=== PATIENT | male | born 1970 | race Caucasian/White ===

== ENCOUNTER 2020-12-27 14:12 | Outpatient (REF) | payer BC, SELFPAY ==
--- NOTE | ~2020-12-27 | MR_ITS ---
EXAMINATION: MR LUMBAR SPINE WITHOUT CONTRAST CLINICAL INFORMATION: 50-year-old with low back pain and left leg neuropathy. History of spinal fusion. COMPARISON: 04/26/2007 MRI. TECHNIQUE: MRI of the lumbar spine was obtained using routine sequences without contrast. FINDINGS: CORONAL ALIGNMENT:?Normal. SAGITTAL ALIGNMENT:?Trace retrolisthesis at L3-L4. LUMBOSACRAL JUNCTION:?Normal. VERTEBRAL BODIES: Normal height. BONE MARROW: Scattered benign vertebral hemangiomata at L3, L2 and T12. No suspicious marrow replacing process or bone marrow edema. CONUS MEDULLARIS:?Terminates at L1.?Morphology and signal is normal. INTRADURAL NERVE ROOTS: Within normal limits. L5-S1: Evidence of previous interbody fusion (ALIF) procedure, with predominant solid osseous fusion across the intervertebral disc space, with concentric osteophytic ridging without significant facet arthropathy. There is mild bilateral neural foraminal stenosis with disc osteophyte complex abutting the exiting L5 nerve roots bilaterally without significant canal compromise. L4-L5: Disc space height and signal are well maintained stable in appearance. Minimal disc bulging is noted on current study with slight flattening of the dural sac and mild anterior marginal endplate spurring without significant canal stenosis. There is mild foraminal narrowing on the left on the current study without neural impingement. L3-L4: Xpxc-hz-vieeusry loss of disc space height is noted, with disc desiccation consistent with disc degenerative change which has developed since the previous study. There is trace retrolisthesis at this level and there is flattening of the dural sac with vjte-ra-pkfubfdt anterolateral spondylosis progressed from previous exam. Degenerative marrow signal changes are seen along the endplates. There is mild central spinal canal stenosis, with mild narrowing of the subarticular zones bilaterally, with mild bilateral neural foraminal stenosis. Disc bulging abuts the exiting L3 nerve roots bilaterally. L2-L3: Disc space height has mildly narrowed since the previous exam with development of disc desiccation and moderate anterior marginal spondylosis developed since previous exam. There is diffuse disc bulging with a superimposed left foraminal disc herniation without significant facet arthropathy. There is mild flattening of the dural sac without significant central spinal canal or lateral recess stenosis. There is mild left-sided neural foraminal stenosis on the current study without neural impingement. L1-L2: Disc space height and signal well maintained without significant disc bulge or herniation and no significant spondylosis, facet arthrosis, canal or neural foraminal stenosis. PARASPINAL/RETROPERITONEAL: The paravertebral soft tissues appear unremarkable. There are multiple bilateral renal parapelvic cysts. MR/MR lumbar spine wo con IMPRESSION: 1. Evidence of previous anterior lumbar interbody fusion at the L5-S1 level with postoperative changes and mild neural foraminal narrowing, left more than right. 2. Development of discogenic degenerative changes at L2-L3 and L3-L4 with trace retrolisthesis at L3-L4 with development of disc bulging and spondylosis at these levels with crowding of the subarticular zones bilaterally at L3-L4 with mild central spinal canal stenosis and mild bilateral neural foraminal stenosis with disc bulging abutting the exiting L3 nerve roots bilaterally. Left-sided subarticular to foraminal disc herniation at L2-L3 also noted without neural impingement. Minimal disc bulging at L4-L5 as described above. 3. Probable bilateral renal parapelvic cysts.
== END 2020-12-27 14:13 | disposition home or self-care (01) ==
LOC: HO.MRI 14:12
PROVIDERS: Visit Provider Internal Medicine
DX: M54.16 Radiculopathy, lumbar region (principal); M54.9 Dorsalgia, unspecified; M43.26 Fusion of spine, lumbar region
CPT/HCPCS: 72148

== ENCOUNTER → 2022-02-19 12:01 | Outpatient (RCR) | payer BC, SELFPAY ==
--- NOTE | 2020-12-31 12:45 | MHC.PT.DC ---
[facility] [place] Office [place] Office [place] Office [address] Elmo Boyer [address] [phone] F: [phone] F: [phone] F: [phone] F: [phone] Physical Therapy Discharge Report Diagnosis: This is a 50 yo male presenting to skilled PT with a script for back pain, L leg radiculopathy. Date of Surgery: Date of Evaluation: 11/25/20 Date of Discharge: Treatments to Date: 6 Cancellations to Date: 0 No Shows to Date: 0 Discharge Status: Patient Elected to Stop Discharge Summary: 12/23: PT able to perform basic core activation exercises and activities in preferred ranges/ capacity well; Pt continues to report unchanged Sx and expresses frustration at having to go through PT before obtaining an image in order to see a specialist. 12/17/20: Ru has attended therapy for about 1 month for management of his back pain and L LE radicular symptoms; he has participated in treatment sessions and has been performing his home program to his tolerance with no meaningful change and demonstrates inability to centralize and abolish his L LE radicular symptoms. Ru has been working on his core strengthening, and activity modification though has not improved his tolerance for sitting and standing for duration, lifting objects of weight from the floor, he continues to require modifications to perform LE dressing d/t pain, and persists with intermittent severe pain and at least 2/10 baseline pain which is constant. Subjective back pain questionnaire (Susie) unchanged since evaluation. Electronically signed by: Alexx Ramirez PT. Please sign and return to therapist. Thank you for your referral.
== END | disposition home or self-care (01) ==
LOC: HO.PTCHIC 11-25 12:43
PROVIDERS: PCP Internal Medicine; Visit Provider Internal Medicine
DX: M54.9 Dorsalgia, unspecified (principal); M54.16 Radiculopathy, lumbar region; M43.26 Fusion of spine, lumbar region
CPT/HCPCS: 97110; 97140; 97161; 97530

== ENCOUNTER 2022-08-07 14:46 | Outpatient (REF) | payer BC, SELFPAY ==
--- NOTE | ~2022-08-07 | MR_ITS ---
EXAMINATION: MR CERVICAL SPINE WITHOUT CONTRAST CLINICAL INFORMATION: 52-year-old with self-reported neck and right shoulder pain radiating to the hand with tingling in the fingers of 6 months' duration. Cervical disc disorder with recurrent pain. History of C5-C6 surgery. COMPARISON: 09/29/2018 MRI. TECHNIQUE: MRI of the cervical spine was obtained using routine sequences without contrast. FINDINGS: ALIGNMENT: Slight lordotic reversal centered at C3-C4 slightly more apparent on current study. Retrospectively seen mild retrolisthesis of C5-C6 has been reduced status post ACDF at this level with metallic hardware artifact. CRANIOCERVICAL JUNCTION/C1-C2 ARTICULATIONS: Intact and aligned. VISUALIZED INTRACRANIAL STRUCTURES: Within normal limits. VERTEBRAL BODIES: Normal height. DISC SPACES AND ENDPLATES: Moderate disc space height loss and disc desiccation at C3-C4 stable in appearance, with a Schmorl's node along the inferior endplate of C3 asymmetric to the left similar to the previous exam. Status post ACDF at C5-C6 since the previous exam. Minor anterior marginal endplate spurring at C3-C4 unchanged. BONE MARROW: No significant marrow-replacing process or bone marrow edema within the limitations of the study with ferromagnetic artifact at C5-C6 partially obscuring the osseous structures at this level. Minimal type II degenerative marrow signal changes seen adjacent to a Schmorl's node along the inferior endplate of C3 on the left unchanged. Small benign vertebral hemangioma noted in the T1 vertebral body unchanged. C2-C3: Shallow broad-based disc protrusion stable in appearance without cord impingement or canal stenosis. Minor facet arthrosis on the right and mild uncinate process spurring on the left without significant neural foraminal stenosis. C3-C4: Mild broad-based disc osteophyte complex, with flattening of the ventral dural sac without cord impingement or significant canal stenosis. Uncovertebral spurring noted bilaterally similar to previous study with hbkcvxvp-mv-unheny bilateral neural foraminal stenosis, left more than right stable in appearance. C4-C5: Minimal central disc protrusion with slight indentation of the ventral thecal sac without cord impingement or significant canal stenosis stable in appearance. Bilateral uncinate process spurring noted with mild left and moderate right neural foraminal stenosis stable in appearance. C5-C6: Status post ACDF since the previous exam at this level, with an improvement in the appearance of the spinal canal. No recurrent spinal canal stenosis. Posterolateral osteophytic ridging is noted with minor facet hypertrophic changes. There is fkov-yd-howusqbw bilateral neural foraminal stenosis improved from previous exam. C6-C7: This level is not optimally visualized due to artifacts. Within these limitations, there is suspicion for a new right paramedian disc herniation which may be slightly impinging on the right side of the ventral spinal cord and possibly encroaching on the ventral root of C7 on the right but this is difficult to confirm with a high degree of certainty due to poor signal in this region. There is uncovertebral and facet arthrosis bilaterally with mild right-sided and moderate left-sided neural foraminal stenosis probably unchanged. C7-T1: No disc herniation or canal stenosis. Moderate bilateral facet arthropathy noted progressed from previous study, now with moderate bilateral neural foraminal stenosis progressed from previous study, with probable encroachment on the exiting C8 nerve roots bilaterally. Limited assessment at this level due to poor signal. SPINAL CORD: The cervical and visualized upper thoracic spinal cord is normal in caliber and signal throughout without focal lesion, edema or syrinx. EXTRACRANIAL SOFT TISSUES: The visualized extracranial head/neck soft tissues are unremarkable within the limitations of the study. MR/MR cervical spine wo con IMPRESSION: 1. Status post ACDF at the C5-C6 level since the previous exam with improvement in the appearance of the spinal canal and neural foramina at this level, with gwxv-yw-zklwvvdn residual bilateral neural foraminal stenosis. 2. Discogenic degenerative changes at C3-C4 with disc osteophyte complex and DJD at this level with yhkwqfpi-wb-bcmscw bilateral neural foraminal stenosis, left more than right stable in appearance. Mild left and moderate right-sided neural foraminal stenosis at C4-C5 unchanged. Mild right-sided and moderate left-sided neural foraminal stenosis at C6-C7 unchanged. 3. Minimal central disc protrusion at C4-C5 and mild broad-based disc protrusion at C2-C3 without cord impingement or canal stenosis stable in appearance. Possible new, small right paramedian disc herniation at C6-C7 which may be encroaching on the ventral aspect of the spinal cord on the right but difficult to confirm with a high degree of certainty due to poor signal intensity in the lower portion of the cervical spine. If clinically warranted, 3T MRI can be done for better assessment. 4. Bilateral facet arthropathy at C7-T1 progressed from previous exam now with rqatmanr-om-rvkfvi bilateral neural foraminal stenosis progressed from previous study with probable encroachment on the exiting C8 nerve roots bilaterally.
== END 2022-08-07 14:47 | disposition home or self-care (01) ==
LOC: HO.MRI 14:46
PROVIDERS: PCP Internal Medicine; Visit Provider Internal Medicine
DX: M50.122 Cervical disc disorder at C5-C6 level with radiculopathy (principal); M25.512 Pain in left shoulder
CPT/HCPCS: 72141

== ENCOUNTER 2023-01-08 16:39 | Outpatient (REF) | payer BC, SELFPAY ==
--- NOTE | ~2023-01-08 | XR_ITS ---
EXAMINATION: XR CHEST CLINICAL INFORMATION: Dyspnea COMPARISON: Chest radiographs 09/05/2010, 02/21/2007. TECHNIQUE: 3 views of the chest were obtained. FINDINGS: The lungs are clear. The vascularity is normal. The heart is normal in size. There is no pneumothorax, airspace consolidation, or effusion. The hilar and mediastinal contours are unremarkable. There are postsurgical changes lower cervical spine and a piercing overlying the right anterior chest. XR/XR chest 2V IMPRESSION: Unremarkable examination.
[2023-01-08 16:58] LABS: MANUAL DIFF FLAG NO
[2023-01-08 17:48] LABS: Basophils Percent Auto 0.3 % (0-2); Eosinophils Absolute Auto 0.1 X10*3/uL (0.0-0.4); Eosinophils Percent Auto 0.4 % (0-4); Hematocrit 51.4 % (42.0-52.0); Hemoglobin 17.2 g/dl (14.0-18.0); Imm Gran Abs Auto 0.05 X10*3/uL (0.00-0.03); Imm Gran Pct Auto 0.4 % (0.0-0.4); Lymphocytes Absolute Auto 0.8 X10*3/uL (1.2-4.9); Lymphocytes Percent Auto 5.7 % (20-40); Mean Corpuscular HGB Conc 33.5 g/dl (31.0-36.0); Mean Corpuscular Hemoglobin 28.4 pg (27.0-33.0); Mean Platelet Volume 9.5 fL (9.4-12.4); Monocytes Absolute Auto 0.7 X10*3/uL (0.1-1.2); Monocytes Percent Auto 5.4 % (2-11); Neutrophils Absolute Auto 11.6 x10*3/uL (2.0-8.3); Neutrophils Percent Auto 87.8 % (45-73); Platelet Count 329 X10*3/uL (160-400); Red Blood Count 6.05 X10*6/uL (4.60-5.80); Red Cell Distribution Width 13.5 % (11.0-16.0); White Blood Count 13.2 X10*3/uL (4.8-10.8)
[2023-01-08 18:24] LABS: B Type Natriuretic Peptide < 10 pg/mL (<100)
[2023-01-08 18:39] LABS: Thyroid Stimulating Hormone 1.43 uIU/mL (0.32-4.0)
[2023-01-08 18:40] LABS: Alanine Aminotransferase 53 U/L (0-40); Albumin Level 4.2 g/dL (3.5-5.0); Alkaline Phosphatase 62 U/L (39-117); Anion Gap 18 (12-20); Aspartate Amino Transferase 74 U/L (5-37); Bilirubin Total 0.6 mg/dL (0.0-1.0); Blood Urea Nitrogen 33 mg/dL (9-16); C Reactive Protein 0.67 mg/dL (< or = 0.50); Calcium 9.8 mg/dL (8.4-10.2); Carbon Dioxide 26 mmol/L (22-29); Chloride 101 mmol/L (96-108); Estimated Glomerular Filt Rate 54; Glucose Random 60 mg/dL (60-115); Potassium 5.2 mmol/L (3.3-5.1); Sodium 140 mmol/L (135-145)
[2023-01-08 18:55] LABS: D Dimer High Sensitivity 275 NG/ML
== END 2023-01-08 16:40 | disposition home or self-care (01) ==
LOC: HO.LAB 16:39
PROVIDERS: PCP Internal Medicine; Visit Provider Internal Medicine
DX: R30.0 Dysuria (principal); I45.10 Unspecified right bundle-branch block; G47.33 Obstructive sleep apnea (adult) (pediatric); M54.9 Dorsalgia, unspecified; E29.1 Testicular hypofunction; R60.9 Edema, unspecified; R00.2 Palpitations
CPT/HCPCS: 36415; 71046; 80053; 82550; 83880; 84443; 85025; 85379; 86140

== ENCOUNTER 2023-05-24 12:07 | Outpatient (REF) | payer BC, SELFPAY ==
--- NOTE | ~2023-05-24 | XR_ITS ---
EXAMINATION: XR HIP, LEFT CLINICAL INFORMATION: Pain. COMPARISON: None available. TECHNIQUE: AP and frog-leg lateral views of the left hip. FINDINGS: No fracture. Alignment is anatomic. Hip joint space is maintained. Soft tissues are unremarkable. Vasectomy clips are noted. XR/XR hip LT min 2V IMPRESSION: Normal left hip.
[2023-05-24 12:28] LABS: MANUAL DIFF FLAG NO
[2023-05-24 14:31] LABS: Basophils Absolute Auto 0.1 X10*3/uL (0.0-0.2); Eosinophils Absolute Auto 0.2 X10*3/uL (0.0-0.4); Eosinophils Percent Auto 2.4 % (0-4); Hematocrit 56.3 % (42.0-52.0); Hemoglobin 18.6 g/dl (14.0-18.0); Imm Gran Abs Auto 0.02 X10*3/uL (0.00-0.03); Imm Gran Pct Auto 0.3 % (0.0-0.4); Lymphocytes Percent Auto 15.4 % (20-40); Mean Corpuscular Hemoglobin 27.6 pg (27.0-33.0); Mean Corpuscular Volume 83.5 fL (80.0-98.0); Mean Platelet Volume 9.7 fL (9.4-12.4); Monocytes Absolute Auto 0.4 X10*3/uL (0.1-1.2); Monocytes Percent Auto 6.3 % (2-11); Neutrophils Absolute Auto 4.6 x10*3/uL (2.0-8.3); Neutrophils Percent Auto 74.6 % (45-73); Platelet Count 291 X10*3/uL (160-400); Red Blood Count 6.74 X10*6/uL (4.60-5.80); Red Cell Distribution Width 14.6 % (11.0-16.0); White Blood Count 6.2 X10*3/uL (4.8-10.8)
[2023-05-24 15:16] LABS: Erythrocyte Sedimentation Rate 1 MM/HR (0-15)
[2023-05-24 15:29] LABS: Alanine Aminotransferase 62 U/L (0-40); Alkaline Phosphatase 96 U/L (39-117); Anion Gap 13 (12-20); Aspartate Amino Transferase 58 U/L (5-37); Bilirubin Total 0.8 mg/dL (0.0-1.0); Blood Urea Nitrogen 27 mg/dL (9-16); C Reactive Protein < 0.10 mg/dL (< or = 0.50); Calcium 9.4 mg/dL (8.4-10.2); Carbon Dioxide 30 mmol/L (22-29); Chloride 102 mmol/L (96-108); Estimated Glomerular Filt Rate 58; Glucose Random 79 mg/dL (60-115); Potassium 4.7 mmol/L (3.3-5.1); Sodium 140 mmol/L (135-145); Total Protein 6.9 g/dL (6.5-8.0)
[2023-05-24 15:35] LABS: Thyroid Stimulating Hormone 0.97 uIU/mL (0.32-4.0)
== END 2023-05-24 12:08 | disposition home or self-care (01) ==
LOC: HO.XRAY 12:07
PROVIDERS: PCP Internal Medicine; Visit Provider Internal Medicine
DX: R00.0 Tachycardia, unspecified (principal); M25.552 Pain in left hip
CPT/HCPCS: 36415; 73502; 80053; 82550; 84439; 84443; 85025; 85652; 86140

== ENCOUNTER 2023-09-13 13:44 | Outpatient (REF) | payer BC, SELFPAY ==
--- NOTE | ~2023-09-13 | XR_ITS ---
EXAMINATION: XR CHEST CLINICAL INFORMATION: Right-sided pneumonia. COMPARISON: Chest 01/08/2023. TECHNIQUE: 2 views of the chest were obtained. FINDINGS: The lungs are well-expanded with bilateral patchy parahilar opacity suggestive of infiltrate. Rest of lungs are clear. The heart size and pulmonary vascularity is normal. No gross bony abnormality seen. XR/XR chest 2V IMPRESSION: Bilateral parahilar patchy opacity suggestive of infiltrate.
== END 2023-09-13 13:45 | disposition home or self-care (01) ==
LOC: HO.XRAY 13:44
PROVIDERS: PCP Internal Medicine; Visit Provider Internal Medicine
DX: J18.9 Pneumonia, unspecified organism (principal)
CPT/HCPCS: 71046

== ENCOUNTER → 2023-12-30 10:20 | Outpatient (BNVA) | payer SELFPAY | PROVIDERS: PCP Internal Medicine; Visit Provider Physician Assistant | DX: Z02.79 Encounter for issue of other medical certificate (principal) ==

== ENCOUNTER 2025-01-30 13:09 | Outpatient (AMB) | payer BC, SELFPAY ==
--- NOTE | 2025-01-30 13:14 | MHC.OFFVIS ---
Intake Visit Reasons: feeling of incomplete bladder emptying Intake Note: New patient presents today for initial visit for incomplete bladder emptying Urology Medication:none Blood Thinner:Eliquis Antibiotic Allergies:none PVR:30ml Allergies No Known Allergies [NKA] Allergy (Verified 01/30/25 13:16) HPI Comments Details: Ru is a very pleasant 54-year-old male patient of Dr. Plaza. He has a past medical history of obstructive sleep apnea, hyperlipidemia, congestive heart failure, AFib, pulmonary embolisms, anxiety, and depression. He presents to the office today as a new patient for ongoing lower urinary tract symptoms. In discussion with the patient today he reports following up with his PCP in discussing ongoing episodes of incomplete bladder emptying, weak urinary stream, and nocturia he had been experiencing at which time recommendations were made for urology referral for further assessment evaluation. In review of patient's chart it appears he has had a recent retroperitoneal ultrasound 12/12 that notes normal urinary bladder. Prostate volume of 38 mL. No sonography thick evidence of nephrolithiasis or hydronephrosis. Left peripelvic cysts measuring up to 2.7 cm PSA 11/11 1.5. In office urinalysis results were reviewed with the patient today PVR 30 mL. We discussed potential causes of lower urinary tract symptoms patient was experiencing as well as further treatment options and risks and benefits of these treatment options. He otherwise denies incontinence,hematuria, dysuria, foul smelling urine, flank pain, fever, and or chills. He does report compliance with CPAP for his sleep apnea. He otherwise offers no other issues or concerns at this time. [facility] Medical History Obstructive sleep apnea syndrome Reticular venous varices Right bundle branch block Obesity Obesity with body mass index 30 or greater Hyperlipidemia Testicular hypofunction Umbilical hernia Factor V Leiden mutation Congestive heart failure Atrial fibrillation History of pulmonary embolus (PE) Post cardiotomy syndrome Generalized anxiety disorder Mixed anxiety and depressive disorder Major depressive disorder Chronic kidney disease Herpes labialis Dependence on continuous positive airway pressure ventilation Surgical History History of umbilical hernia repair History of lumbar spinal fusion Hx of cervical spine surgery Review of Systems Const All systems reviewed & are unremarkable except as noted in HPI and below Physical Exam Const General: cooperative, healthy appearing, comfortable, no acute distress, well developed, alert and awake Orientation/consciousness: patient oriented x3 Limitations: no limitations HEENT Head: Yes normal to inspection, Yes normocephalic and Yes atraumatic Ears: hearing grossly normal bilaterally Eyes General: appearance normal, both eyes and all related structures Neck Neck: Yes normal visual inspection and Yes trachea midline Chest Chest palpation & inspection: normal inspection of the chest Resp Effort & Inspection: normal respiratory effort and able to speak in complete sentences Cardio Rate: regular rate GI Inspection: Yes normal to inspection General: Yes no CVA tenderness Back/Spine/Pelvis Back: no CVA tenderness Skin General skin exam: no rashes or lesions noted Neuro General: patient oriented x3 Extrem General: Yes normal to inspection Psych Appearance: grossly normal and well kempt Mental Status: mental status grossly normal Speech and movement: Normal speech and movement present and Clear speech present Affect: normal affect Attitude: cooperative Thought process: Normal thought process present Thought content: Normal thought content present Insight: Fair insight present (Psych) Judgement: Fair judgement present (Psych) Office Procedures Post Void Residual Post Residual Void Post Void Residual (PVR): 30 37702-Qnex Void Residual by ultrasound Results AMB Urinalysis, Automated UA Leukoctes 0 Cassie/uL Last Edit by Verified Person on 01/30/25 13:58 UA Nitrite Last Edit by Verified Person on 01/30/25 13:58 UA Urobilinogen 0.2 mg/dL Last Edit by Verified Person on 01/30/25 13:58 UA Protein 15 mg/dL Last Edit by Verified Person on 01/30/25 13:58 UA pH 6.0 Last Edit by Verified Person on 01/30/25 13:58 UA Blood 10 Aniket/uL Last Edit by Verified Person on 01/30/25 13:58 UA Specific Fowler 1.015 Last Edit by Verified Person on 01/30/25 13:58 UA Ketone Last Edit by Verified Person on 01/30/25 13:58 UA Bilirubin 0 mg/dL Last Edit by Verified Person on 01/30/25 13:58 UA Glucose 1000 mg/dL Last Edit by Verified Person on 01/30/25 13:58 Assessment & Plan Assessment & Plan (1) Weak urinary stream: Code(s): R39.12 - Poor urinary stream Category: Medical (2) Nocturia: Code(s): R35.1 - Nocturia Category: Medical (3) Feeling of incomplete bladder emptying: Code(s): R39.14 - Feeling of incomplete bladder emptying Category: Medical Plan In office urinalysis results reviewed with the patient today; as noted above. PVR 30 mL. Recent retroperitoneal ultrasound results reviewed with the patient today; as noted above. Recent PSA results reviewed with the patient today; as noted above. We discussed at length potential causes of lower urinary tract symptoms he is experiencing as well as further treatment options and risks and benefits of these treatment options. Start Flomax as discussed and prescribed. We discussed importance of limiting fluids 2-3 hours prior to bed to decrease episodes of nocturia. We discussed importance of continuing compliance with CPAP machine in relation to nocturia as well as overall health and well-being. Follow-up in 1-3 months with PVR; or sooner with any issues, concerns, and or questions. Orders: Orders AMB Urinalysis Automated Today Z13.9 - Encounter for screening, unspecified AMB Post Void Residual by ultrasound Today Z13.9 - Encounter for screening, unspecified Medications: New tamsulosin 0.4 mg PO BEDTIME 30 days 30 caps 3RF N40.1 - Benign prostatic hyperplasia with lower urinary tract symptoms, R35.1 - Nocturia Patient Instructions: The patient had an opportunity to ask questions regarding the treatment plan. All questions were answered. Physical exam, labs, and imaging were discussed and reviewed in detail. As well as risks, benefits, and discussion of treatment choices. No major barriers to understanding were identified. The patient expressed understanding and agreement with the above treatment plan. The patient was made aware they should contact our office by phone for worsening of their current condition, the appearance of new symptoms, or with any questions or concerns. Compliance is encouraged with any medications and follow up testing that is ordered. It is a privilege to be allowed the opportunity to participate in? your urological care.? Again, if you have any questions or concerns If you have any questions or concerns please do not hesitate to contact me. The office is [phone]. This note is constructed using voice recognition software. While every effort has been made to ensure accuracy protective service specialist errors may have been included. Yours sincerely, DORENE Schaefer- Coding Level of Care Code New Pt Level 4 (70895) Diagnoses Weak urinary stream R39.12 Nocturia R35.1 Feeling of incomplete bladder emptying R39.14 CPT Codes Post Residual Void - PVR CPT Code: 75874-Npme Void Residual by ultrasound ([id number])
--- OUTSIDE RECORDS SUMMARY | 2025-01-30 16:02 | XMS_ITS | Encounter Summary ---
Author Organization [facility] Address [address] [place] [address] Phone Care Team Providers Care Senior Sql Server Dba Name Role Phone Artemio Plaza MD Primary Care Provider [phone] Encounter Details Date Type Department Care Team (Late st Contact Info) Description 01/01/2025 Documentation Only [facility] [address] [place] [address] Martin Minor [place] [address] [place] [phone] Social History Tobacco Use Types Packs/Day Years Used Date Smoking Tobacco: Never Assessed Sex and Gender Information Value Date Recorded Sex Assigned at Not on file Legal Sex Male 2:30 PM EDT Gender Identity Not on file Sexual Orientation Not on file documented as of this encounter Plan of Treatment Upcoming Encounters Date Type Department Care Team (Late st Contact Info) Description 05/30/2025 3:30 PM EDT Office Visit [facility] [address] [place] [address] Juan Pablo Chery [address] [place] [address] documented as of this encounter Visit Diagnoses Not on filedocumented in this encounter Care Teams Senior Sql Server Dba Relationship Specialty Start Date End Date Artemio Plaza MD [address] [phone] PCP - General Family Medicine 01/01/25 documented as of this encounter
--- OUTSIDE RECORDS SUMMARY | 2025-01-30 16:02 | XMS_ITS | Encounter Summary ---
Author Organization [facility] Address [address] [place] [address] Phone Care Team Providers Care Repairer Finished Metal Name Role Phone Artemio Plaza MD Primary Care Provider [phone] Encounter Details Date Type Department Care Team (Late st Contact Info) Description 01/24/2025 Documentation Only [facility] [address] [place] [address] Martin Minor MD [address] [place] [phone] Social History Tobacco Use Types Packs/Day Years [...] Visit [facility] [address] [place] [address] Juan Pablo Chery [address] [place] [address] documented as of this encounter Visit Diagnoses Not on filedocumented in this encounter Care Teams Repairer Finished Metal Relationship Specialty Start Date End Date Artemio Plaza MD [address] [phone] PCP - General Family Medicine 01/01/25 documented as of this encounter
--- OUTSIDE RECORDS SUMMARY | 2025-01-30 16:02 | XMS_ITS | Clinical Summary ---
Author Organization [facility] Address [address] [place] [address] Phone Care Team Providers Care Stonecutter Name Role Phone Artemio Plaza MD Primary Care Provider [phone] Encounters Date Type Department Care Team Description 01/24/2025 Documentation Only [facility] [address] [place] [address] Martin Minor MA 01/16/2025 Telephone [facility] [address] [place] [address] Martin Minor MA 01/01/2025 Documentation Only [facility] [address] [place] [address] Martin Minor MA from Last 3 Months Social History Tobacco Use Types Packs/Day Years Used Date Smoking Tobacco: Never Assessed Sex and Gender Information Value Date Recorded Sex Assigned at Not on file Legal Sex Male 2:30 PM EDT Gender Identity Not on file Sexual Orientation Not on file Plan of Treatment Upcoming Encounters Date Type Department Care Team (Late st Contact Info) Description 05/30/2025 3:30 PM EDT Office Visit [facility] [address] [place] [address] Juan Pablo Chery [address] [place] [place] [address] Health Maintenance Due Date Last Done Comments Hepatitis B Vaccine (1 of 3 - 19+ 3-dose series) 06/26 Pneumococcal Vaccine: 50+ Years (1 of 2 - PCV) 988 Colorectal Cancer Screening: Annual FOBT 2018 Colorectal Cancer Screening: Colonoscopy 2018 Colorectal Cancer Screening: Sigmoidoscopy 2018 Influenza Vaccine (Season Ended) 2025 Insurance [facility] Care Teams Stonecutter Relationship Specialty Start Date End Date Artemio Plaza MD [address] [phone] PCP - General Family Medicine 01/01/25
--- OUTSIDE RECORDS SUMMARY | 2025-01-30 16:02 | XMS_ITS | Patient Health Record ---
[facility] Address [address] [place] [address] Care Team Providers Care Sales And Service Agent Name Role Phone Artemio Plaza Primary Care Provider Bhavana Pennington Unavailable [phone] Allergies No Known Allergies Reason For Referral Diagnosis 1 Hallux valgus (acqui red), right foot (M20.11) Diagnosis 2 Other hammer toe(s) (acquired), right foot (M20.41) Diagnosis 3 Pain in right foot ( M79.671) Diagnosis 4 Pain in left foot (M 79.672) Diagnosis 5 Other viral warts (B 07.8) Diagnosis 6 Tinea unguium (B35.1 ) Referring Provider First Name Artemio Referring Provider Last Name Bola [facility] Bhavana Lopez Referred Address [address] [place], [place],[address], Referred Provider Specialty Podiatry Referral Priority Routine Medications Medication SIG (Take, Route, Fr equency, Duration) Notes Start Date End Date Status Venlafaxine HCl Acti ve Vitamin C Active traZODone HCl 150 MG 1 tablet at bedtime Orally Once a day for 30 day(s) Active Testosterone Active Multivitamin Active Immunizations Vaccine Route Administration Date Status Comme nts COVID-19 Moderna Vaccine Unknown 06/18/2022 Administered 2020,2020,2020 unsure dates Social History Tobacco Use: Social History Observation Description Date Details (start date - stop date) Former Smoker NA - NA Tobacco Use/Smoking Question Answer Notes Are you a: former smoker Additional Findings: Tobacco Non-User Current no n-smoker Alcohol Screen Question Answer Notes Did you have a drink containing alcohol in the p ast year? No Points 0 Interpretation Negative Tobacco use other than smoking: Question Answer Notes Are you an other tobacco user? No Problems Problem Type SNOMED Code ICD Code Onset Dates Problem Status W/U Status Risk Notes Problem Acquired hallux valgus (82180782) Hallux valgus (acquired), right foot (M20.11) Active confirmed Problem Acquired hammer toe of right foot ([id number] 105) Other hammer toe(s) (acquired), right foot (M20.41) Active confirmed Encounters Encounter Location Date Provider Diagnosis [facility] [place] [address] [place] [address] 11/01/2024 Bhavana Lopez Plan Of Treatment Pending Test Test Name Order Date X ray : Foot, right 3V 11/23/2022 Insurance Providers Payer Name Payer Address Payer Phone Subscriber Number Group Number Insured Name Patient Relationship to Insured Coverage Start Date Coverage End Date [facility] [address] [place] [address] [id number] Sandeep Victor Self - patient is the insured Medical (General) History Medical History History ICD Code Broken bones Chicken pox Bone implants/screws Surgical History Surgery Date(Month/Year) L 5 S1 Fusion C4 disc replacement 11/11/22 C3 C4 disc replacement /fusion
--- OUTSIDE RECORDS SUMMARY | 2025-01-30 16:03 | XMS_ITS ---
Author Organization [facility] Address [address] [place] [address] Care Team Providers Care Repairer Switchgear Name Role Phone Artemio Plaza Primary Care Provider Bhavana Pennington [phone] Encounters Encounter Location Date [facility] [address] [address] 11/07/2024 Bhavana Lopez Plan Of Treatment No Information Progress Notes * Sandeep HERNÁNDEZ MDOB:1970 (54 yo M)Acc No.[id number]:11/07/2024 Progress Note Patient:?Sandeep HERNÁNDEZ Provider:?Bhavana Lopez DPM :1970???Age:54 Y???Sex:Male [place] e:11/07/2024 Address:[address] [place], [place] [id number] Pcp:Artemio Plaza Subjective: * Chief Complaints: * ??? * Medical History:? Objective: * Vitals:? Assessment: Plan: * Treatment: * Images: * The named appointment provid er may or may not be the originator of this progress note, and it is not deemed complete until electronically signed by the appointment provider. Sign off status: Pending * Provider:?Bhavana Lopez DPM Date:?0 11/07/2024 Generated for Jackelin rangel/Mckay/eTransmitting on:?01/30/2025 04:02 PM EDT
--- OUTSIDE RECORDS SUMMARY | 2025-01-30 16:03 | XMS_ITS | Data Portability ---
Author Organization [facility], Main Office Address [address] [place] [address] Care Team Providers Care Terrazzo Grinder Name Role Phone MIRNA BILLY Primary Care Provider [phone] MIRIAM HEDRICK Project Management Analyst HILTON HERNANDEZ [facility] dudley MISHA GIBBS General Surgeon [phone] Assessment Encounter Date Assessment Date Assessment LastModified by Organization Details LastModified Time 01/06/2024 01/06/2024 Discussed with patient the signs/symptoms warranted for a return to office visit and/or an ER visit. Patient understood and agreed with the plan. Not available 01/06/2024 10:58:31 01/24/2024 01/24/2024 This service was provided using telemedicine. Patient consented to video & audio visit Patient was located in the [facility]. Provider was located in the office. No other persons participated in the telemedicine visit except for the patient unless otherwise indicated here. {{}} Total time of visit was 10 minutes. [email or web address] Not available 01/24/2024 16:22:54 Plan of Treatment Reminders Order Date Submit Date Provider Last Modified By Organization Details Last Modified Time Details Appointments PE EST 2024 10:30A M Mirna Billy MD Not available Not available Not available Lab PSA, serum or plasma 2024 025 ROGER [facility] (Centralized Electronic Ordering - All Locations), Patient Can Go To The Location Of Their Choice, [id number] 11/18/2024 08:08:47 urinal ysis comple te, reflex cultur e 2024 025 ROGER [facility] (Centralized Electronic Ordering - All Locations), Patient Can Go To The Location Of Their Choice, 11/18/2024 08:08:46 BMP, serum or plasma 2024 025 ROGER [facility] (Centralized Electronic Ordering - All Locations), Patient Can Go To The Location Of Their Choice, 11/18/2024 08:08:46 HbA1c (hemog lobin A1c), blood 2024 025 ROGER [facility] (Centralized Electronic Ordering - All Locations), Patient Can Go To The Location Of Their Choice, 11/18/2024 08:08:49 testos terone , total, serum 2024 ROGER [facility] (Centralized Electronic Ordering - All Locations), Patient Can Go To The Location Of Their Choice, 11/18/2024 08:08:48 albumi n, serum or plasma 2024 025 ROGER [facility] (Centralized Electronic Ordering - All Locations), Patient Can Go To The Location Of Their Choice, 11/18/2024 08:08:50 shbg (sex hormon e-bind ing globul in), serum 2024 ROGER [facility] (Centralized Electronic Ordering - All Locations), Patient Can Go To The Location Of Their Choice, 11/18/2024 08:08:51 estrad iol, serum 2024 025 ROGER [facility] (Centralized Electronic Ordering - All Locations), Patient Can Go To The Location Of Their Choice, 11/18/2024 08:08:48 unlist ed lab - jak2 exon 12 mutati on detect ion 2023 024 ROGER [facility], [address], [place], [id number], 11/18/2023 09:06:45 CBC w/ auto diff 2023 024 ROGER [facility], [address], [address], [place], [address], 11/10/2023 10:25:35 TSH, serum or plasma 2023 024 ROGER [facility], [address], [place], [place], [address], 11/10/2023 11:03:21 CMP, serum or plasma 2023 024 ROG[facility], [address], [address], [place], [address], 11/10/2023 10:45:27 PSA, serum or plasma - Screen ing 2023 024 ROGER [facility], [address], [address], [place], [address], 11/10/2023 11:20:16 magnes ium, serum or plasma 2023 024 ROGER [facility], [address], [address], [place], [address], 11/10/2023 10:45:33 erythr opoiet in (epo), serum 2023 024 ROG[facility], [address], [address], [place], [address], 11/11/2023 10:07:04 unlist ed lab - jak2 mutati on analys is 2023 024 ROGER [facility], [address], [address], [place], [address], 11/17/2023 15:15:57 iron + total iron-b inding capaci ty (TIBC) , serum 2023 024 ROGER [facility], [address], [address], [place], [address], 11/10/2023 10:45:28 ferrit in, serum or plasma 2023 024 ROGER [facility], [address], [place], [place], [address], 11/10/2023 11:03:19 lipid panel, serum 2023 024 [email or web address] s [facility], [address], [address], [place], [address], 11/02/2023 13:25:56 hepati tis C virus Ab, serum 2023 024 ROGER [facility], [address], [address], [place], [address], 11/10/2023 22:54:30 unlist ed lab - urinal ysis w/refl ex cultur e 2023 024 ROGER [facility], [address], [address], [place], [address], 11/10/2023 10:50:59 protei n:crea tinine ratio, urine 2023 024 ROGER [facility], [address], [address], [place], [address], 11/10/2023 11:29:50 microa lbumin , urine 2023 024 ROGER [facility], [address], [address], [place], [address], 11/10/2023 11:29:54 unlist ed lab - chlori de, urine, random 2023 024 ROGER [facility], [address], [address], [place], [address], 11/10/2023 11:43:21 potass ium, urine 2023 024 ROGER [facility], [address], [address], [place], [address], 11/10/2023 11:29:51 sodium , urine 2023 024 ROGER [facility], [address], [place], [place], [address], 11/10/2023 11:43:22 CK (creat ine kinase ), total, serum 2023 024 ROGER [facility], [address], [place], [address], 11/10/2023 10:45:34 unlist ed lab - urea nitrog en, urine 2023 024 ROG[facility], [address], [address], [place], [address], 11/10/2023 11:16:00 lipase , serum or plasma 2023 024 ROGER [facility], [address], [place], [address], 11/10/2023 10:45:31 gamma- glutam yl transf erase (ggt), serum 2023 024 ROGER [facility], [address], [address], [place], [address], 11/10/2023 10:45:30 Referral podiat rist referr al - onycho mycosi s of toenai ls 2023 024 [facility], [address], [address], [place], [address], 07/04/2024 08:45:45 dermat ologis t referr al - 2 seborr heic kerato sis on the back 2023 024 [facility], [address], [place], [address], 07/04/2024 08:45:44 genera l surgeo n referr al - for 6 or more visits if needed 2023 024 alan Gibbs MD, [address] [facility] [address], [place], [address], 10/23/2024 11:13:02 gastro entero logist referr al - Needs colon cancer screen ing 2023 024 [email or web address], [address] [place], [address], 11/11/2023 15:42:25 Procedures colono scopy screen ing (PROC) 2023 024 red In-Office Order, Internal Use Only DO Not Attach Compendium DO Not Attach Compendium, Do Not Delete/merge, [id number] 10/27/2023 09:18:24 Surgeries None record ed. Imaging US, bladde r - US bladde r volume study, pls try to visual ize prosta te if possib le, avoidi ng transr ectal US. 2024 025 alan [facility] [place], [address] [facility], [address], [place], [address], 12/05/2024 09:03:55 US, abdome n, limite d - Focus on RUQ., Also has KEYUR if you can focus on kidney as well it would be helpfu ll. 2023 024 ROGER Not available 11/15/2023 08:39:43 Medication Orders valacy clovir 1 gram tablet [address] [id number], [address], [place], [id number], 11/30/2024 15:27:13 Patient TargetsNo targets recorded. Patient Instructions Encounter Date Encounter Id Patient Instructions Last Modified By Organization Details Last Modified Time 10/26/2023 [id number] When You Want to Lose Weight: Care Instructions [email or web address] Not available 10/26/2023 10:54:39 Prostate Cancer Screening [email or web address] Not available 10/26/2023 10:54:39 high blood pressure: care instructions ckokar Not available 10/26/2023 10:54:39 learning about high blood pressure ckokar Not available 10/26/2023 10:54:39 polycythemia: care instructions ckokar Not available 10/26/2023 10:54:39 Well Visit 50 to 65: Care Instructions [email or web address] Not available 10/26/2023 10:54:39 learning about colon cancer ckokar Not available 10/26/2023 10:54:39 body mass index: care instructions ckokar Not available 10/26/2023 10:54:38 learning about healthy weight ckokar Not available 10/26/2023 10:54:39 11/09/2023 [id number] polycythemia: care instructions [email or web address] Not available 11/09/2023 14:16:50 01/06/2024 [id number] skin lesions: care instructions Not available 01/06/2024 11:05:29 Reason for Referral Acute Specialist Referral for Screening for malignant neoplasm of colon Needs colon cancer screening Referring Physician: Mirna Billy [facility], Encounter Date: 10/26/2023 General Surgeon Referral for Umbilical hernia for 6 or more visits if needed Referring Physician: Mirna Billy [facility], Encounter Date: 10/26/2023 Compressor Mechanic Referral for S kin lesion 2 seborrheic keratosis on the back Referring Physician: Gabriela Jorgensen [facility], Encounter Date: 01/06/2024 [employer] Support Planner Referral for Onyc homycosis of toenails onychomycosis of toenails Referring Physician: Gabriela Jorgensen [facility], Encounter Date: 01/06/2024 Results Created Date Observation Date Name Description Value Unit Range Abnormal Flag Note LastModifiedBy Organization Detail LastModifiedTime 11/10/19 24 11/10/2023 COMPL ETE CBC WITH DIFF WBC 7.3 K/mm3 (4.0-1 1.0) Not Available [facility] (Centralized Electronic Ordering - All Locations) Patient Can Go To The Location Of Their Choice, [id number] 11/10/2023 10:25:35 11/10/1911/10/2023 COMPL ETE CBC WITH DIFF RBC 6.25 M/mm3 (4.70- 6.10) high Not Available [facility] (Centralized Electronic Ordering - All Locations) Patient Can Go To The Location Of Their Choice, 11/10/2023 10:25:35 11/10/1911/10/2023 COMPL ETE CBC WITH DIFF HGB 18.3 gm/dL (13.7- 17.1) high Not Available [facility] (Centralized Electronic Ordering - All Locations) Patient Can Go To The Location Of Their Choice, 11/10/2023 10:25:35 11/10/1911/10/2023 COMPL ETE CBC WITH DIFF HCT 53.0 % (40.5- 50.0) high Not Available [facility] (Centralized Electronic Ordering - All Locations) Patient Can Go To The Location Of Their Choice, 11/10/2023 10:25:35 11/10/1911/10/2023 COMPL ETE CBC WITH DIFF MCV 84.8 fL (80.0- 94.0) Not Available [facility] (Centralized Electronic Ordering - All Locations) Patient Can Go To The Location Of Their Choice, 11/10/2023 10:25:35 11/10/1911/10/2023 COMPL ETE CBC WITH DIFF MCH 29.3 pg (27.0- 34.0) Not Available [facility] (Centralized Electronic Ordering - All Locations) Patient Can Go To The Location Of Their Choice, 11/10/2023 10:25:35 11/10/1911/10/2023 COMPL ETE CBC WITH DIFF MCHC 34.5 g/dL (33.0- 37.0) Not Available [facility] (Centralized Electronic Ordering - All Locations) Patient Can Go To The Location Of Their Choice, 11/10/2023 10:25:35 11/10/1911/10/2023 COMPL ETE CBC WITH DIFF plt 188 K/mm3 (150-4 60) Not Available [facility] (Centralized Electronic Ordering - All Locations) Patient Can Go To The Location Of Their Choice, 11/10/2023 10:25:35 11/10/1911/10/2023 COMPL ETE CBC WITH DIFF RDW-SD 42.6 fL (<47.0 ) Not Available [facility] (Centralized Electronic Ordering - All Locations) Patient Can Go To The Location Of Their Choice, 11/10/2023 10:25:35 11/10/1911/10/2023 COMPL ETE CBC WITH DIFF MPV 10.4 fL (9.4-1 2.4) Not Available [facility] (Centralized Electronic Ordering - All Locations) Patient Can Go To The Location Of Their Choice, 11/10/2023 10:25:35 11/10/1911/10/2023 COMPL ETE CBC WITH DIFF automated NRBC 0.0 #/100 _WBC' s Not Available [facility] (Centralized Electronic Ordering - All Locations) Patient Can Go To The Location Of Their Choice, 11/10/2023 10:25:35 11/10/1911/10/2023 COMPL ETE CBC WITH DIFF abs. NRBC 0.0 K/mm3 Not Available [facility] (Centralized Electronic Ordering - All Locations) Patient Can Go To The Location Of Their Choice, 11/10/2023 10:25:35 11/10/1911/10/2023 COMPL ETE CBC WITH DIFF neut # 5.7 K/mm3 (1.3-7 .0) Not Available [facility] (Centralized Electronic Ordering - All Locations) Patient Can Go To The Location Of Their Choice, 11/10/2023 10:25:35 11/10/1911/10/2023 COMPL ETE CBC WITH DIFF lymph # 0.9 K/mm3 (0.8-3 .1) Not Available [facility] (Centralized Electronic Ordering - All Locations) Patient Can Go To The Location Of Their Choice, 11/10/2023 10:25:35 11/10/1911/10/2023 COMPL ETE CBC WITH DIFF mono# 0.5 K/mm3 (0.4-1 .3) Not Available [facility] (Centralized Electronic Ordering - All Locations) Patient Can Go To The Location Of Their Choice, 11/10/2023 10:25:35 11/10/1911/10/2023 COMPL ETE CBC WITH DIFF eo # 0.2 K/mm3 (0.0-0 .4) Not Available [facility] (Centralized Electronic Ordering - All Locations) Patient Can Go To The Location Of Their Choice, 11/10/2023 10:25:35 11/10/1911/10/2023 COMPL ETE CBC WITH DIFF baso # 0.0 K/mm3 (0.0-0 .1) Not Available [facility] (Centralized Electronic Ordering - All Locations) Patient Can Go To The Location Of Their Choice, 11/10/2023 10:25:35 11/10/1911/10/2023 COMPL ETE CBC WITH DIFF abs. imm gran 0.0 K/mm3 Not Available [facility] ([facility] Order[facility] - All Locations) Patient Can Go To The Location Of Their Choice, 11/10/2023 10:25:35 11/10/1911/10/2023 COMPL ETE CBC WITH DIFF neut 78.1 % (44-76 ) high Not Available [facility] (Centralized Electronic Ordering - All Locations) Patient Can Go To The Location Of Their Choice, 11/10/2023 10:25:35 11/10/1911/10/2023 COMPL ETE CBC WITH DIFF lymph 11.6 % (15-43 ) low Not Available [facility] (Centralized Electronic Ordering - All Locations) Patient Can Go To The Location Of Their Choice, 11/10/2023 10:25:35 11/10/1911/10/2023 COMPL ETE CBC WITH DIFF monocyte 7.1 % (4.5-1 0.5) Not Available [facility] (Centralized Electronic Ordering - All Locations) Patient Can Go To The Location Of Their Choice, 11/10/2023 10:25:35 11/10/1911/10/2023 COMPL ETE CBC WITH DIFF eo 2.5 % (0-6) Not Available [facility] (Centralized Electronic Ordering - All Locations) Patient Can Go To The Location Of Their Choice, 11/10/2023 10:25:35 11/10/1911/10/2023 COMPL ETE CBC WITH DIFF baso 0.4 % (0-2) Not Available [facility] (Centralized Electronic Ordering - All Locations) Patient Can Go To The Location Of Their Choice, 11/10/2023 10:25:35 11/10/1911/10/2023 COMPL ETE CBC WITH DIFF imm gran 0.3 % Not Available [facility] (Centralized Electronic Ordering - All Locations) Patient Can Go To The Location Of Their Choice, 11/10/2023 10:25:35 11/10/1911/10/2023 COMPR EHENS KRISTYN METAB OLIC PANL glucose 92 mg/dL (70-99 ) Not Available [facility] (Centralized Electronic Ordering - All Locations) Patient Can Go To The Location Of Their Choice, 11/10/2023 10:45:27 11/10/1911/10/2023 COMPR EHENS KRISTYN METAB OLIC PANL BUN 35 mg/dL (6-20) high Not Available [facility] (Centralized Electronic Ordering - All Locations) Patient Can Go To The Location Of Their Choice, 11/10/2023 10:45:27 11/10/1911/10/2023 COMPR EHENS KRISTYN METAB OLIC PANL creatinine 1.3 mg/dL (0.7-1 .2) high Not Available [facility] (Centralized Electronic Ordering - All Locations) Patient Can Go To The Location Of Their Choice, 11/10/2023 10:45:27 11/10/1911/10/2023 COMPR EHENS KRISTYN METAB OLIC PANL sodium 141 mmol/ L (133-1 45) Not Available [facility] (Centralized Electronic Ordering - All Locations) Patient Can Go To The Location Of Their Choice, 11/10/2023 10:45:27 11/10/1911/10/2023 COMPR EHENS KRISTYN METAB OLIC PANL potassium 3.6 mmol/ L (3.6-5 .2) Not Available [facility] (Centralized Electronic Ordering - All Locations) Patient Can Go To The Location Of Their Choice, 11/10/2023 10:45:27 11/10/1911/10/2023 COMPR EHENS KRISTYN METAB OLIC PANL chloride 102 mmol/ L (98-10 7) Not Available [facility] (Centralized Electronic Ordering - All Locations) Patient Can Go To The Location Of Their Choice, 11/10/2023 10:45:27 11/10/1911/10/2023 COMPR EHENS KRISTYN METAB OLIC PANL bicarbonate 30 mmol/ L (22-29 ) high Not Available [facility] (Centralized Electronic Ordering - All Locations) Patient Can Go To The Location Of Their Choice, 11/10/2023 10:45:27 11/10/1911/10/2023 COMPR EHENS KRISTYN METAB OLIC PANL anion gap 9 (4-17) Not Available [facility] (Centralized Electronic Ordering - All Locations) Patient Can Go To The Location Of Their Choice, 11/10/2023 10:45:27 11/10/1911/10/2023 COMPR EHENS KRISTYN METAB OLIC PANL albumin 4.3 gm/dL (3.4-4 .8) Not Available [facility] (Centralized Electronic Ordering - All Locations) Patient Can Go To The Location Of Their Choice, 11/10/2023 10:45:27 11/10/1911/10/2023 COMPR EHENS KRISTYN METAB OLIC PANL calcium 9.0 mg/dL (8.6-1 0.5) Not Available [facility] (Centralized Electronic Ordering - All Locations) Patient Can Go To The Location Of Their Choice, 11/10/2023 10:45:27 11/10/1911/10/2023 COMPR EHENS KRISTYN METAB OLIC PANL bilirubin,to olegario 0.7 mg/dL (0-1.2 ) Not Available [facility] (Centralized Electronic Ordering - All Locations) Patient Can Go To The Location Of Their Choice, 11/10/2023 10:45:27 11/10/1911/10/2023 COMPR EHENS KRISTYN METAB OLIC PANL total protein 6.7 gm/dL (6.2-8 .2) Not Available [facility] (Centralized Electronic Ordering - All Locations) Patient Can Go To The Location Of Their Choice, 11/10/2023 10:45:27 11/10/1911/10/2023 COMPR EHENS KRISTYN METAB OLIC PANL Ag ratio 1.8 Not Available [facility] (Centralized Electronic Ordering - All Locations) Patient Can Go To The Location Of Their Choice, 11/10/2023 10:45:27 11/10/1911/10/2023 COMPR EHENS KRISTYN METAB OLIC PANL AST 32 U/L (0-40) Not Available [facility] (Centralized Electronic Ordering - All Locations) Patient Can Go To The Location Of Their Choice, 11/10/2023 10:45:27 11/10/1911/10/2023 COMPR EHENS KRISTYN METAB OLIC PANL alk phos 69 U/L (40-12 9) Not Available [facility] (Centralized Electronic Ordering - All Locations) Patient Can Go To The Location Of Their Choice, 11/10/2023 10:45:27 11/10/1911/10/2023 COMPR EHENS KRISTYN METAB OLIC PANL ALT 52 U/L (0-41) high Not Available [facility] (Centralized Electronic Ordering - All Locations) Patient Can Go To The Location Of Their Choice, 11/10/2023 10:45:27 11/10/1911/10/2023 COMPR EHENS KRISTYN METAB OLIC PANL estimated GFR creatinine 64 mL/mi n/1.7 3_M2 Creat inine based estim ated glome rular filtr ation (eGFR ) in adult s is calcu lated using the Natio nal Kidne y Found ation recom serg d 2020 CKD-E PI equat ion. Estim ates GFR from serum creat inine , age and sex. Not Available [facility] (Centralized Electronic Ordering - All Locations) Patient Can Go To The Location Of Their Choice, 11/10/2023 10:45:27 11/10/1911/10/2023 IRON & TIBC iron 121 mcg/d L (45-16 0) Not Available [facility] (Centralized Electronic Ordering - All Locations) Patient Can Go To The Location Of Their Choice, 11/10/2023 10:45:28 11/10/1911/10/2023 IRON & TIBC unsaturated iron binding capac 204 mcg/d L (110-3 70) Not Available [facility] (Centralized Electronic Ordering - All Locations) Patient Can Go To The Location Of Their Choice, 11/10/2023 10:45:28 11/10/1911/10/2023 IRON & TIBC est T. iron bind capacity 325 mcg/d L (155-5 30) Not Available [facility] (Centralized Electronic Ordering - All Locations) Patient Can Go To The Location Of Their Choice, 11/10/2023 10:45:28 11/10/1911/10/2023 IRON & TIBC % iron saturation 37 % (20-55 ) Not Available [facility] (Centralized Electronic Ordering - All Locations) Patient Can Go To The Location Of Their Choice, 11/10/2023 10:45:28 11/10/1911/10/2023 GGTP ggtp 9 U/L (8-61) Not Available [facility] (Centralized Electronic Ordering - All Locations) Patient Can Go To The Location Of Their Choice, 11/10/2023 10:45:29 11/10/1911/10/2023 LIPAS E lipase 40 U/L (13-60 ) Not Available [facility] (Centralized Electronic Ordering - All Locations) Patient Can Go To The Location Of Their Choice, 11/10/2023 10:45:31 11/10/1911/10/2023 LIPID PANEL cholesterol, total 268 mg/dL (<200) high Not Available [facility] - [facility] Locations) Patient Can Go To The Location Of Their Choice, 11/10/2023 10:45:32 11/10/1911/10/2023 LIPID PANEL triglyceride 136 mg/dL (<150) Not Available [facility] Locations) Patient Can Go To The Location Of Their Choice, 11/10/2023 10:45:32 11/10/1911/10/2023 LIPID PANEL HDL chol 53 mg/dL (>39) Not Available [facility] (Centralized Electronic Ordering - All Locations) Patient Can Go To The Location Of Their Choice, 11/10/2023 10:45:32 11/10/1911/10/2023 LIPID PANEL LDL cholesterol, calculated 188 mg/dL (0-130 ) high Not Available [facility] (Centralized Electronic Ordering - All Locations) Patient Can Go To The Location Of Their Choice, 11/10/2023 10:45:32 11/10/1911/10/2023 LIPID PANEL non HDL cholesterol (calc) 215 mg/dL (<160) high Not Available [facility] ([facility] Order[facility] - All Locations) Patient Can Go To The Location Of Their Choice, 11/10/2023 10:45:32 11/10/1911/10/2023 MAGNE SIUM magnesium 2.1 mg/dL (1.6-2 .3) Not Available [facility] (Centralized Electronic Ordering - All Locations) Patient Can Go To The Location Of Their Choice, 11/10/2023 10:45:33 11/10/1911/10/2023 CK,TO OLEGARIO ONLY CK,total only 342 U/L (0-310 ) high Not Available [facility] (Centralized Electronic Ordering - All Locations) Patient Can Go To The Location Of Their Choice, 11/10/2023 10:45:34 11/10/1911/10/2023 UA W/REF JURGEN CULTU RE appear/color LIGHT YELLO W CLEAR Not Available [facility] (Centralized Electronic Ordering - All Locations) Patient Can Go To The Location Of Their Choice, 11/10/2023 10:50:58 11/10/1911/10/2023 UA W/REF JURGEN CULTU RE sp. gravity 1.023 (1.002 -1.030 ) Not Available [facility] (Centralized Electronic Ordering - All Locations) Patient Can Go To The Location Of Their Choice, 11/10/2023 10:50:58 11/10/1911/10/2023 UA W/REF JURGEN CULTU RE urine pH 6.0 (5.0-8 .0) Not Available [facility] (Centralized Electronic Ordering - All Locations) Patient Can Go To The Location Of Their Choice, 11/10/2023 10:50:58 11/10/1911/10/2023 UA W/REF JURGEN CULTU RE urine albumin 1+ (neg) abnormal Not Available [facility] ([facility] Order[facility] - All Locations) Patient Can Go To The Location Of Their Choice, 11/10/2023 10:50:58 11/10/1911/10/2023 UA W/REF JURGEN CULTU RE urine glucose 4+ (neg) abnormal Not Available [facility] ([facility] Order[facility] - All Locations) Patient Can Go To The Location Of Their Choice, 11/10/2023 10:50:58 11/10/1911/10/2023 UA W/REF JURGEN CULTU RE urine ketones NEGATI VE (neg) Not Available [facility] (Centralized Electronic Ordering - All Locations) Patient Can Go To The Location Of Their Choice, 11/10/2023 10:50:58 11/10/1911/10/2023 UA W/REF JURGEN CULTU RE urine bilirubin NEGATI VE (neg) Not Available [facility] (Centralized Electronic Ordering - All Locations) Patient Can Go To The Location Of Their Choice, 11/10/2023 10:50:58 11/10/1911/10/2023 UA W/REF JURGEN CULTU RE urine hemoglobin NEGATI VE (neg) Not Available [facility] (Centralized Electronic Ordering - All Locations) Patient Can Go To The Location Of Their Choice, 11/10/2023 10:50:58 11/10/1911/10/2023 UA W/REF JURGEN CULTU RE urine nitrite NEGATI VE (neg) Not Available [facility] (Centralized Electronic Ordering - All Locations) Patient Can Go To The Location Of Their Choice, 11/10/2023 10:50:58 11/10/1911/10/2023 UA W/REF JURGEN CULTU RE urine leukocyte NEGATI VE (neg) Not Available [facility] (Centralized Electronic Ordering - All Locations) Patient Can Go To The Location Of Their Choice, 11/10/2023 10:50:58 11/10/1911/10/2023 UA W/REF JURGEN CULTU RE urobilinogen NORMAL mg/dL (norm) Not Available [facility] - All Locations) Patient Can Go To The Location Of Their Choice, 11/10/2023 10:50:58 11/10/1911/10/2023 UA W/REF JURGEN CULTU RE urine WBCs <1 /hpf (0-5) Not Available [facility] (Centralized Electronic Ordering - All Locations) Patient Can Go To The Location Of Their Choice, 11/10/2023 10:50:58 11/10/1911/10/2023 UA W/REF JURGEN CULTU RE urine RBCs 1 /hpf (0-3) Not Available [facility] (Centralized Electronic Ordering - All Locations) Patient Can Go To The Location Of Their Choice, 11/10/2023 10:50:58 11/10/1911/10/2023 UA W/REF JURGEN CULTU RE mucus SLIGHT /lpf Not Available [facility] (Centralized Electronic Ordering - All Locations) Patient Can Go To The Location Of Their Choice, 11/10/2023 10:50:58 11/10/1911/10/2023 UA W/REF JURGEN CULTU RE clarity CLEAR (clear ) Not Available [facility] (Centralized Electronic Ordering - All Locations) Patient Can Go To The Location Of Their Choice, 11/10/2023 10:50:58 11/10/1911/10/2023 UA W/REF JURGEN CULTU RE culture indication CULTUR E NOT INDICA KARRI Not Available [facility] (Centralized Electronic Ordering - All Locations) Patient Can Go To The Location Of Their Choice, 11/10/2023 10:50:58 11/10/1911/10/2023 KARL TIN ferritin 206 NG/mL (16-29 4) Not Available [facility] (Centralized Electronic Ordering - All Locations) Patient Can Go To The Location Of Their Choice, 11/10/2023 11:03:19 11/10/1911/10/2023 TSH WITH REFLE X TO FT4 TSH 6.68 uIU/m L (0.4-4 .2) high Not Available [facility] (Centralized Electronic Ordering - All Locations) Patient Can Go To The Location Of Their Choice, 11/10/2023 11:03:20 11/10/1911/10/2023 UREA NITRO GEN, URINE MG/DL urea nitrogen, urine mg/dL 1580.2 mg/dL Not Available [facility] ([facility] - All Locations) Patient Can Go To The Location Of Their Choice, 11/10/2023 11:16:00 11/10/1911/10/2023 PSA SCREE N PSA 1.8 NG/mL (0-4) TEST PERFO RMED USING THE EMANUEL ELECT EMANUEL MILLU MINES CENCE TOTAL PSA ASSAY . PSA VALUE S OBTAI SUNNY WITH OTHER ASSAY METHO DS OR KITS CANNO T BE USED INTER SORTO EABLY . Not Available [facility] (Centralized Electronic Ordering - All Locations) Patient Can Go To The Location Of Their Choice, 11/10/2023 11:20:16 11/10/1911/10/2023 TP/CR RATIO , URINE TP/cr ratio 0.16 (0-0.2 ) Not Available [facility] (Centralized Electronic Ordering - All Locations) Patient Can Go To The Location Of Their Choice, 11/10/2023 11:29:49 11/10/19 24 11/10/2023 TP/CR RATIO , URINE urine protein 21 mg/dL The urine micro album in test is desig sunny to monit or renal funct ion. When scree tea for Bence Oglesby prote inuri a, urine elect ropho resis is recom serg d. Not Available [facility] (Centralized Electronic Ordering - All Locations) Patient Can Go To The Location Of Their Choice, 11/10/2023 11:29:49 11/10/1911/10/2023 TP/CR RATIO , URINE urine creat 126.5 mg/dL Not Available [facility] ([facility] Ordering - All Locations) Patient Can Go To The Location Of Their Choice, 11/10/2023 11:29:49 11/10/1911/10/2023 POTAS SIUM, URINE MMOL/ L potassium, urine mmol/L 27.0 mmol/ L Not Available [facility] (Centralized Electronic Ordering - All Locations) Patient Can Go To The Location Of Their Choice, 11/10/2023 11:29:51 11/10/1911/10/2023 URINA RY MICRO ALBUM IN micro-albumi n 40.0 mg/L (<20) high The urine micro album in test is desig sunny to monit or renal funct ion. When scree tea for Bence Oglesby prote inuri a, urine elect ropho resis is recom serg d. Not Available [facility] (Centralized Electronic Ordering - All Locations) Patient Can Go To The Location Of Their Choice, 11/10/2023 11:29:53 11/10/1911/10/2023 URINA RY MICRO ALBUM IN malb/creat ratio 31.4 mg/gm (0-20) high Not Available [facility] ([facility] Ordering - All Locations) Patient Can Go To The Location Of Their Choice, 11/10/2023 11:29:53 11/10/1911/10/2023 URINA RY MICRO ALBUM IN urine creat for micro albumin 126.5 mg/dL Not Available [facility] ([facility] Ordering - All Locations) Patient Can Go To The Location Of Their Choice, 11/10/2023 11:29:53 11/10/1911/10/2023 FREE T4 free T4 1.07 NG/dL (0.70- 1.80) Not Available [facility] (Centralized Electronic Ordering - All Locations) Patient Can Go To The Location Of Their Choice, 11/10/2023 11:34:57 11/10/1911/10/2023 CHLOR DREW, URINE MMOL/ L chloride, urine mmol/L <20 mmol/ L Not Available [facility] (Centralized Electronic Ordering - All Locations) Patient Can Go To The Location Of Their Choice, 11/10/2023 11:43:21 11/10/1911/10/2023 SODIU M, URINE MMOL/ L sodium, urine mmol/L <20 mmol/ L Not Available [facility] (Centralized Electronic Ordering - All Locations) Patient Can Go To The Location Of Their Choice, 11/10/2023 11:43:22 11/10/1911/10/2023 ANTI- HEPAT ITIS C anti-hepatit is C (neg) normal NEGAT KRISTYN Refer ence range : Negat kristyn This test was perfo rmed on the Abbot t Archi tect immun oassa y syste m. Not Available [facility] (Centralized Electronic Ordering - All Locations) Patient Can Go To The Location Of Their Choice, 11/10/2023 22:54:29 11/10/1911/11/2023 HEMOG LOBIN A1C hemoglobin A1C 5.1 % (4.0-5 .6) MONIT ORING : In known diabe tic patie nts, hemog lobin A1c targe ts shoul d be discu ssed with healt h care provi anastacio. DIAGN OSTIC USE: The Ameri can Diabe saul Assoc iatio n (ADA) and the World Healt h Organ izati on (WHO) recom mend the use of HbA1c to diagn ose diabe saul using a thres hold of 6.5%. Patie nts who have an HbA1c betwe en 5.7% and 6.4% are consi dered at incre ased risk for devel oping diabe saul in the futur sunil JAMIL ON: False ly low HbA1c resul ts may be obser lucita in patie nts with hemol ytic anemi a, homoz ygous forms of abnor mal hemog lobin (e.g. SS, CC, SC), pregn mike, recen t blood loss or hemog lobin F great er than 7%. Fruct osami ne may be used as an alter zully test in these cases . REFER ENCE: ADA: Stand ards of Medic al Care in Diabe saul 2019, The Journ al of Clini lisa and Appli ed Resea rch and Educa tion Volum e 43, Suppl ement 1 Not Available [facility] (Centralized Electronic Ordering - All Locations) Patient Can Go To The Location Of Their Choice, [id number] 11/11/2023 10:03:19 11/10/19 24 11/11/2023 ERYTH ROPOI ETIN erythropoiet in 12.2 Refer ence range : 2.6 to 18.5 Unit: mIU/m L (NOTE ) Beckm an Coult er UniCe l DxI 800 Immun oassa y Syste m Value s obtai sunny with diffe rent assay metho ds or kits canno t be used inter sorto eably . Resul ts canno t be inter prete d as absol lummi evide nce of the prese nce or absen ce of felton nicholson se. Test perfo rmed by [email or web address], [address], [place] [address] Not Available [facility] (Centralized Electronic Ordering - All Locations) Patient Can Go To The Location Of Their Choice, [id number] 11/11/2023 10:07:04 11/10/19 24 11/17/2023 JAK2 V617F MUTAT ION W/INT ERPRE TATIO N jak2 mutation analysis (neg) normal NEGAT KRISTYN NEGAT KRISTYN FOR THE V617F MUTAT ION This ryne sis did NOT ident gay the prese nce of the V617F mutat ion in eithe r the heter ozygo us or homoz ygous state . This mutat ion can be assoc iated with certa in myelo proli ferat kristyn/m yelod yspla stic neopl asms and/o r incre ased throm bophi brian risk. This resul t shoul d be inter prete d in combi natio n with other clini lisa and labor atory findi ngs. The somat ic point mutat ion at codon 617 withi n the JAK2 gene resul ts in a pheny lalan ine subst ituti on for valin e. This mutat ion resul ts in const ituti ve JAK2 activ ity and enhan gabby JAK2- STAT signa ling. DNA extra cted from perip heral blood leuko cytes was ryne zed by real- time PCR using the Kekanto z480. Fluor escen tly label ed probe s were utili zed for allel ic discr imina tion. This assay 's lower limit of detec tion will ident gay a 5.0% popul ation of mutan t allel es in a backg round of wild type allel es. While DNA testi ng is very accur ate, rare diagn ostic error s due to vario us pre- and post- ryne tical varia bles do occur . Refer ences : Rafiq elizalde. 365:1 054-1 061, 2004, Blood . 106: 2162- 2168, 2005, Who Class ifica tion of Tumou rs of Haema topoi etic and Lymph oid Tissu e. 4th ed., World Healt h Organ izati on, 2007. This test was devel oped and it's perfo rmanc e tony cteri stics deter mined by [facility] Labor atori es. It has not been clear ed or appro lucita by the [place] FDA. The FDA has deter mined that such clear ance is not neces garret. This labor atory is certi fied under CLIA 88 as quali fied to perfo rm high compl exity clini lisa labor atory testi ng. Not Available [facility] (Centralized Electronic Ordering - All Locations) Patient Can Go To The Location Of Their Choice, [id number] 11/17/2023 15:15:57 11/10/19 24 11/17/2023 JAK2 V617F MUTAT ION W/INT ERPRE TATIO N jak2 pathologist INTERP RETED BY FE IN LIV Castillo Not Available [facility] (Centralized Electronic Ordering - All Locations) Patient Can Go To The Location Of Their Choice, [id number] 11/17/2023 15:15:57 11/10/19 24 11/18/2023 JAK2 EXON 12-15 MUTAT ION DETEC TION jak2 E12-15 interpretati on Commen t (NOTE ) NEGAT KRISTYN JAK2 mutat ions were not detec karri in exons 12, 13, 14 and 15. This resul t does not rule out the prese nce of JAK2 mutat ion at a level below the detec tion sensi tivit y of this assay , the prese nce of other mutat ions outsi de the ryne zed regio n of the JAK2 gene, or the prese nce of a myelo proli ferat kristyn or other neopl asm. Resul t must be corre lated with other clini lisa data for the most accur ate diagn osis. Not Available [facility] (Centralized Electronic Ordering - All Locations) Patient Can Go To The Location Of Their Choice, [id number] 11/18/2023 09:06:45 11/10/1911/18/2023 JAK2 EXON 12-15 MUTAT ION DETEC TION jak2 E12-15 background Commen t (NOTE ) Molec ular testi ng of blood or bone marro w is usefu l in the evalu ation of suspe cted myelo proli ferat kristyn neopl asms (MPN) . This test will asses s mutat ions in JAK2 exons 12, 13, 14, and 15. The JAK2 (Taurus s kinas e 2) gene encod es for a non-r ecept or prote in tyros ine kinas e that activ ates cytok ine and growt h facto r signa ling. The V617F (c.18 49 G>T) mutat ion resul ts in const ituti ve activ ation of JAK2 and downs tream Stat5 and Erk signa ling. The V617F mutat ion is obser lucita in appro ximat evelyn 95% of polyc ythem ia vera (PV), 60% of essen tial throm bocyt hemia (ET) and prima ry myelo fibro sis (PMF) . It is also infre quent ly prese nt (3-5% ) in myelo dyspl astic syndr ome, chron ic myelo monoc ytic leuke dov, and other atypi lisa chron ic myelo id disor ders. A small perce ntage of JAK2 mutat ion posit kristyn patie nts (3.3% ) conta in other non-V 617F mutat ions withi n exons 12 to 15. In parti cular , mutat ions in exon 12 of JAK2 have been descr ibed in appro ximat evelyn 3% of patie nts with PV. JAK2 mutat ion allel e burde n corre lates with clini lisa pheno type, with low level s of mutan t allel e tony cteri zed by throm bocyt osis, inter media te level s with eryth rocyt osis, and high mutan t allel e burde n corre latin g with enhan gabby myelo poies is of the BM, leuko cytos is, incre asing splee n size, and circu latin g CD34- posit kristyn cells . Limit ation s This assay has a sensi tivit y of appro ximat evelyn 1% VAF for JAK2 V617F , and 2.5% VAF for other mutat ions in JAK2 exons 12 to 15. Test perfo rmed by [facility] [place], [address], [place] [address] Not Available [facility] (Centralized Electronic Ordering - All Locations) Patient Can Go To The Location Of Their Choice, [id number] 11/18/2023 09:06:45 11/10/19 24 11/18/2023 JAK2 EXON 12-15 MUTAT ION DETEC TION jak2 E12-15 method Commen t (NOTE ) This test was devel oped and its perfo rmanc e tony cteri stics deter mined by [facility]. It has not been clear ed or appro lucita by the Food and Drug Admin istra tion. Ampli con-b ased next gener ation seque ncing . Not Available [facility] (Centralized Electronic Ordering - All Locations) Patient Can Go To The Location Of Their Choice, [id number] 11/18/2023 09:06:45 11/10/19 24 11/18/2023 JAK2 EXON 12-15 MUTAT ION DETEC TION jak2 E12-15 references Commen t (NOTE ) Mariangel devlin N, Gerson wright Y, Ann ca H, Blaise eid S. Detec tion of mutat ions in JAK2 exons 12-15 by Lucio sandoval . Int J Lab Hemat ol. 2016 Nov;3 8(1): 34-41 . doi: 10.11 11/ij lh.12 425. Epub 2014Jun 28. PMID: 21035 084. Karyn DA, Adin A, Leo lopez R, Nithin portillo J, Joanne henry MJ, Lisa Campuzano MM, Néstor mendoza CD, Radha mitchell M, Arianne ulloa JW. The 2016 donn ion to the [facility] Organ izati on class ifica tion of myelo id neopl asms and acute leuke dov. Blood . 2016 March 05;12 7(20) :5551 -405. doi: 10.11 /bl ood-2 016-0 3-643 544. Epub 2015Jan 26. PMID: 30671 254. Kerrie W, Terri lopez H, Rod X, Micheal CH, Rod MUNOZ, Jensen butler S, Demetrio wilcox M. Mutat ion profi le of JAK2 trans cript s in patie nts with chron ic myelo proli ferat kristyn neopl asias . J Mol Diagn . 2008; 1(1): 49-53 .doi: 10.23 53/jm oldx. 2009. 59118 4. Epub 2007Sep 28. PMID: 27044 595; PMCID : PMC26 51422 . NCCN Clini lisa Pract ice Guide lines in Oncol ogy (NCCN Guide lines ) Myelo proli ferat kristyn Neopl asms Versi on 2 - Augus t 2021. Avelina CHAVEZ, theodore bullock. WHO class ifica tion of Tumou rs of Haema topoi etic and Lymph oid Tissu es. 4th edn. Blanco Ayoub e: Inter natio nal Agenc y for Resea [facility] on Cance r; 2017. Ester Jacobsen. Prima ry myelo fibro sis: 2020 updat e on diagn osis, risk- strat ifica tion and manag ement . Am J Hemat ol. 2020;9 6(1): 145-1 62. doi: 10.10 02/aj h.260 50. Epub 2019Sep 18. PMID: Not Available [facility] (Centralized Electronic Ordering - All Locations) Patient Can Go To The Location Of Their Choice, 11/18/2023 09:06:45 11/10/1911/18/2023 JAK2 EXON 12-15 MUTAT ION DETEC TION jak2 E12-15 references [id number] 49. Kaci Aguilera, Delphine Bullock. Mimi ic basis and molec ular patho physi ology of class ical myelo proli ferat kristyn neopl asms. Blood . 2016Nov 26;129 (6):6 67-67 9. doi: 10.11 / ood-2 016-1 0-695 940. Epub 2015Oct 13. PMID: 51073 029. Not Available [facility] (Centralized Electronic Ordering - All Locations) Patient Can Go To The Location Of Their Choice, 11/18/2023 09:06:45 11/10/1911/18/2023 JAK2 EXON 12-15 MUTAT ION DETEC TION jak2 E12-15 director review Jessy elizalde (NOTE ) Techn ical Zaleski nent perfo rmed at [facility] [place] Ferdinand ceron al Zaleski nent perfo rmed by: Fanny Garcia, PhD, FAC Dire tor, Molec ular Oncol ogy [address] [place] [address] [phone] Not Available [facility] (Centralized Electronic Ordering - All Locations) Patient Can Go To The Location Of Their Choice, 11/18/2023 09:06:45 11/17/1911/18/2024 UA/M W/RFL X CULTU RE, COMP specific gravity 1.022 1.005- 1.030 normal Not Available [facility] ([facility]) [address], [place], [address], 11/18/2024 08:08:45 11/17/19 25 11/18/2024 UA/M W/RFL X CULTU RE, COMP pH 6.0 5.0-7. 5 normal Not Available [facility] ([facility]) [address] [facility], [place], [address], 11/18/2024 08:08:45 11/17/19 25 11/18/2024 UA/M W/RFL X CULTU RE, COMP urine-color Yellow yellow Not Available [facility] ([facility]) [address] [facility], [place], [address], 11/18/2024 08:08:45 11/17/19 25 11/18/2024 UA/M W/RFL X CULTU RE, COMP appearance Clear clear Not Available [facility] ([facility]) [address] [facility], [place], [address], 11/18/2024 08:08:45 11/17/19 25 11/18/2024 UA/M W/RFL X CULTU RE, COMP WBC esterase Negati ve negati ve Not Available [facility] ([facility]) [address] [place], [address], 11/18/2024 08:08:45 11/17/19 25 11/18/2024 UA/M W/RFL X CULTU RE, COMP protein 1+ negati ve/tra ce abnormal Not Available [facility] ([facility]) [address] [place], [address], 11/18/2024 08:08:45 11/17/19 25 11/18/2024 UA/M W/RFL X CULTU RE, COMP glucose Negati ve negati ve Not Available [facility] ([facility]) [address] [place], [address], 11/18/2024 08:08:45 11/17/19 25 11/18/2024 UA/M W/RFL X CULTU RE, COMP ketones Negati ve negati ve Not Available [facility] ([facility]) [address] [facility], [place], [address], 11/18/2024 08:08:45 11/17/19 25 11/18/2024 UA/M W/RFL X CULTU RE, COMP occult blood Negati ve negati ve Not Available [facility] ([facility]) [address] [facility], [place], [address], 11/18/2024 08:08:45 11/17/19 25 11/18/2024 UA/M W/RFL X CULTU RE, COMP bilirubin Negati ve negati ve Not Available [facility] ([facility]) [address] [facility], [place], [address], 11/18/2024 08:08:45 11/17/19 25 11/18/2024 UA/M W/RFL X CULTU RE, COMP urobilinogen ,semi-qn 0.2 mg/dL 0.2-1. 0 normal Not Available [facility] ([facility]) [address] [facility], [place], [address], 11/18/2024 08:08:45 11/17/19 25 11/18/2024 UA/M W/RFL X CULTU RE, COMP nitrite, urine Negati ve negati ve Not Available [facility] ([facility]) [address] [place], [address], 11/18/2024 08:08:45 11/17/19 25 11/18/2024 UA/M W/RFL X CULTU RE, COMP microscopic examination See below: Micro scopi c was indic ated and was perfo rmed. Not Available [facility] ([facility]) [address] [facility], [place], [address], 11/18/2024 08:08:45 11/17/19 25 11/18/2024 UA/M W/RFL X CULTU RE, COMP WBC None seen /hpf 0 - 5 Not Available [facility] ([facility]) [address], [place], [address], 11/18/2024 08:08:45 11/17/19 25 11/18/2024 UA/M W/RFL X CULTU RE, COMP RBC None seen /hpf 0 - 2 Not Available [facility] ([facility]) [address] [facility], [place], [address], 11/18/2024 08:08:45 11/17/19 25 11/18/2024 UA/M W/RFL X CULTU RE, COMP epithelial cells (non renal) None seen /hpf 0 - 10 Not Available [facility] (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) [address] [facility], [place], [address], 11/18/2024 08:08:45 11/17/19 25 11/18/2024 UA/M W/RFL X CULTU RE, COMP casts None seen /lpf none seen Not Available [facility] (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) [address] [facility], [place], [address], 11/18/2024 08:08:45 11/17/19 25 11/18/2024 UA/M W/RFL X CULTU RE, COMP bacteria None seen none seen/f ew Not Available [facility] (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) [address] [facility] [place], [address], 11/18/2024 08:08:45 11/17/19 25 11/18/2024 UA/M W/RFL X CULTU RE, COMP urinalysis reflex Commen t This speci men will not refle x to a Urine Cultu re. Not Available [facility] ([facility]) [address] [place], [address], 11/18/2024 08:08:45 11/17/19 25 11/17/2024 BASIC METAB OLIC PANEL (8) glucose 93 mg/dL 70-99 normal Not Available [facility] ([facility]) [address] [place], [address], 11/18/2024 08:08:46 11/17/19 25 11/17/2024 BASIC METAB OLIC PANEL (8) BUN 36 mg/dL 6-24 above high normal Not Available [facility] ([facility]) [address] [place], [address], 11/18/2024 08:08:46 11/17/19 25 11/17/2024 BASIC METAB OLIC PANEL (8) creatinine 1.53 mg/dL 0.76-1 .27 above high normal Not Available [facility] ([facility]) [address] [place], [address], 11/18/2024 08:08:46 11/17/19 25 11/17/2024 BASIC METAB OLIC PANEL (8) eGFR 53 mL/mi n/1.7 3 >59 below low normal Not Available [facility] ([facility]) [address] [place], [address], 11/18/2024 08:08:46 11/17/19 25 11/17/2024 BASIC METAB OLIC PANEL (8) BUN/creatini ne ratio 24 9-20 above high normal Not Available [facility] ([facility]) [address] [place], [address], 11/18/2024 08:08:46 11/17/19 25 11/17/2024 BASIC METAB OLIC PANEL (8) sodium 142 mmol/ L 134-14 4 normal Not Available [facility] ([facility]) [address] [facility] [place], [address], 11/18/2024 08:08:46 11/17/19 25 11/17/2024 BASIC METAB OLIC PANEL (8) potassium 5.2 mmol/ L 3.5-5. 2 normal Not Available [facility] ([facility]) [address] [facility] [place], [address], 11/18/2024 08:08:46 11/17/19 25 11/17/2024 BASIC METAB OLIC PANEL (8) chloride 105 mmol/ L 96-106 normal Not Available [facility] ([facility]) [address] [facility] [place], [address], 11/18/2024 08:08:46 11/17/19 25 11/17/2024 BASIC METAB OLIC PANEL (8) carbon dioxide, total 22 mmol/ L 20-29 normal Not Available [facility] ([facility]) [address] [facility] [place], [address], 11/18/2024 08:08:46 11/17/19 25 11/17/2024 BASIC METAB OLIC PANEL (8) calcium 9.3 mg/dL 8.7-10 .2 normal Not Available [facility] ([facility]) [address] [facility] [place], [address], 11/18/2024 08:08:46 11/17/19 25 11/17/2024 PSA TOTAL (REFL EX TO FREE) reflex criteria Commen t The perce nt free PSA is perfo rmed on a refle x basis only when the total PSA is betwe en 4.0 and 10.0 ng/mL . Not Available [facility] ([facility]) [address] [place], [address], 11/18/2024 08:08:47 11/17/1911/18/2024 PSA TOTAL (REFL EX TO FREE) prostate specific Ag 1.5 NG/mL 0.0-4. 0 normal Emanuel ECLIA metho dolog y. Accor ding to the Ameri can Urolo gical Assoc iatio n, Serum PSA shoul d decre ase and remai n at undet ectab le level s after radic al prost atect kavya. The AUA defin es bioch emica l recur rence as an initi al PSA value 0.2 ng/mL or great er follo wed by a subse quent confi rmato ry PSA value 0.2 ng/mL or great er. Value s obtai sunny with diffe rent assay metho ds or kits canno t be used inter sorto eably . Resul ts canno t be inter prete d as absol lummi evide nce of the prese nce or absen ce of aspirus [facility] nelsy roman se. Not Available [facility] ([facility]) [address] [facility], [place], [address], 11/18/2024 08:08:47 11/17/1911/18/2024 TESTO STERO NE testosterone 912 NG/dL 264-91 6 normal Adult male refer ence inter vane is based on a popul ation of healt hy nonob michael males (BMI <30) betwe en 19 and 39 years old. Esther skaggs, et.al . JCEM 2017, 102;1 161-1 173. PMID: 49451 103. Not Available [facility] ([facility]) [address] [facility], [place], [address], 11/18/2024 08:08:47 11/17/1911/18/2024 ESTRA DIOL estradiol <5.0 pg/mL 7.6-42 .6 below low normal Emanuel ECLIA metho dolog y Not Available [facility] ([facility]) [address] [facility], [place], [address], 11/18/2024 08:08:48 11/17/19 25 11/17/2024 HEMOG LOBIN A1C hemoglobin A1C 5.3 % 4.8-5. 6 normal Predi abete s: 5.7 - 6.4 Diabe saul: >6.4 Glyce rosemarie contr ol for adult s with diabe saul: <7.0 Not Available [facility] ([facility]) [address] [place], [address], 11/18/2024 08:08:49 11/17/19 25 11/17/2024 ALBUM IN albumin 4.1 g/dL 3.8-4. 9 normal Not Available [facility] ([facility]) [address] [place], [address], 11/18/2024 08:08:50 11/17/19 25 11/18/2024 SEX HORM LEVAR NG GLOB, SERUM sex horm binding glob, serum 5.1 nmol/ L 19.3-7 6.4 below low normal Not Available [facility] ([facility]) [address] [place], [address], 11/18/2024 08:08:51 11/30/19 25 11/30/2024 BASIC METAB OLIC PANEL (8) glucose 90 mg/dL 70-99 normal Not Available [facility] ([facility]) [address] [place], [address], 12/03/2024 20:05:51 11/30/19 25 11/30/2024 BASIC METAB OLIC PANEL (8) BUN 40 mg/dL 6-24 above high normal Not Available [facility] ([facility]) [address] [place], [address], 12/03/2024 20:05:51 11/30/19 25 11/30/2024 BASIC METAB OLIC PANEL (8) creatinine 1.44 mg/dL 0.76-1 .27 above high normal Not Available [facility] ([facility]) [address] [place], [address], 12/03/2024 20:05:51 11/30/19 25 11/30/2024 BASIC METAB OLIC PANEL (8) eGFR 57 mL/mi n/1.7 3 >59 below low normal Not Available [facility] ([facility]) [address] [facility] [place], [address], 12/03/2024 20:05:51 11/30/19 25 11/30/2024 BASIC METAB OLIC PANEL (8) BUN/creatini ne ratio 28 9-20 above high normal Not Available [facility] ([facility]) [address] [facility] [place], [address], 12/03/2024 20:05:51 11/30/19 25 11/30/2024 BASIC METAB OLIC PANEL (8) sodium 142 mmol/ L 134-14 4 normal Not Available [facility] ([facility]) [address] [place], [address], 12/03/2024 20:05:51 11/30/19 25 11/30/2024 BASIC METAB OLIC PANEL (8) potassium 5.0 mmol/ L 3.5-5. 2 normal Not Available [facility] ([facility]) [address] [place], [address], 12/03/2024 20:05:51 11/30/19 25 11/30/2024 BASIC METAB OLIC PANEL (8) chloride 104 mmol/ L 96-106 normal Not Available [facility] ([facility]) [address] [place], [address], 12/03/2024 20:05:51 11/30/19 25 11/30/2024 BASIC METAB OLIC PANEL (8) carbon dioxide, total 23 mmol/ L 20-29 normal Not Available [facility] ([facility]) [address] [place], [address], 12/03/2024 20:05:51 11/30/19 25 11/30/2024 BASIC METAB OLIC PANEL (8) calcium 9.6 mg/dL 8.7-10 .2 normal Not Available [facility] ([facility]) [address] [place], [address], 12/03/2024 20:05:51 11/30/19 25 12/01/2024 PROT+ CREAT U (RAND OM) creatinine, urine 100.1 mg/dL not estab. normal Not Available [facility] ([facility]) [address] [place], [address], 12/03/2024 20:05:52 11/30/19 25 12/01/2024 PROT+ CREAT U (RAND OM) protein,tota l,urine 20.7 mg/dL not estab. normal Not Available [facility] ([facility]) [address] [place], [address], 12/03/2024 20:05:52 11/30/19 25 12/01/2024 PROT+ CREAT U (RAND OM) protein/crea t ratio 207 mg/g_ creat 0-200 above high normal Not Available [facility] ([facility]) [address] [place], [address], 12/03/2024 20:05:52 11/30/19 25 12/01/2024 ALBUM IN/CR EATIN INE RATIO ,URIN E albumin, urine 30.3 ug/mL not estab. Not Available [facility] ([facility]) [address] [place], [address], 12/03/2024 20:05:52 11/30/19 25 12/01/2024 ALBUM IN/CR EATIN INE RATIO ,URIN E alb/creat ratio 30 mg/g_ creat 0-29 above high normal Elena l: 0 - 29 Moder ately incre ased: 30 - 300 Sever evelyn incre ased: >300 Not Available [facility] ([facility]) [address] [place], [address], 12/03/2024 20:05:52 11/30/19 25 12/01/2024 NA U+CL U+K U sodium, urine 36 mmol/ L not estab. Kasey ified by repea t ryne sis Not Available [facility] ([facility]) [address] [place], [address], 12/03/2024 20:05:53 11/30/19 25 12/01/2024 NA U+CL U+K U potassium, urine 45.7 mmol/ L not estab. Not Available [facility] ([facility]) [address] [place], [address], 12/03/2024 20:05:53 11/30/19 25 12/01/2024 NA U+CL U+K U chloride, urine 52 mmol/ L not estab. Kasey ified by repea t ryne sis Not Available [facility] ([facility]) [address] [place], [address], 12/03/2024 20:05:53 11/30/19 25 12/03/2024 CYSTA TIN C WITH EGFR cystatin C 1.01 mg/L 0.67-1 .14 Not Available [facility] ([facility]) [address] [place], [address], 12/03/2024 20:05:53 11/30/19 25 12/03/2024 CYSTA TIN C WITH EGFR eGFR 78 mL/mi n/1.7 3 >59 Not Available [facility] ([facility]) [address] [place], [address], 12/03/2024 20:05:53 11/30/19 25 12/03/2024 OSMOL ALITY osmolality 301 mosmo l/kg 275-29 5 above high normal Not Available [facility] ([facility]) [address] [place], [address], 12/03/2024 20:05:54 11/30/19 25 12/02/2024 OSMOL ALITY , URINE osmolality, urine 831 mosmo l/kg 24 hr : 300 - 900 Rando m: 50 - 1400 After 12hr fluid restr ictio n: >850 Not Available [facility] ([facility]) [address] [facility], [place], [address], 12/03/2024 20:05:55 11/30/19 25 12/01/2024 UREA NITRO GEN, U urea nitrogen, U 1524 mg/dL not estab. Not Available [facility] ([facility]) [address] [facility], [place], [address], 12/03/2024 20:05:55 10/21/19 24 08/06/2004 sleep study , diagn ostic (PROC ) No observ ation record ed. [email or web address] Not Available 10/22 08:48:16 11/15/19 24 11/15/2023 US, abdom en, limit ed US RUQ Reason : Right upper quadra nt pain. COMPAR ELENA: None. FINDIN GS: Liver: Normal in size and echote xture. No focal lesion . Smooth hepati c contou r. Main portal vein patent with normal hepato petal direct ion of flow. Gallbl adder: No gallst ones. Normal wall thickn ess. No perich olecys tic fluid. Negati ve Franklin sign. Biliar y Tree: No intrah epatic or extrah epatic bile duct dilati on is identi fied. Common duct measur es: 0.6 cm. Pancre as: Obscur ed by overly ing bowel gas. Right kidney : 12.8 cm in length . Normal parenc hymal echote xture and thickn ess. Mild pelvie ctasis withou t tabitha hydron ephros is. No stone or mass. IMPRES ADAMS: No sonogr aphic eviden ce of cholel ithias is or acute cholec ystiti s. Mild right pelvie ctasis withou t tabitha hydron ephros is. WSN: [id number] Orderi ng Physic alma: June Billy Dictat ed By: OliveYue gonsalves ra, MD Dictat ed Date/T abraham: 8:36 am Review ed By: Yue Khan ra, MD Signed By: Yue Khan ra, MD Signed Date/T abraham: 8:36 am Transc ribed By: DUC Transc ribed Date/T abraham: 8:14 am Patien t Class: Outpat ient [facility] (Outpt Imaging) [address], [place], [address], 11/15/2023 17:02:23 11/15/19 24 11/15/2023 US, abdom en, limit ed No observ ation record ed. [email or web address] Not Available 11/15 11:59:14 11/23/19 25 11/22/2024 US, retro perit oneum , compl ete US Renal Bladde r Reason : Freque nt noctur nal urinat ion. COMPAR ELENA: Right upper quadra nt ultras ound 024. FINDIN GS: Right kidney : 13.2 cm in length . Fullne ss to the renal collec ting system withou t hydron ephros is. Normal parenc hymal thickn ess and echote xture. No stones . No suspic ious mass. Left kidney : 13.6 cm in length . No hydron ephros is. Normal parenc hymal thickn ess and echote xture. No stones . No suspic ious mass. Few simple parape lvic cysts, the larges t measur ing 1.6 x 2.7 x 1.9 cm. Urinar y bladde r: Normal morpho logy. No stone, mass, wall thicke tea or debris . Prevoi d volume : 277.8 cc. Postvo id volume : 37.0 cc. Prosta te: 4.4 x 3.6 x 4.6 cm, volume 38.2 cc. IMPRES ADAMS: Normal urinar y bladde r. Postvo id residu al of 37 cc. Mild prosta tomega ly with prosta te volume of approx imatel y 38 cc. No sonogr aphic eviden ce of nephro lithia sis or hydron ephros is. Left parape lvic cysts measur ing up to 2.7 cm. WSN: [id number] Orderi ng Physic alma: June Billy Dictat ed By: Juan Pablo Love MD Dictat ed Date/T abraham: 9:13 am Review ed By: Juan Pablo Love MD Signed By: Juan Pablo Love MD Signed Date/T abraham: 9:13 am Transc ribed By: CSNanci Transc ribed Date/T abraham: 8:33 am Patien t Class: Outpat ient [facility] (Outpt Imaging) [address] [facility], [place], [address], 11/23/2024 14:16:45 11/23/1911/22/2024 US, Ildefonso chris ation record ed. [email or web address] [facility] (Ultrasound) [address] [place], [address], 11/27/2024 16:11:23 Result Notes None recorded. Problems Name Problem SNOMED Code Status Onset Date Resolution Date Notes Provider Name and Address Organization Details Recorded Time Obstructive sleep apnea syndrome 94812768 Active 2023 Mirna Billy MD [address] [facility] [address], [place], [address], [facility] 07:27:21 Gastroesoph ageal reflux disease without esophagitis 234180472 Completed 202310/26/2023 Mirna Billy MD [address] [facility] [address], [place], [address], [facility] 4 10:38:36 Bipolar disorder 08208152 Completed 202310/26/2023 Mirna Billy MD [address] [facility] [address], [place], [address], [facility] 4 10:38:19 Venous varices 027181691 Active 2023 Mirna Billy MD [address], [place], [address], [facility] [place] 4 07:31:46 Right bundle branch block 97497499 Active 2023 Mirna Billy MD [address], [place], [address], [facility] 4 07:32:04 Obesity 645910078 Active 2023 Mirna Billy MD [address], [place], [address], [facility] 4 07:32:14 Body mass index 30+ - obesity 693609827 Active 2023 Mirna Billy MD [address], [place], [address], [facility] 4 07:32:22 Essential hypertensio n 84898698 Completed 202310/26/2023 Mirna Billy MD [address], [place], [address], [facility] 4 10:38:51 Hyperlipide dov 20611904 Active 2023 Mirna Billy MD [address], [place], [address], [facility] 4 07:32:40 Testicular hypofunctio n 741036458 Active 2023 Mirna Billy MD [address], [place], [address], [facility] 4 07:32:54 Umbilical hernia 054571220 Active 2023 Mirna Billy MD [address], [place], [address], [facility] 4 07:33:04 Factor V Leiden mutation 179613076 Active KERRIE [place], [facility] 4 10:12:05 Congestive heart failure 33539039 Active 2023 Mirna Billy MD [address], [place], [address], [facility] 4 10:36:56 Atrial fibrillatio n 24720062 Active 2023 Mirna Billy MD [address], [place], [address], [facility] 4 10:37:08 History of pulmonary embolus 324237881 Active 2023 Mirna Billy MD [address], [place], [address], [facility] [place] 4 10:38:04 Cardiomyoto my Active 2023 Mirna Billy MD [address], [place], [address], [facility] 4 10:38:15 Mixed anxiety and depressive disorder 628117791 Active 2023 Mirna Billy MD [address], [place], [address], [facility] 4 10:39:40 Generalized anxiety disorder 66254907 Active 2023 Mirna Billy MD [address], [place], [address], [facility] 4 14:09:02 Major depressive disorder 654776613 Active 2023 Mirna Billy MD [address], [place], [address], [facility] 4 14:09:18 Chronic kidney disease stage 2 555944439 Active 2023 Mirna Billy MD [address], [place], [address], [facility] 4 17:09:44 Herpes labialis 7919304 Active 2023 Mirna Billy MD [address] [facility] [address], [place], [address], [facility] 4 16:23:00 Dependence on continuous positive airway pressure ventilation 205664883 Active 2024 Mirna Billy MD [address] [facility] [address], [place], [address], [facility] 5 09:21:14 Problem Notes None recorded. Procedures Surgical History Date Name Laterality Status Provider Name and Address Organization Details Recorded Time 08/06/20 polysomnography completed Helen Marmolejo [facility] 10/22/2023 08:47:17 primary repair of umbilical hernia completed Gilma knox [place] [facility] 10/26/2023 10:18:07 lumbar spinal fusion completed Gilma knox [place] [facility] 10/26/2023 10:18:24 surgical procedure on cervical spine completed Gilma knox [place] [facility] 10/26/2023 10:18:33 Imaging Results Imaging Date Name Status LastModified by Organiz ation Details LastModified Time 08/06/2004 sleep study, diagnostic (PROC) completed [email or web address] Information not available 10/22/2023 08:48:16 11/15/2023 US, abdomen, limited completed [facility] (Outpt Imaging) [address] [place], [address], 11/15/2023 17:02:23 11/15/2023 US, abdomen, limited completed [email or web address] Information not available 11/15/2023 11:59:14 11/22/2024 US, retroperitoneum , complete completed [facility] (Outpt Imaging) [address] [place], [address], 11/23/2024 14:16:45 11/22/2024 US, kidney completed [email or web address] [facility] (Ultrasound) [address] [facility], [place], [address], 11/27/2024 16:11:23 Procedure Notes None recorded. Medical Equipment None Reported. Allergies No known drug allergies Medications Name Sig Start Date Stop Date Status Note LastModified by Organization Details LastModified Time quetiapine 25 mg tablet TAKE 1 TABLET BY MOUTH 1 TIME A DAY 10/26 completed Not Available Not Available Not Available furosemide 40 mg tablet TAKE 1 TABLET BY MOUTH DAILY 01/05 completed Not Available Not Available Not Available venlafaxin e ER 75 mg capsule,ex tended release 24 hr TAKE 1 CAPSULE BY MOUTH 1 TIME A DAY 10/26 completed Not Available Not Available Not Available tizanidine 2 mg tablet TAKE 1 TABLET BY MOUTH EVERY 8 HOURS FOR 14 DAYS NEEDED FOR MUSCLE SPASM 10/26 completed Not Available Not Available Not Available trazodone 50 mg tablet TAKE UP TO 3 TABLETS BY MOUTH EVERY NIGHT AT BEDTIME NEEDED FOR INSOMNIA active Not Available Not Available No t Available ibuprofen 800 mg tablet TAKE 1 TABLET BY MOUTH THREE TIMES DAILY WITH FOOD 10/26 completed Not Available Not Available Not Available tizanidine 4 mg tablet TAKE 1 TABLET BY MOUTH THREE TIMES DAILY 10/26 completed Not Available Not Available Not Available amiodarone 200 mg tablet TAKE 1 TABLET BY MOUTH DAILY 11/14 completed Not Available Not Available Not Available metoprolol succinate ER 50 mg tablet,ext ended release 24 hr TAKE 1 TABLET BY MOUTH DAILY 10/26 completed Not Available Not Available Not Available valacyclov ir 1 gram tablet TAKE 2 TABLETS BY MOUTH TWICE DAILY FOR 1 DAY active NEEDED Not Available Not Available Not Available hydrocodon e 5 mg-acetami nophen 325 mg tablet TAKE 2 TABLETS BY MOUTH EVERY 6 HOURS FOR 7 DAYS NEEDED FOR SEVERE PAIN. NOT TO EXCEED 8 TABLETS DAILY 10/26 completed Not Available Not Available Not Available metoprolol succinate ER 200 mg tablet,ext ended release 24 hr TAKE 1 TABLET BY MOUTH DAILY active Not Available Not Available No t Available venlafaxin e 25 mg tablet TAKE 1/2 TABLET BY MOUTH DAILY 11/14 completed Not Available Not Available Not Available cephalexin 250 mg tablet TAKE 1 TABLET BY MOUTH FOUR TIMES DAILY. START TAKING AFTER SURGERY AND. CONTINUE UNTIL DRAINS REMOVED 10/26 completed Not Available Not Available Not Available metoprolol succinate ER 100 mg tablet,ext ended release 24 hr TAKE 1 TABLET BY MOUTH DAILY 01/05 completed Not Available Not Available Not Available digoxin 250 mcg (0.25 mg) tablet TAKE 1 TABLET BY MOUTH DAILY 10/26 completed Not Available Not Available Not Available minoxidil 2.5 mg tablet TAKE 1 TABLET BY MOUTH ONCE DAILY 11/14 completed Not Available Not Available Not Available doxycyclin e monohydrat e 100 mg tablet TAKE 1 TABLET BY MOUTH TWICE DAILY 10/26 completed Not Available Not Available Not Available acetaminop hen 500 mg tablet TAKE 2 TABLETS BY MOUTH THREE TIMES DAILY NEEDED FOR PAIN 11/14 completed Not Available Not Available Not Available propranolo l 10 mg tablet TAKE 1 TABLET BY MOUTH EVERY DAY 10/26 completed Not Available Not Available Not Available alprazolam 0.25 mg tablet TAKE 1 TABLET BY MOUTH 1 TIME A DAY NEEDED 10/26 completed Not Available Not Available Not Available cephalexin 500 mg capsule TAKE 1 CAPSULE BY MOUTH EVERY 12 HOURS FOR 7 DAYS 10/26 completed Not Available Not Available Not Available venlafaxin e 37.5 mg tablet TAKE 1 TABLET BY MOUTH DAILY 11/14 completed Not Available Not Available Not Available trazodone 150 mg tablet TAKE 2 TABLETS BY MOUTH 1 TIME A DAY 10/26 completed Not Available Not Available Not Available venlafaxin e 50 mg tablet TAKE 1 TABLET BY MOUTH EVERY DAY 10/26 completed Not Available Not Available Not Available bisacodyl 5 mg tablet,del ayed release TAKE 4 TABLETS BY MOUTH DIRECTED 11/14 completed Not Available Not Available Not Available digoxin 125 mcg (0.125 mg) tablet TAKE 1 TABLET BY MOUTH DAILY 11/14 completed Not Available Not Available Not Available metoprolol succinate ER 25 mg tablet,ext ended release 24 hr TAKE 1 TABLET BY MOUTH DAILY 01/05 completed Not Available Not Available Not Available lorazepam 1 mg tablet TAKE 1 TABLET BY MOUTH AT BEDTIME 10/26 completed Not Available Not Available Not Available diazepam 10 mg tablet TAKE 1 TABLET BY MOUTH AT BEDTIME NEEDED FOR SLEEP 10/26 completed Not Available Not Available Not Available testostero ne cypionate 200 mg/mL intramuscu lar oil Inject 0.5 mL twice a week by intramus cular route. active Not Available Not Available No t Available methylpred nisolone 4 mg tablets in a dose pack FOLLOW PACKAGE DIRECTIO NS 10/26 completed Not Available Not Available Not Available amoxicilli n 875 mg-potassi um clavulanat e 125 mg tablet TAKE 1 TABLET BY MOUTH TWO TIMES A DAY FOR 1 DAY 10/26 completed Not Available Not Available Not Available oxycodone 5 mg tablet TAKE 1 TABLET BY MOUTH EVERY 6 HOURS NEEDED FOR PAIN 11/14 completed Not Available Not Available Not Available escitalopr am 10 mg tablet TAKE 1 TABLET BY MOUTH 1 TIME A DAY 11/14 completed Not Available Not Available Not Available eplerenone 25 mg tablet TAKE 1 TABLET BY MOUTH EVERY DAY active Not Available Not Available No t Available escitalopr am 5 mg/5 mL oral solution TAKE 4 ML BY MOUTH 1 TIME A DAY active Not Available Not Available No t Available escitalopr am 5 mg tablet TAKE 1 AND 1/2 TABLETS BY MOUTH DAILY 11/14 completed Not Available Not Available Not Available mirtazapin e 7.5 mg tablet TAKE 1 TABLET BY MOUTH 1 TIME A DAY 10/26 completed Not Available Not Available Not Available GaviLyte-G 236 gram-22.74 gram-6.74 gram-5.86 gram oral solution MIX AND DRINK DIRECTED 11/14 completed Not Available Not Available Not Available Eliquis 5 mg tablet TAKE 1 TABLET BY MOUTH TWICE DAILY active Not Available Not Available No t Available Farxiga 10 mg tablet TAKE 1 TABLET BY MOUTH DAILY active Not Available Not Available No t Available Entresto 97 mg-103 mg tablet TAKE 1 TABLET BY MOUTH TWICE DAILY active Not Available Not Available No t Available Entresto 49 mg-51 mg tablet TAKE 1 TABLET BY MOUTH TWICE DAILY 01/05 completed Not Available Not Available Not Available Entresto 24 mg-26 mg tablet TAKE 1 TABLET BY MOUTH TWICE DAILY 01/05 completed Not Available Not Available Not Available Eliquis DVT-PE Treatment 30-Day Starter 5 mg (74 tablets) in dose pack USE DIRECTED ON PACK 10/26 completed Not Available Not Available Not Available Vitals Date Recorded Body height Body mass index (BMI) Body weight Heart rate Oxygen saturation Oxygen saturation in Arterial blood by Pulse oximetry Body temperature Systolic blood pressure Diastolic blood pressure Provider Name and Address Organization Details Last Updated DateTime 4 177.8 cm 30.8 kg/m2 72868.3 6 g 87 /min 98 % 98 % 98.2 [degF] 102 mm[Hg] 58 mm[Hg] Gil[facility] bartlett [facility] 4 10:08:31 Date Recorded Body height Body mass index (BMI) Body weight Oxygen saturation Oxygen saturation in Arterial blood by Pulse oximetry Body temperature Systolic blood pressure Diastolic blood pressure Provider Name and Address Organization Details Last Updated DateTime 4 177.8 cm 31.2 kg/m2 51320.9 8 g 96 % 96 % 98.1 [degF] 110 mm[Hg] 56 mm[Hg] [facility] 4 13:54:16 Date Recorded Body height Body mass index (BMI) Body weight Heart rate Oxygen saturation Oxygen saturation in Arterial blood by Pulse oximetry Body temperature Systolic blood pressure Diastolic blood pressure Systolic blood pressure Diastolic blood pressure Provider Name and Address Organization Details Last Updated DateTime 4 177.8 cm 32.3 kg/m2 734037. 56 g 62 /min 97 % 97 % 97.9 [degF] 84 mm[Hg] 40 mm[Hg] 79 mm[Hg] 40 mm[Hg] Shira bartlett [facility] 4 10:47:56 Date Recorded Body height Body mass index (BMI) Body weight Oxygen saturation Oxygen saturation in Arterial blood by Pulse oximetry Heart rate Body temperature Systolic blood pressure Diastolic blood pressure Provider Name and Address Organization Details Last Updated DateTime 5 177.8 cm 31.7 kg/m2 181787. 91 g 98 % 98 % 71 /min 97.9 [degF] 94 mm[Hg] 58 mm[Hg] Helen Bateman MA [facility] 5 09:08:39 Social History Question Answer Notes LastModified by Organizat ion Details LastModified Time Tobacco Smoking Status Never Smoker KERRIE [place], [facility] 10/26/2023 10:14:37 What Is Your Level Of Alcohol Consumption? None Information not available 10/26/2023 Are You Currently Employed? Yes Information not available 10/26/2023 What Type Of Diet Are You Following? 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 Yes Information not available 10/26/2023 How Often Do You Need To Have Someone Help You When You Read Instructions, Pamphlets, Or Other Written Material From Your Doctor Or Pharmacy? Never Information not available 10/26/2023 Have You Served In The ? No Information not available 10/26/2023 How Many Children Do You Have? 1 Information not available 11/09/2023 Are You Passively Exposed To Smoke? Yes As A Education Adviser Information not available 10/26/2023 Do You Use Any Illicit Or Recreational Drugs? No Information not available 10/26/2023 Do You Or Have You Ever Used Any Other Forms Of Tobacco Or Nicotine? No Information not available 10/26/2023 Sex: Unknown Functional Status Question Answer Note LastModified by Organizat ion Details LastModified Time Are you able to walk? YESWOREST Information not available 10/26/2023 What is your exercise level? Moderate daily; gym (focused on 1 body part each time), treadmill (3 mph at 7 incline) Information not available 10/26/2023 Mental Status None recorded. Family History Nothing Reported Notes:adopted Medical History No medical history recorded. Immunizations Vaccine Type Date Status Note Provider Name and Address Organization Details Recorded Time COVID-19, mRNA, LNP-S, PF, 100 mcg/0.5mL dose or 50 mcg/0.25mL dose 09/10/20 21 completed KERRIE [facility] 11/14/2024 09:03:49 COVID-19, mRNA, LNP-S, PF, 100 mcg/0.5mL dose or 50 mcg/0.25mL dose 11/27/19 21 completed KERRIE [facility] 11/14/2024 09:03:49 COVID-19, mRNA, LNP-S, PF, 100 mcg/0.5mL dose or 50 mcg/0.25mL dose 10/30/19 21 completed KERRIE [facility] 11/14/2024 09:03:49 zoster recombinant 10/27/19 24 completed KERRIE Sweet [facility] 11/14/2024 09:03:49 Pneumococcal conjugate PCV20, polysaccharide [id number] conjugate, adjuvant, PF 10/27/19 24 completed [facility] 11/14/2024 09:03:49 Tdap 10/27/19 24 completed [facility] 11/14/2024 09:03:49 Influenza, split virus, trivalent, preservative 07/28/20 13 completed [facility] 11/14/2024 09:03:49 Influenza, split virus, quadrivalent, PF 10/26/19 24 cancelled patient objection Mirna Billy MD [address], [address], [facility] 10/26/2023 11:28:15 Past Encounters Encounter ID Performer Location Encounter Start Date Encounter Closed Date Diagnosis/Indication Diagnosis SNOMED-CT Code Diagnosis ICD10 Code Diagnosis Note [id number] Mirna Billy MD Main Office [address] [place] [address] 10/26/2023 09:52:48 10/26/2023 11:12:25 Adult health examination 887294374 Z00.00 Patient was counseled on healthy diet, exercise and nutrition due to Body mass index is 30.8 kg/m? ? ?. Last PSADate:Re sult:Plan: ordered on T. Last Colonoscop y:Date:Res ult:Plan: referral ordered Vaccines:T dAP: Script providedZo ster rec: script providedPC V20: script provided.I nfluenza: Declined, understand riskCovid: 10/30/20, 11/27/20, 09/10/21, encourage to discuss mRNA vaccine with his cardiologi st due to his cardiac hx, maybe consider novavax. Routine labs today Immunizati on status reviewed. Will screen based on risk factors. Regular dental and ophtho care advised as well as seat belt and sunscreen use. Distracted driving discussed. Medication reconciled . Administra tion of viral vaccine 41567836 Z23 Varicella vaccination 68 421448 Z23 Needs infl uenza immunization 794655489 Z23 Fatigue 86849610 R53.83 Z00.00 Hyperlipidemia 88985371 E78.5 Z00.00 Essential hypertension 51901306 I10 Testicular hypofunction 076301748 E29.1 Secondary polycythemia 54860588 D75.1 Nocturia 497807474 R35.1 Screening for malignant neoplasm of colon 260287236 Z12.11 Obesity 676422996 E66.9 - Diet and exercise discussed- Patient made aware of risks of obesity- Encouraged to loose weight.- Avoid starchy and fatty food- Encouraged use of green vegetables and fruits Body mass index 30+ - obesity 502067627 Z68.30 Patient ne w to provider [id number] 73276 Z76.89 previous record reviewed. Umbilical hernia 0302876 07 K42.9 Right uppe r quadrant pain 951795451 R10.11 Noted on PE will get US and LFT. Hepatitis C screening 41 5520651 Z11.59 Serum crea tinine above reference range 041405940 R79.89 Administra tion of pneumococcal vaccine 59012638 Z23 [id number] Mirna Billy MD Main Office [address] [place] [address] [place] [address] 11/09/2023 13:40:24 11/09/2023 15:02:33 Right upper quadrant pain 535782756 R10.11 US ordered, reminded to get LFT.ED precaution discussed. Erythrocytosis 638882542 D75.1 [id number] KAILASH UNGER Main Office [address] [address] [place] [address] 01/06/2024 10:26:02 01/06/2024 11:04:17 Skin lesion 24847277 L98.9 2 seborrheic keratosis lesions on pt thoracic back-denie s of any tenderness /pain, bleeding, or changes in size/shape /color of lesions-pt requests a referral to dermatolog y for a skin exam Onychomyco sis of toenails 053451110 B35.1 -pt reports of having think yellow discolorat ion to toenails on bilateral feet-asymp tomatic-re quests to see a environmental services tech Low blood pressure 97538 003 I95.9 -asymptoma tic-low BP readings while in the office of 79/40-pt reports home BP readings are in the 110s range-thor acic surgeon recently increased pt dosage of metoprolol to 200 mg.-discus sed with pt to contact his surgeon regarding the dosage change [id number] Mirna Billy MD Main Office [address] [address] [place] [address] 01/24/2024 16:02:33 01/24/2024 16:24:49 Herpes labialis 9522824 B00.1 refill today. [id number] Mirna Billy MD Main Office [address] [address] [place] [address] 11/14/2024 08:52:35 11/14/2024 09:40:08 Incomplete emptying of urinary bladder 260676827 R39.14 -Will get labs and urine test.-Will get Bladder sono voiding study.-Rayray eid refer to urology after I get results and he agrees with plan.- Retention could be from trazadone but he has been on this for years so it might be unlikely.- I suspect he might have BPH and ED, but ED seems to be psychologi lisa given his erection quality is good and he does have a good sex drive per pt but it changes with his current partner.-M etoprolol could contribute but sx were not present in past when he was on this medication so unlikely.- No YANIRA preformed today to avoid irritation to the prostate which was affect PSA levels. Health Concerns Section Related Observation LastModified by Organization Detai ls LastModified Time None Recorded Concern Status LastModified by Organization Details LastModified Time None Recorded Advance Directives Directive None Recorded Payers Encounter Date Sequence Insurance Name Policy Number Policy Vanegas Covered Member ID Vanegas Member ID Guarantor Name 10/26/2023 1 [place] [facility] [id number] Sandeep Gagnonos [id number] Sandeep Gagnonos 11/09/2023 1 [place] [facility] [id number] Sandeep Gagnonos [id number] Sandeep Gagnonos 01/06/2024 1 [place] [facility] ([facility] [id number] Sandeep Gagnonos [id number] Sandeep Gagnonos 01/24/2024 1 [place] [facility] ([facility] [id number] Sandeep Gagnonos [id number] 80 Sandeep Gagnonos 11/14/2024 1 [place] [facility] ([facility] [id number] Sandeep Gagnonos [id number] Sandeep Victor Notes Date Note Type Note Provider Name and Address Organization Details Recorded Time 10/26/2023 text/html Patient present for well/new adult visit Is not using ASA. OTC/Herbal supplements use: Vit C/MV. Sex hx: 1 F parenterSTI: deniesDrug use: deniesEtoh use: Stop drinking 2011tobacco use: deniesspf/derm: uses spf, has stable mole in back. Dental: follows every 6mo, up to date.Eye: due, advised follow up.Diet: low sodium/carb dietActivity: gym. Mirna Billy MD [address] [facility] [address], [place], [address], [facility] 10/26/2023 11:37:06 11/09/2023 text/html Abdominal PainReported bypatient.Location :[facility] Quality:dull Associated Symptoms:no fever; no chills; no blood in the urine; no heartburn; no shortness of breath Mirna Billy MD [address], [address], [facility] 11/09/2023 14:44:37 01/06/2024 text/html Ru is a 53yr old M who presents for mole on back, low BP, and tenderness to left 5th digit toe. 1) Patient c/o tenderness and redness around nail of left 5th digit toe. He trimmed the nail and states it felt a lot better. Pt reports that the symptoms of pain and tenderness have since resolved. Requests a referral to podiatry. 2) Reports of 2 dark moles on back. Requesting derm referral. Denies of any known changes in size, shape, or color. Denies of any pain or tenderness.3) BP low in the office today, 79/40. Patient asymptomatic. His thoracic surgeon increased metoprolol to 200 mg. Patient advised to give him a call. KAILASH UNGER [address] [address], [place], [address], [facility] 01/06/2024 12:26:08 01/24/2024 text/html Hx of cold score , looking for refill of meds. Had ran out. Mirna Billy MD [address], [address], [facility] 01/24/2024 16:23:19 11/14/2024 text/html A 54-year-old patient who recently discontinued testosterone therapy one month ago under the guidance of a functional medicine provider presents with a 6-8 month history of symptoms suggestive of incomplete bladder emptying. He reports an increased duration of urination, needing to stand longer to fully empty his bladder, and the necessity to urinate 2-3 times nightly. The patient describes a weakened urinary stream, post-void dribbling, and a sensation of incomplete bladder emptying. His girlfriend corroborates these urinary changes. Additionally, he notes a decrease in sexual drive; while he retains an interest in sex, his drive toward his partner has diminished. There is no reported change in fatigue or depression, conditions he notes are longstanding. The patient is still able to achieve penetration and reports no change in the quality of erections when alone, though he mentions that erection quality is reduced with his partner. He denies any discharge, burning or stinging from the penis including when he urinates. He remains faithful in using his CPAP machine for previously diagnosed obstructive sleep apnea. He does take trazadone for his mental health. Mirna Billy MD [address] [address], [place], [address], [facility] 11/14/2024 09:51:56
--- OUTSIDE RECORDS SUMMARY | 2025-01-30 16:03 | XMS_ITS | Clinical Summary ---
Author Organization [employer] it Address [address] [place] [address] Care Team Providers Care Control Cabinet Assembler Name Role Phone Artemio Plaza MD Primary Care Provider [phone] Encounters Date Type Department Care Team Description 11/30/2024 Telephone [facility] [address] [facility] [place] [address] Armando Olson MD from Last 3 Months Medical History Medical History Date Comments CKD (chronic kidney disease) stage 2, GFR 60-89 ml/min DX:CKD (chronic kidney disea se) stage 2, GFR 60-89 ml/min Community acquired pneumonia DX: Community acquired pneumonia Anxiety DX:Anxiety Insomnia DX:Insomnia JAIDA on CPAP DX:JAIDA on CPAP Social History Tobacco Use Types Packs/Day Years Used Date Smoking Tobacco: Former Smokeless Tobacco: Never Alcohol Use Standard Drinks/Week Comments Not Currently 0 (1 standard drink = 0.6 oz pur e alcohol) Sex and Gender Information Value Date Recorded Sex Assigned at Not on file Legal Sex Male 11:12 PM EST Gender Identity Not on file Sexual Orientation Not on file Obstetrics History Last Filed Vital Signs Vital Sign Reading Time Taken Comments Blood Pressure 120/60 03/20/2024 8:25 AM EDT Sit ting L Arm Pulse 71 03/20/2024 8:25 AM EDT Temperature - - Respiratory Rate - - Oxygen Saturation - - Inhaled Oxygen Concentration - - Weight 103 kg (227 lb) 03/20/2024 8:25 AM EDT Height 177.8 cm (5' 10 ) 03/20/2024 8:25 AM EDT Body Mass Index 32.57 03/20/2024 8:25 AM EDT Plan of Treatment Health Maintenance Due Date Last Done Comments DTaP,Tdap,and Td Vaccines (1 - Tdap) 1988 Hepatitis B Vaccines (1 of 3 - 19+ 3-dose series) 1988 Pneumococcal Vaccine: 50+ Ye ars (1 of 1 - PCV) 2019 Zoster Vaccines (1 of 2) 2019 Cholesterol Screening (Lipid Panel) 09/20/2022 Colorectal Cancer Screening: Colonoscopy 09/20/2022 Depression Screening 09/20/2022 HIV Screening 09/20/2022 Hepatitis C Screening 09/20/2022 Social Influencers of Health Screening 09/20/2022 Hypertension/CHF/CAD Annual BMP Blood Test 11/16/2023 COVID-19 Vaccine (1 - 2023-2 5 season) 2024 Influenza Vaccine (Season Ended) 2025 HIB Vaccines Aged Out No longer eligi ble based on patient's age to complete this topic HPV Vaccines Aged Out No longer eligi ble based on patient's age to complete this topic Hepatitis A Vaccines Aged Out No long er eligible based on patient's age to complete this topic IPV Vaccines Aged Out No longer eligi ble based on patient's age to complete this topic MMR Vaccines Aged Out No longer eligi ble based on patient's age to complete this topic Meningococcal ACWY Vaccine Aged Out N o longer eligible based on patient's age to complete this topic Meningococcal B Vaccine Aged Out No l onger eligible based on patient's age to complete this topic Pneumococcal Vaccine: Pediat rics (0 to 5 Years) and At-Risk Patients (6 to 64 Years) Aged Out No longer eligible b ased on patient's age to complete this topic RSV Immunization Patients Un anastacio 20 months Aged Out No longer eligible b ased on patient's age to complete this topic Varicella Vaccines Aged Out No longer eligible based on patient's age to complete this topic Advance Directives Documents on File Type Date Recorded Patient Frequency Checker Expl anation Health Care Decision (hx) 09/18/2023 NIKKI JAQUEZ DIRECTIVE Care Teams Control Cabinet Assembler Relationship Specialty Start Date End Date Artemio Plaza MD [address] [address] PCP - General 03/20/24
--- OUTSIDE RECORDS SUMMARY | 2025-01-30 16:03 | XMS_ITS ---
Author Organization [facility] Address [address] [place] [address] Care Team Providers Care Typing Pool Supervisor Name Role Phone Artemio Plaza Primary Care Provider Bhavana Pennington Unavailable [phone] REASON FOR VISIT cx appt 11/07/24 Encounters Encounter Location Date Provider Diagnosis [facility] [address] [place] [address] 11/01/2024 Bhavana Lopez Plan Of Treatment No Information Progress Notes * Sandeep HERNÁNDEZ MDOB:1970 (54 yo M)Acc No.[id number]:11/01/2024 Patient:?Sandeep HERNÁNDEZ :1970???Age:54 Y???Sex:Male Address:[address] [place] [address], [address] * true * Date:? Generated for Printi juan carlos/Mckay/eTransmitting on:?01/30/2025 04:02 PM EDT
== END 2025-01-30 14:00 | disposition home or self-care (01) ==
LOC: HO.HUSH 13:09
PROVIDERS: PCP Family Medicine; Visit Provider Nurse Practitioner Family
DX: R39.12 Poor urinary stream (principal); R35.1 Nocturia; R39.14 Feeling of incomplete bladder emptying; Z13.9 Encounter for screening, unspecified
CPT/HCPCS: 99204

== ENCOUNTER → 2025-01-30 13:09 | Outpatient (BNVA) | payer BC, SELFPAY | PROVIDERS: PCP Family Medicine; Visit Provider Nurse Practitioner Family | DX: N40.1 Benign prostatic hyperplasia with lower urinary tract symptoms (principal); R39.12 Poor urinary stream; R35.1 Nocturia; R39.14 Feeling of incomplete bladder emptying | CPT/HCPCS: 51798; 81003 ==

== ENCOUNTER 2025-04-24 14:55 | Outpatient (AMB) | payer BC, SELFPAY ==
--- NOTE | 2025-04-24 15:31 | MHC.OFFVIS ---
Intake Visit Reasons: 3m/PVR Intake Note: Patient presents today for a 3m/PVR Urology Medication:Tamsulosin Blood Thinner:Eliquis Antibiotic Allergies:none Allergies No Known Allergies (NKA) Allergy (Verified 04/24/25 22:09) Medication List - Last Reconciled 04/24/25 by MARTA Schaefer apixaban (Eliquis) mg PO dapagliflozin propanediol (Farxiga) 10 mg PO DAILY eplerenone mg PO DAILY metoprolol succinate ER mg PO DAILY sacubitril-valsartan 97-103 mg (Entresto) tabs PO trazodone mg PO HPI Comments Details: Ru is a very pleasant 54-year-old male patient of Dr. Plaza. He has a past medical history of obstructive sleep apnea, hyperlipidemia, congestive heart failure, AFib, pulmonary embolisms, anxiety, and depression. He presents to the office today for follow-up. Of note, patient was seen approximately 3 months ago as a new patient for ongoing lower urinary tract symptoms at which time he was started on Flomax. In discussion with the patient today he reports no improvement in episodes of incomplete bladder emptying, weak urinary stream, and nocturia he has been experiencing. He does however endorse to be drinking and eating prior to bed and does feel this could be contributing to his nocturia. He does report a longstanding history of sleep apnea however he is compliant with his CPAP. Previous workup with PCP included a retroperitoneal ultrasound 12/12 that notes normal urinary bladder. Prostate volume of 38 mL. No sonography thick evidence of nephrolithiasis or hydronephrosis. Left peripelvic cysts measuring up to 2.7 cm PSA 11/11 1.5. In office urinalysis results were reviewed with the patient today PVR 0 mL. We discussed potential causes of lower urinary tract symptoms patient was experiencing as well as further treatment options and risks and benefits of these treatment options. He otherwise denies incontinence, hematuria, dysuria, foul smelling urine, flank pain, fever, and or chills. Discussed at length potential causes of these lower urinary tract symptoms he is experiencing as well as further treatment options and risks and benefits of these treatment options. He otherwise offers no other issues or concerns at this time. 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 Surgical History History of umbilical hernia repair History of lumbar spinal fusion Hx of cervical spine surgery Review of Systems Const All systems reviewed & are unremarkable except as noted in HPI and below Physical Exam Const General: cooperative, healthy appearing, comfortable, no acute distress, well developed, alert and awake Orientation/consciousness: patient oriented x3 Limitations: no limitations HEENT Head: Yes normal to inspection, Yes normocephalic and Yes atraumatic Ears: hearing grossly normal bilaterally Eyes General: appearance normal, both eyes and all related structures Neck Neck: Yes normal visual inspection and Yes trachea midline Chest Chest palpation & inspection: normal inspection of the chest Resp Effort & Inspection: normal respiratory effort and able to speak in complete sentences Cardio Rate: regular rate GI Inspection: Yes normal to inspection General: Yes no CVA tenderness Back/Spine/Pelvis Back: no CVA tenderness Skin General skin exam: no rashes or lesions noted Neuro General: patient oriented x3 Extrem General: Yes normal to inspection Psych Appearance: grossly normal and well kempt Mental Status: mental status grossly normal Speech and movement: Normal speech and movement present and Clear speech present Affect: normal affect Attitude: cooperative Thought process: Normal thought process present Thought content: Normal thought content present Insight: Fair insight present (Psych) Judgement: Fair judgement present (Psych) Results AMB Urinalysis, Automated UA Leukoctes 15 Cassie/uL Last Edit by Celi Nowak on 04/24/25 16:22 UA Nitrite Negative Last Edit by Celi Nowak on 04/24/25 16:22 UA Urobilinogen 3.5 mg/dL Last Edit by Celi Nowak on 04/24/25 16:22 UA Protein 1 mg/dL Last Edit by Celi Nowak on 04/24/25 16:22 UA pH 6.5 Last Edit by Celi Nowak on 04/24/25 16:22 UA Blood 0 Aniket/uL Last Edit by Celi Nowak on 04/24/25 16:22 UA Specific Pilgrim 1.015 Last Edit by Celi Nowak on 04/24/25 16:22 UA Ketone Negative Last Edit by Celi Nowak on 04/24/25 16:22 UA Bilirubin 0 mg/dL Last Edit by Celi Nowak on 04/24/25 16:22 UA Glucose 0 mg/dL Last Edit by Celi Nowak on 04/24/25 16:22 Results Reviewed Results Reviewed: Laboratory Last Values Urine pH (Auto) 6.5 04/24/25 16:04 Specific Pilgrim (Auto) 1.015 04/24/25 16:04 Urine Protein (Auto) 1 mg/dL 04/24/25 16:04 Glucose (UA)(Auto) 0 mg/dL 04/24/25 16:04 Urine Ketones (Auto) Negative 04/24/25 16:04 Urine Blood (Auto) 0 Aniket/uL 04/24/25 16:04 Urine Nitrite (Auto) Negative 04/24/25 16:04 Urine Bilirubin (Auto) 0 mg/dL 04/24/25 16:04 Urine Urobilinogen (Auto) 3.5 mg/dL 04/24/25 16:04 Leukocyte Esterase (Auto) 15 Cassie/uL 04/24/25 16:04 Assessment & Plan Assessment & Plan (1) Nocturia: Code(s): R35.1 - Nocturia Category: Medical Plan In office urinalysis results reviewed with the patient today; as noted above; will send for urine cytology. We discussed at length potential causes of nocturia as well as further treatment options and risks and benefits of these treatment options. We discussed lifestyle modifications such as limiting fluids 2-3 hours prior to bed to decrease episodes of nocturia. Stop Flomax Will attempt to trial lifestyle modifications We did discussed further workup to include cystoscopy and or in office urodynamics; risks and benefits of these interventions were discussed We discussed bladder triggers and irritants. We also discussed the importance of continuation and compliance with CPAP in relation to lower urinary tract symptoms as well as overall health and well-being. Follow-up in 3-4 months; or sooner with any issues, concerns, and or questions. Orders: Orders AMB Urinalysis Automated Today Z13.9 - Encounter for screening, unspecified Urine Cytology Today R35.1 - Nocturia Prostate Specific Antigen Today R35.1 - Nocturia Patient Instructions: The patient had an opportunity to ask questions regarding the treatment plan. All questions were answered. Physical exam, labs, and imaging were discussed and reviewed in detail. As well as risks, benefits, and discussion of treatment choices. No major barriers to understanding were identified. The patient expressed understanding and agreement with the above treatment plan. The patient was made aware they should contact our office by phone for worsening of their current condition, the appearance of new symptoms, or with any questions or concerns. Compliance is encouraged with any medications and follow up testing that is ordered. It is a privilege to be allowed the opportunity to participate in? your urological care.? Again, if you have any questions or concerns If you have any questions or concerns please do not hesitate to contact me. The office is [phone]. This note is constructed using voice recognition software. While every effort has been made to ensure accuracy signs sales representative errors may have been included. Yours sincerely, MARTA Schaefer Coding Level of Care Code Est Pt Level 3 (36479) Complex EM visit Add On G2211 Diagnoses Nocturia R35.1
--- OUTSIDE RECORDS SUMMARY | 2025-04-24 15:43 | XMS_ITS | Clinical Summary ---
Author Organization [employer] [facility] it Address [address] [place] [address] Care Team Providers Care Coal Cager Name Role Phone Artemio Plaza MD Primary Care Provider [phone] Medical History Medical History Date Comments CKD [...] 09/20/2022 Social Influencers of Health Screening 09/20/2022 COVID-19 Vaccine (1 - 2023-2 5 season) 2024 Influenza Vaccine (#1) 2025 HIB Vaccines Aged Out No longer [...] 5 Years) and At-Risk Patients (6 to 49 Years) Aged Out No longer eligible b ased on patient's age to complete this topic RSV Immunization Patients Un anastacio 20 months Aged Out No longer eligible b ased on patient's age to complete this topic Varicella Vaccines Aged Out No longer eligible based on patient's age to complete this topic Advance Directives Documents on File Type Date Recorded Patient Government Affairs Researcher Expl anation Health Care Decision (hx) 09/18/2023 NIKKI JAQUEZ DIRECTIVE Care Teams Coal Cager Relationship Specialty Start Date End Date Artemio Plaza MD [address] [address] PCP - General 03/20/24
--- OUTSIDE RECORDS SUMMARY | 2025-04-24 15:43 | XMS_ITS | Clinical Summary ---
Author Organization [facility] Address [address] [place] [address] Phone Care Team Providers Care Foundry Engineer Name Role Phone Artemio Plaza MD Primary Care Provider [phone] Encounters Date Type Department Care Team Description 02/16/2025 Documentation Only [facility] [address] [place] [address] Lyn Becker 01/24/2025 Documentation Only [facility] [address] [place] [address] Martin Minor MA from Last [...] Visit [facility] [address] [place] [address] Juan Pablo Chery, [address] [place] [address] Health Maintenance Due Date Last Done Comments Hepatitis B Vaccine (1 of 3 - 19+ 3-dose series) 06/26 Pneumococcal Vaccine: 50+ Years (1 of 2 - PCV) 988 Colorectal Cancer Screening: Annual FOBT 2018 Colorectal Cancer Screening: Colonoscopy 2018 Colorectal Cancer Screening: Sigmoidoscopy 2018 Influenza Vaccine (#1) 2025 Insurance [facility] Care Teams Foundry Engineer Relationship Specialty Start Date End Date Artemio Plaza MD [address] [address] PCP - General Family Medicine 01/01/25
--- OUTSIDE RECORDS SUMMARY | 2025-04-24 15:43 | XMS_ITS | Patient Health Record ---
Author Organization [facility] [place] Address [address] [place] [address] Care Team Providers Care Edge Trimming Machine Operator Name Role Phone Artemio Plaza Primary Care Provider Bhavana Pennington Unavailable [phone] Allergies No Known Allergies Reason For Referral [...] Artemio Referring Provider Last Name Bola Referred Organization [facility] Referred Provider Bhavana Lopez Referred Address [address] [place], [place],[address], Referred Provider Specialty Podiatry Referral Priority Routine Medications Medication SIG (Take, Route, Fr equency, Duration) Notes Start Date End Date Status Venlafaxine HCl Acti ve Vitamin C Active traZODone HCl 150 MG 1 tablet at bedtime Orally Once a day; Duration: 30 day(s) Activ e Testosterone Active Multivitamin Active Immunizations Vaccine Route [...] Status Risk Notes Problem Acquired hallux valgus (16310780) Hallux valgus (acquired), right foot (M20.11) Active confirmed Problem Acquired hammer toe of right foot ([id number] 105) Other hammer toe(s) (acquired), right foot (M20.41) Active confirmed Encounters Encounter Location Date Provider Diagnosis [facility] [place] [address] [place] [address] 11/01/2024 Bhavana Lopez Plan Of Treatment Pending Test Test Name Order Date X ray : Foot, right 3V 11/23/2022 Insurance Providers Payer Name Payer Address Payer Phone Subscriber Number Group Number Insured Name Patient Relationship to Insured Coverage Start Date Coverage End Date [facility] [address] [place] [address] [id number] Sandeep Victor Self - patient is the insured Medical (General) History Medical History History ICD Code Broken bones Chicken pox Bone implants/screws Surgical History Surgery Date(Month/Year) L 5 S1 Fusion C4 disc replacement 11/11/22 C3 C4 disc replacement /fusion
== END 2025-04-24 16:25 | disposition home or self-care (01) ==
LOC: HO.HUSH 15:00
PROVIDERS: PCP Family Medicine; Visit Provider Nurse Practitioner Family
DX: Z13.9 Encounter for screening, unspecified (principal); R35.1 Nocturia
CPT/HCPCS: 99213

== ENCOUNTER 2025-04-24 14:55 | Outpatient (REF) | payer BC, SELFPAY | END 2025-04-24 14:56 | disposition home or self-care (01) | LOC: HO.LAB 14:55 | PROVIDERS: PCP Family Medicine; Visit Provider Nurse Practitioner Family | DX: R35.1 Nocturia (principal); Z13.9 Encounter for screening, unspecified | CPT/HCPCS: 81003; 88112 ==

== ENCOUNTER 2025-06-13 14:45 | Outpatient (REF) | payer BC, SELFPAY ==
--- OUTSIDE RECORDS SUMMARY | 2024-11-07 05:15 | XMS_ITS ---
Author Organization [facility] Address [address] [place] [address] Care Team Providers Care Steward/Stewardess Dining Room Name Role Phone Artemio Plaza Primary Care Provider Bhavana Pennington [phone] Encounters Encounter Location Date [facility] [address] [address] 11/07/2024 Bhavana Lopez Plan Of Treatment No Information Progress Notes * Sandeep HERNÁNDEZ MDOB:1970 (54 yo M)Acc No.[id number]:11/07/2024 Progress Note Patient: Sandeep ZHANG Provider: Jolie Lopez DPM :1970 A ge:54 Y S ex:Male Date:11/07/2024 Address:[address] [place], [place] [id number] Pcp:Artemio Plaza Subjective: * Chief Complaints: * [...] 0 11/07/2024 Generated for Printi ng/Faxing/eTransmitting on: 0 06/13/2025 04:07 PM EDT
--- OUTSIDE RECORDS SUMMARY | 2025-06-13 16:06 | XMS_ITS | Clinical Summary ---
Author Organization [facility] Address [address] [place] [address] Phone Care Team Providers Care Merchandise Associate Name Role Phone Artemio Plaza MD Primary Care Provider [phone] Allergies No known active allergies Medications FARXIGA 10 mg tablet Take 10 mg by mouth daily. 09/04/2023 Active metoprolol succinate (TOPROL-XL) 25 MG 24 hr tablet 09/04/2023 Act thong sacubitril-vals altagracia 24-26 mg per tablet Take by mouth. 09/04/2023 Active venlafaxine (EFFEXOR) 25 MG tablet Take 1 tablet by mouth 2 (two) times a day. 08/11/2023 Active traZODone (DESYREL) 150 MG tablet TAKE 2 TABLETS BY MOUTH 1 TIME A DAY 06/18/2023 Active ELIQUIS 5 mg tablet Take 1 tablet by mouth 2 (two) times a day. 11/16/2023 Active eplerenone (INSPRA) 25 MG tablet Take 1 tablet by mouth every morning. 04/03/2024 Active escitalopram oxalate (LEXAPRO) 5 MG tablet Take 7.5 mg by mouth daily. 06/02/2024 Active Active Problems Problem Noted Date Diagnosed Date Recurrent umbilical hernia 09/06/2023 Social History Tobacco Use Types Packs/Day Years Used Date Smoking Tobacco: Never Smokeless Tobacco: Never Tobacco Cessation:Counseling Given: Not Answered Education Answer Date Recorded Are you interested in more education? Not on eliezer e 08/24/2023 Are you concerned about learning? Not on file 08/24/2023 No 08/24/2023 No 08/24/2023 Digital Access Answer Date Recorded No 08/24/2023 No 08/24/2023 Reliable internet access at home? Not on file 08/24/2023 Device with a working camera? Not on file Intimate Partner Violence Answer Date R ecorded Are you denied basic needs s uch as food, clothing, or medical care? No 06/06/2024 In the past 12 months have y ou been in a relationship with a person who hurts, threatens, or tries to control you? No 06/06/2024 Are you denied basic needs s uch as food, clothing, or medical care? No 06/06/2024 In the past 12 months have y ou been in a relationship with a person who hurts, threatens, or tries to control you? No 06/06/2024 Sex and Gender Information Value Date Recorded Sex Assigned at Male 08/31/2023 1:51 PM EST Legal Sex Male 1:17 PM EST Gender Identity Male 08/31/2023 1:51 PM EST Sexual Orientation Straight 08/31/2023 1: 51 PM EST Last Filed Vital Signs Vital Sign Reading Time Taken Comments Blood Pressure 96/60 06/06/2024 11:10 AM EDT Pulse 65 06/06/2024 11:10 AM EDT Temperature 36.4 C (97.6 F) 06/06/2024 11:00 AM EDT Respiratory Rate 13 06/06/2024 11:10 AM EDT Oxygen Saturation 98% 06/06/2024 11:10 AM EDT Inhaled Oxygen Concentration - - Weight 103.4 kg (228 lb) 09/06/2023 1:46 PM EST Height 177.8 cm (5' 10 ) 09/06/2023 1:46 PM EST Body Mass Index 32.71 09/06/2023 1:46 PM EST Plan of Treatment Health Maintenance Due Date Last Done Comments Adult Td,Tdap Booster 1970 CREATININE LEVEL 1969 LIPID PANEL 1969 POTASSIUM LEVEL 1969 DEPRESSION SCREENING 1981 HEPATITIS C SCREENING 1987 HIV ONE-TIME SCREENING (18-6 5 YEARS) 1987 SCREENING FOR DIABETES 2004 COLOGUARD 2014 FIT TEST 2014 FOBT 2014 SIGMOIDOSCOPY 2014 VIRTUAL COLONOSCOPY 2014 PNEUMOCOCCAL VACCINES (50+ y ears) (1 of 1 - PCV) 2019 ZOSTER VACCINES (1 of 2) 2019 COVID-19 VACCINE (1 - 2023-2 5 season) 2024 COLONOSCOPY 06/06/2034 06/06/2024 COLORECTAL CANCER SCREENING 06/06/2034 SMOKING STATUS SCREENING (On ce After 26 Yrs) Completed 06/06/2024 HEPATITIS A VACCINES Aged Out No long er eligible based on patient's age to complete this topic HIB VACCINES Aged Out No longer eligi ble based on patient's age to complete this topic MENINGOCOCCAL VACCINES (ACWY) Aged Out No longer eligible based on patient's age to complete this topic MENINGOCOCCAL VACCINES (B) Aged Out N o longer eligible based on patient's age to complete this topic Medical Devices Not on file Procedures Procedure Name Priority Date/Time Associated Diagnosis Comments ENDOSCOPY, COLON 06/06/2024 10:0 3 AM EDT from Last 3 Months or Most Recently Relevant to Health Maintenance Results * ENDOSCOPY, COLON (06/06/2024 10:03 AM EDT) Narrative Transcriptions Suki Velázquez MD - 06/06/2024 10:03 AM EDT [facility] Patient Name: Ru Victor Attending MD:: SUKI VELÁZQUEZ MD, Procedure Date: 06/06/2024 10:03 AM Date of : 1970 Age: 53 Admit Type: Outpatient Gender: Male Room: [facility] Referring MD: Artemio Plaza Exam Type: Colonoscopy Indications: Screening for colorectal malignant neoplasm, Thisis the patient's first colonoscopy Medications: Monitored Anesthesia Care Procedure: Informed consent was obtained from the patientafter discussion of the indications, limitations, alternatives, benefits, and risks of the procedure. Risks specifically discussed include but are not limited to medication reactions, missed lesions, bleeding, perforation, or the need for emergent surgery. Throughout the procedure, the patient's blood pressure, pulse, end-tidal CO2, and oxygensaturations were monitored continuously. The Olympus adult variable colonoscope CF-OF304V #6 was introduced through the anus and advanced to the cecum, identified by appendiceal orifice andileocecal valve. The colonoscopy was performed without difficulty. Complications: No immediate complications. Estimated blood loss:None. Findings: The perianal and digital rectal examinations were normal. Pertinent negatives include normalsphincter tone. Non-bleeding internal hemorrhoids were found during retroflexion. The hemorrhoids were moderate. Many small and large-mouthed diverticula were foundin the sigmoid colon and descending colon. Retroflexion in the right colon was performed. A moderate amount of semi-liquid stool was found in the transverse colon, in the ascending colon and in the cecum, making visualization difficult. The exam was otherwise without abnormality ondirect and retroflexion views. Impression: - Non-bleeding internal hemorrhoids. - Diverticulosis in the sigmoid colon and in the descending colon. - Stool in the transverse colon, in the ascending colon and in the cecum. - The examination was otherwise normal on directand retroflexion views. - No specimens collected. Recommendation: - Resume Eliquis (apixaban) at prior dose today. - Repeat colonoscopy in 10 years for screening purposes. SUKI VELÁZQUEZ MD 06/06/2024 10:58:58 AM This report has been signed electronically. Number of Addenda: 0 Note Initiated On: 06/06/2024 10:03 AM Procedure Code(s): --- Professional --- 69048, Colonoscopy, flexible; diagnostic, including collection of specimen(s) by brushing or washing, when performed (separateprocedure) --- Technical --- 40705, Colonoscopy, flexible; diagnostic, including collection of specimen(s) by brushing or washing, when performed (separateprocedure) Diagnosis Code(s): --- Professional --- Z12.11, Encounter for screening for malignantneoplasm of colon K64.8, Other hemorrhoids K57.30, Diverticulosis of large intestine without perforation or abscess without bleeding --- Technical --- Z12.11, Encounter for screening for malignantneoplasm of colon K64.8, Other hemorrhoids K57.30, Diverticulosis of large intestine without perforation or abscess without bleeding CPT copyright 2021 [employer]. All rights reserved. The codes documented in this report are preliminary and upon coagulating bath mixer reviewmay be revised to meet current compliance requirements. Procedure Date: 06/06/2024 10:03:[address] [place] [address] Artemio Plaza MD GI PROCEDURE ORDERABLES Final Result from Last 3 Months or Most Recently Relevant to Health Maintenance [place] [address] [facility] Care Teams Merchandise Associate Relationship Specialty Start Date End Date Artemio Plaza MD [address] [phone] PCP - General Family Medicine 10/27/23 Additional Source Comments The information contained in this document represents components of the legal health record. It is not the complete legal health record.[facility]
--- OUTSIDE RECORDS SUMMARY | 2025-06-13 16:06 | XMS_ITS | Encounter Summary ---
Author Organization [facility] Address [address] [place] [address] Phone Care Team Providers Care Building Specialist Name Role Phone Artemio Plaza MD Primary Care Provider [phone] Encounter Details Date Type Department Care Team (Late Contact Info) Description 01/01/2025 Documentation Only [facility] [address] [place] [address] Martin Minor [place] [address] [place] [phone] Social History Tobacco Use Types Packs/Day Years Used Date Smoking Tobacco: Never Assessed Sex and Gender Information Value Date Recorded Sex Assigned at Not on file Legal Sex Male 2:30 PM EDT Gender Identity Not on file Sexual Orientation Not on file documented as of this encounter Plan of Treatment Upcoming Encounters Date Type Department Care Team (Late st Contact Info) Description 12/05/2025 3:00 PM EST Office Visit [facility] [address] [place] [address] Juan Pablo Chery [address] [place] [address] documented as of this encounter Visit Diagnoses Not on filedocumented in this encounter Care Teams Building Specialist Relationship Specialty Start Date End Date Artemio Plaza MD [address] [phone] PCP - General Family Medicine 01/01/25 documented as of this encounter
--- OUTSIDE RECORDS SUMMARY | 2025-06-13 16:06 | XMS_ITS | Clinical Summary ---
Author Organization [facility] Address [address] [place] [address] Phone Care Team Providers Care National Account Representative Name Role Phone Artemio Plaza MD Primary Care Provider [phone] Medications apixaban (Eliquis) 5 MG tablet Take 5 mg by mouth in the morning and 5 mg in the evening. Active Dapagliflozin Propanediol (Farxiga) 10 MG tablet Take by mouth 1 (one) time each day Active eplerenone (INSPRA) 25 MG tablet Take 25 mg by mouth 1 (one) time each day Active Methocarbamol 1000 MG tablet Take 1 tablet every 8 hours by oral route as needed for 14 days. Active propranolol (INDERAL) 10 MG tablet Take 10 mg by mouth 1 (one) time each day if needed Active sacubitril-valsa rtan (Entresto) 97-103 MG per tablet Take 1 tablet by mouth in the morning and 1 tablet in the evening. Active traZODone (DESYREL) 50 MG tablet TAKE UP TO 3 TABLETS BY MOUTH EVERY NIGHT AT BEDTIME NEEDED FOR INSOMNIA Active valACYclovir (VALTREX) 1 g tablet TAKE 2 TABLETS BY MOUTH TWICE DAILY FOR 1 DAY Active Active Problems Problem Noted Date Diagnosed Date Obstructive sleep apnea syndrome 05/22/2025 Chronic kidney disease stage 2 11/10/2023 Essential hypertension 10/26/2023 Encounters Date Type Department Care Team Description 05/30/2025 3:30 PM EDT Office Visit [facility], [address] [place] [address] Juan Pablo Chery DO Serum creatinine above reference range (Primary Dx) from Last 3 Months Immunizations Immunization Administration Dates Next Due Moderna SARS-COV-2 09/10/2021,11/27/2020, 021 Shingrix 10/27/2023 Tdap 10/27/2023 Social History Tobacco Use Types Packs/Day Years Used Date Smoking Tobacco: Never Assessed Sex and Gender Information Value Date Recorded Sex Assigned at Not on file Legal Sex Male 2:30 PM EDT Gender Identity Not on file Sexual Orientation Not on file Last Filed Vital Signs Vital Sign Reading Time Taken Comments Blood Pressure 110/64 05/30/2025 3:59 PM EDT Pulse 72 05/30/2025 3:59 PM EDT Temperature - - Respiratory Rate - - Oxygen Saturation - - Inhaled Oxygen Concentration - - Weight - - Height - - Body Mass Index - - Plan of Treatment Upcoming Encounters Date Type Department Care Team (Late st Contact Info) Description 12/05/2025 3:00 PM EST Office Visit [facility] [address] [place] [address] Juan Pablo Chery, [address] [place] [phone] Health Maintenance Due Date Last Done Comments Hepatitis B Vaccine (1 of 3 - 19+ 3-dose series) 06/26 Pneumococcal Vaccine: 50+ Years (1 of 2 - PCV) 988 Colorectal Cancer Screening: Annual FOBT 2018 Colorectal Cancer Screening: Colonoscopy 2018 Colorectal Cancer Screening: Sigmoidoscopy 2018 Influenza Vaccine (#1) 2025 Insurance [facility] Care Teams National Account Representative Relationship Specialty Start Date End Date Artemio Plaza MD [address] [phone] PCP - General Family Medicine 01/01/25
--- OUTSIDE RECORDS SUMMARY | 2025-06-13 16:06 | XMS_ITS | Encounter Summary ---
Author Organization [facility] Address [address] [place] [address] Phone Care Team Providers Care Sap Bw Developer Name Role Phone Artemio Plaza MD Primary Care Provider Encounter Details Date Type Department Care Team (Late st Contact Info) Description 02/16/2025 Documentation Only [facility] [address] [place] [phone] Lyn Becker Social History Tobacco Use Types Packs/Day Years [...] Visit [facility] [address] [place] [address] Juan Pablo Chery DO [address] [place] [address] [place] [phone] documented as of this encounter Visit Diagnoses Not on filedocumented in this encounter Care Teams Sap Bw Developer Relationship Specialty Start Date End Date Artemio Plaza MD [address] [phone] PCP - General Family Medicine 01/01/25 documented as of this encounter
--- OUTSIDE RECORDS SUMMARY | 2025-06-13 16:06 | XMS_ITS | Encounter Summary ---
Author Organization [facility] Address [address] [place] [address] Phone Care Team Providers Care Incendiaries Supervisor Name Role Phone Lorenzo Dawkins MD Primary Care Provider Unknown, Unknown Primary Care Provider Artemio Kinney MD Primary Care Provider [phone] Encounter Details Date Type Department Care Team (Late st Contact Info) Description 09/06/2023 Procedure Pass [facility], Ct Scan - [address] [address] Social History Tobacco Use Types Packs/Day Years Used Date Smoking Tobacco: Never Assessed Education Answer Date Recorded Are you interested in more education? Not on eliezer e 08/24/2023 Are you concerned about learning? Not on file 08/24/2023 No 08/24/2023 No 08/24/2023 Digital Access Answer Date Recorded No 08/24/2023 No 08/24/2023 Reliable internet access at home? Not on file 08/24/2023 Device with a working camera? Not on file Sex and Gender Information Value Date Recorded Sex Assigned at Male 08/31/2023 1:51 PM EST Legal Sex Male 1:17 PM EST Gender Identity Male 08/31/2023 1:51 PM EST Sexual Orientation Straight 08/31/2023 1: 51 PM EST documented as of this encounter Plan of Treatment Not on file documented as of this encounter Visit Diagnoses Not on filedocumented in this encounter Care Teams Incendiaries Supervisor Relationship Specialty Start Date End Date Lorenzo Dawkins MD [address] [place] [address] [place] [address] PCP - General Internal Medicine 08/24/23 10/20/23 Unknown, Unknown, MD PCP - General 10/21/23 10/26/23 Artemio Plaza MD [address] [phone] PCP - General Family Medicine 10/27/23 documented as of this encounter Additional Source Comments The information contained in this document represents components of the legal health record. It is not the complete legal health record.[facility]
--- OUTSIDE RECORDS SUMMARY | 2025-06-13 16:06 | XMS_ITS | Patient Health Record ---
Author Organization [facility] [place] Address [address] [place] [address] Care Team Providers Care Shoe Handler Name Role Phone Artemio Plaza Primary Care Provider Bhavana Pennington Unavailable [phone] Allergies No Known Allergies Reason For Referral Diagnosis 1 Hallux valgus (acqui red), right foot (M20.11) Diagnosis 2 Other hammer toe(s) (acquired), right foot (M20.41) Diagnosis 3 Pain in right foot ( M79.671) Diagnosis 4 Pain in left foot (M 79.672) Diagnosis 5 Other viral warts (B 07.8) Diagnosis 6 Tinea unguium (B35.1 ) Referring Provider First Name Artemio Referring Provider Last Name Bloa Referred Organization [facility] Referred Provider Bhavana Lopez Referred Address [address] [place],[address], Referred Provider Specialty Podiatry Referral Priority Routine [...] Status Risk Notes Problem Acquired hallux valgus (32607466) Hallux valgus (acquired), right foot (M20.11) Active confirmed Problem Acquired hammer toe of right foot (3298752302429 105) Other hammer toe(s) (acquired), right foot (M20.41) Active confirmed Encounters Encounter Location Date Provider Diagnosis [facility] [place] [address] [place] [address] 11/01/2024 Bhavana Lopez Plan Of Treatment Pending Test Test Name Order Date X ray : Foot, right 3V 11/23/2022 Insurance Providers Payer Name Payer Address Payer Phone Subscriber Number Group Number Insured Name Patient Relationship to Insured Coverage Start Date Coverage End Date [facility] [address] [place] [address] [id number] Sandeep Victor Self - patient is the insured Medical (General) History Medical History History ICD Code Broken bones Chicken pox Bone implants/screws Surgical History Surgery Date(Month/Year) L 5 S1 Fusion C4 disc replacement 11/11/22 C3 C4 disc replacement /fusion
--- OUTSIDE RECORDS SUMMARY | 2025-06-13 16:06 | XMS_ITS | Encounter Summary ---
Author Organization [facility] Address [address] [place] [address] Phone Care Team Providers Care Toe Former Stitchdowns Name Role Phone Artemio Plaza MD Primary Care Provider [phone] Encounter Details Date Type Department Care Team (Late st Contact Info) Description 06/06/2024 Procedure Pass [facility] Endoscopy Admitting Dept Virtual Department [address] [place] [address] Social History Tobacco Use Types Packs/Day Years Used Date Smoking Tobacco: Never Smokeless Tobacco: Never Education Answer Date Recorded Are you interested [...] on filedocumented in this encounter Care Teams Toe Former Stitchdowns Relationship Specialty Start Date End Date Artemio Plaza MD [address] [phone] PCP - General Family Medicine 10/27/23 documented as of this encounter Additional Source Comments The information contained in this document represents components of the legal health record. It is not the complete legal health record.[facility]
--- OUTSIDE RECORDS SUMMARY | 2025-06-13 16:06 | XMS_ITS | Encounter Summary ---
Author Organization [facility] Address [address] [place] [address] Phone Care Team Providers Care Successfactors Consultant Name Role Phone Artemio Plaza MD Primary Care Provider [phone] Encounter Details Date Type Department Care Team (Late Contact Info) Description 01/24/2025 Documentation Only [facility] [address] [place] [address] Martin Minor [place] [address] [place] [phone] Social History Tobacco Use Types Packs/Day Years [...] Visit [facility] [address] [place] [address] Juan Pablo Chery [address] [place] [address] documented as of this encounter Visit Diagnoses Not on filedocumented in this encounter Care Teams Successfactors Consultant Relationship Specialty Start Date End Date Artemio Plaza MD [address] [phone] PCP - General Family Medicine 01/01/25 documented as of this encounter
--- OUTSIDE RECORDS SUMMARY | 2025-06-13 16:07 | XMS_ITS | Clinical Summary ---
Author Organization [facility] it Address [address] [place] [address] Care Team Providers Care Millstone Cleaner Name Role Phone Artemio Plaza MD Primary Care Provider [phone] Medical History Medical History Date Comments CKD [...] Panel) 09/20/2022 Colorectal Cancer Screening: Colonoscopy 09/20/2022 HIV Screening 09/20/2022 Hepatitis C Screening 09/20/2022 Social Influencers of Health Screening 09/20/2022 COVID-19 Vaccine (1 - 2023-2 5 season) 2024 Depression Screening 10/18/2024 Influenza Vaccine (#1) 2025 HIB Vaccines Aged [...] Documents on File Type Date Recorded 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
== END 2025-06-13 14:46 | disposition home or self-care (01) ==
LOC: HO.BBR 14:45
PROVIDERS: PCP Family Medicine; Visit Provider Physician Assistant
DX: D75.1 Secondary polycythemia (principal)
CPT/HCPCS: 85018; 99195

== ENCOUNTER 2025-08-14 09:57 | Outpatient (REF) | payer BC, SELFPAY ==
--- OUTSIDE RECORDS SUMMARY | 2024-11-07 05:15 | XMS_ITS ---
Author Organization [facility] Address [address] [place] [address] Care Team Providers Care Mud Jack Nozzleman Name Role Phone Artemio Plaza Primary Care Provider Bhavana Pennington [phone] Encounters Encounter Location Date [facility] [address] [address] 11/07/2024 Bhavana Lopez Plan Of Treatment No Information Progress Notes * Sandeep HERNÁNDEZ MDOB:1970 (55 yo M)Acc No.[id number]:11/07/2024 Progress Note Patient: Sandeep ZHANG Provider: Jolie Lopez DPM :1970 A ge:54 Y S ex:Male Date:11/07/2024 Address:[address] [place], [place] [phone] Pcp:Artemio Plaza Subjective: * Chief Complaints: * * Medical History: Objective: * Vitals: Assessment: Plan: * Treatment: * Images: * The named appointment provid er may or may not be the originator of this progress note, and it is not deemed complete until electronically signed by the appointment provider. Sign off status: Pending * Provider: Jolie Lopez DPM Date: 0 11/07/2024 Generated for Printi ng/Faxing/eTransmitting on: 11:47 AM EDT
--- OUTSIDE RECORDS SUMMARY | 2025-08-14 11:47 | XMS_ITS | Encounter Summary ---
Author Organization [facility] Address [address] [place] [address] Phone Care Team Providers Care Drafter Landscape Name Role Phone Artemio Plaza MD Primary Care Provider [phone] Encounter Details Date Type Department Care Team (Late st Contact Info) Description 06/06/2024 Procedure Pass [facility] Endoscopy Admitting Dept Virtual Department [address] [place] [address] Social History Tobacco Use Types Packs/Day Years [...] on filedocumented in this encounter Care Teams Drafter Landscape Relationship Specialty Start Date End Date Artemio Plaza MD [address] [phone] PCP - General Family Medicine 10/27/23 documented as of this encounter Additional Source Comments The information contained in this document represents components of the legal health record. It is not the complete legal health record.[facility]
--- OUTSIDE RECORDS SUMMARY | 2025-08-14 11:47 | XMS_ITS | Encounter Summary ---
Author Organization [facility] Address [address] [place] [address] Phone Care Team Providers Care Finishing Supervisor Plastic Sheets Name Role Phone Lorenzo Dawkins MD Primary Care Provider Unknown, Unknown Primary Care Provider Artemio Kinney MD Primary Care Provider [phone] Encounter Details Date Type Department Care Team (Late st Contact Info) Description 09/06/2023 Procedure Pass [facility], Ct Scan - [address] [address] Social History Tobacco Use Types Packs/Day Years [...] on filedocumented in this encounter Care Teams Finishing Supervisor Plastic Sheets Relationship Specialty Start Date End Date Lorenzo Dawkins MD [address] [place] [address] [place] [address] PCP - General Internal Medicine 08/24/23 10/20/23 Unknown, Unknown, MD PCP - General 10/21/23 10/26/23 Artemio Plaza MD [address] [phone] PCP - General Family Medicine 10/27/23 documented as of this encounter Additional Source Comments The information contained in this document represents components of the legal health record. It is not the complete legal health record.[facility]
--- OUTSIDE RECORDS SUMMARY | 2025-08-14 11:47 | XMS_ITS | Clinical Summary ---
Author Organization [facility] it Address [address] [place] [address] Care Team Providers Care Stamp Pad Maker Name Role Phone Artemio Plaza MD Primary Care Provider [phone] Medical History Medical History Date Comments CKD [...] Health Maintenance Due Date Last Done Comments Colorectal Cancer Screening: Colonoscopy 1969 DTaP,Tdap,and Td Vaccines (1 - Tdap) 1988 Hepatitis B Vaccines (1 of 3 - 19+ 3-dose series) 1988 Pneumococcal Vaccine: 50+ Ye ars (1 of 1 - PCV) 2019 RSV Immunization Adult Patie nts (1 - Risk 50-74 years 1-dose series) 2019 Zoster Vaccines (1 of 2) 2019 Cholesterol Screening (Lipid Panel) 09/20/2022 HIV Screening 09/20/2022 Hepatitis C Screening 09/20/2022 Social Influencers of Health Screening 09/20/2022 Depression Screening 10/18/2024 COVID-19 Vaccine (1 - 2023-2 5 season) 2025 Influenza Vaccine (#1) 2025 HIB Vaccines Aged [...] Documents on File Type Date Recorded 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
--- OUTSIDE RECORDS SUMMARY | 2025-08-14 11:47 | XMS_ITS | Patient Health Record ---
[facility] [place] Address [address] [place] [address] Care Team Providers Care Tape Making Machine Operator Name Role Phone Artemio Plaza Primary Care Provider Bhavana Pennington Unavailable [phone] Allergies No Known Allergies Reason For Referral [...] Referring Provider Last Name Bola Referred Organization [facility] Referred Provider Bahvana Lopez Referred Address [address] [place], [place],[address], Referred Provider Specialty Podiatry Referral Priority Routine [...] Status Risk Notes Problem Acquired hallux valgus (00998453) Hallux valgus (acquired), right foot (M20.11) Active confirmed Problem Acquired hammer toe of right foot (1569436524099 105) Other hammer toe(s) (acquired), right foot (M20.41) Active confirmed Encounters Encounter Location Date Provider Diagnosis [facility] [address] [place] [address] 11/01/2024 Bhavana Lopez Plan Of Treatment Pending Test Test Name Order Date X ray : Foot, right 3V 11/23/2022 Insurance Providers Payer Name Payer Address Payer Phone Subscriber Number Group Number Insured Name Patient Relationship to Insured Coverage Start Date Coverage End Date [facility] [address] [place] [address] [phone] [id number] Sandeep Victor Self - patient is the insured Medical (General) History Medical History History ICD Code Broken bones Chicken pox Bone implants/screws Surgical History Surgery Date(Month/Year) L 5 S1 Fusion C4 disc replacement 11/11/22 C3 C4 disc replacement /fusion
--- OUTSIDE RECORDS SUMMARY | 2025-08-14 11:47 | XMS_ITS | Clinical Summary ---
Author Organization [facility] Address [address] [place] [address] Phone Care Team Providers Care Ophthalmic Photographer Name Role Phone Artemio Plaza MD Primary Care Provider [phone] Allergies No known active allergies Medications FARXIGA [...] ears) (1 of 1 - PCV) 2019 RSV VACCINE (1 - Risk 50-74 years 1-dose series) 2019 ZOSTER VACCINES (1 of 2) 2019 INFLUENZA VACCINE (#1) 2025 COVID-19 VACCINE (1 - 2024-2 6 season) 2025 COLONOSCOPY 06/06/2034 06/06/2024 COLORECTAL CANCER SCREENING 06/06/2034 [...] Velázquez MD - 06/06/2024 10:03 AM EDT [facility] Patient Name: Ru Kayleigh Attending MD:: SUKI VELÁZQUEZ MD, Procedure Date: 06/06/2024 10:03 AM Date of : 1970 Age: 53 Admit Type: Outpatient Gender: Male Room: [facility] Referring MD: Artemio Plaza Exam Type: Colonoscopy [...] monitored continuously. The Olympus adult variable colonoscope [id number] #6 was introduced through the anus and [...] 10:03 AM Procedure Code(s): --- Professional --- 32402, Colonoscopy, flexible; diagnostic, including collection of specimen(s) by brushing or washing, when performed (separateprocedure) --- Technical --- 89424, Colonoscopy, flexible; diagnostic, including collection of specimen(s) [...] or abscess without bleeding CPT copyright 2021 [employer]. All rights reserved. The codes documented in this report are preliminary and upon md senior research scientist reviewmay be revised to meet current compliance requirements. Procedure Date: 06/06/2024 10:03:[address] [place] [address] Artemio Plaza MD GI PROCEDURE ORDERABLES Final Result from Last 3 Months or Most Recently Relevant to Health Maintenance [place] [place] [address] [place] [address] [facility] Care Teams Ophthalmic Photographer Relationship Specialty Start Date End Date Artemio Plaza MD [address] [phone] PCP - General Family Medicine 10/27/23 Additional Source Comments The information contained in this document represents components of the legal health record. It is not the complete legal health record.[facility]
== END 2025-08-14 09:58 | disposition home or self-care (01) ==
LOC: HO.BBR 09:57
PROVIDERS: PCP Family Medicine; Visit Provider Physician Assistant
DX: D75.1 Secondary polycythemia (principal)
CPT/HCPCS: 85018; 99195

== ENCOUNTER 2025-10-15 13:05 | Outpatient (REF) | payer BC, SELFPAY ==
--- OUTSIDE RECORDS SUMMARY | 2024-11-07 04:15 | XMS_ITS ---
Author Organization [facility] Address [address] [place] [address] Care Team Providers Care Tar Heater Name Role Phone Artemio Plaza Primary Care Provider Bhavana Pennington [phone] Encounters Encounter [facility] Date [facility] [address] [address] 11/07/2024 Bhavana Lopez Plan Of Treatment No Information Progress Notes * Sandeep HERNÁNDEZ MDOB:1970 (55 yo M)Acc No.[id number]:11/07/2024 Progress Note Patient: Sandeep ZHANG Provider: Jolie Lopez DPM :1970 A ge:54 Y S ex:Male Date:11/07/2024 Address:[address] [place], [place] [id number] Pcp:Artemio Plaza Subjective: * Chief Complaints: * * Medical History: Objective: * Vitals: Assessment: Plan: * Treatment: * Images: * The named appointment provid er may or may not be the originator of this progress note, and it is not deemed complete until electronically signed by the appointment provider. Sign off status: Pending * Provider: Jloie Lopez DPM Date: 0 11/07/2024 Generated for Mareki ng/Farobertog/eTransmitting on: 03:02 PM EST
--- OUTSIDE RECORDS SUMMARY | 2025-10-15 15:01 | XMS_ITS | Encounter Summary ---
Author Organization [facility] Address [address] [place] [address] Phone Care Team Providers Care Folder Operator Name Role Phone Artemio Plaza MD Primary Care Provider [phone] Encounter Details Date Type Department Care Team (Late Contact Info) Description 01/24/2025 Documentation Only [facility] [address] [place] [address] Martin Minor [place] [address] [place] [phone] Social History Tobacco Use Types Packs/Day Years [...] Visit [facility] [address] [place] [address] Juan Pablo Chery [address] [place] [address] documented as of this encounter Visit Diagnoses Not on filedocumented in this encounter Care Teams Folder Operator Relationship Specialty Start Date End Date Artemio Plaza MD [address] [phone] PCP - General Family Medicine 01/01/25 documented as of this encounter
--- OUTSIDE RECORDS SUMMARY | 2025-10-15 15:01 | XMS_ITS | Encounter Summary ---
Author Organization [facility] Address [address] [place] [address] Phone Care Team Providers Care Legal Associate Name Role Phone Artemio Plaza MD Primary Care Provider [phone] Encounter Details Date Type Department Care Team (Late Contact Info) Description 01/01/2025 Documentation Only [facility] [address] [place] [address] Martin Minor [place] [address] [place] [phone] Social History Tobacco Use Types Packs/Day Years [...] Visit [facility] [address] [place] [address] Juan Pablo Chery [address] [place] [address] documented as of this encounter Visit Diagnoses Not on filedocumented in this encounter Care Teams Legal Associate Relationship Specialty Start Date End Date Artemio Plaza MD [address] [phone] PCP - General Family Medicine 01/01/25 documented as of this encounter
--- OUTSIDE RECORDS SUMMARY | 2025-10-15 15:01 | XMS_ITS | Clinical Summary ---
Author Organization [facility] Address [address] [address] Phone Care Team Providers Care Battalion Chief Name Role Phone Artemio Plaza MD Primary Care Provider [phone] Medications apixaban (Eliquis) 5 MG tablet Take [...] Encounters Date Type Department Care Team Description 08/29/2025 Documentation Only [facility] [address] [place] [address] Martin Minor [place] from Last 3 Months Immunizations Immunization Administration [...] Visit [facility] [address] [place] [phone] Juan Pablo Chery DO [address] [facility] [address] [place] [phone] Health Maintenance Due Date Last Done Comments Hepatitis B Vaccine (1 of 3 - 19+ 3-dose series) 06/26 Pneumococcal Vaccine: 50+ Years (1 of 2 - PCV) 988 Colorectal Cancer Screening: Annual FOBT 2018 Colorectal Cancer Screening: Colonoscopy 2018 Colorectal Cancer Screening: Sigmoidoscopy 2018 Influenza Vaccine (#1) 2025 Insurance [facility] Care Teams Battalion Chief Relationship Specialty Start Date End Date Artemio Plaza MD [address] [phone] PCP - General Family Medicine 01/01/25
--- OUTSIDE RECORDS SUMMARY | 2025-10-15 15:02 | XMS_ITS | Data Portability ---
Author Organization [facility], Main Office Address [address] [facility] [address] [facility] [place] [address] Care Team Providers Care Directional Bore Operator Name Role Phone ARTEMIO BILLY Primary Care Provider MIRIAM HEDRICK Variety Saw Operator HILTON HERNANDEZ [facility] MISHA GIBBS General Surgeon YOSI PEREZ Associate Professor Of Psychology Assessment Encounter Date Assessment Date Assessment LastModified by Organization Details LastModified Time 02/09/2025 02/09/2025 On examination, the patient demonstrated paraspinal spasm on the left side. Based on the type of pain described, I suspect a ligamentous/MSK strain, with a herniation being less likely. Given his cardiac history and current anticoagulation, NSAIDs should be avoided and he is aware. I have recommended acetaminophen (Tylenol) 1 g every 6 hours as needed for pain, not to exceed 3 g per day. I am ordering a lumbar spine X-ray to rule out a vertebral fracture, although this is less likely given the absence of bony tenderness. The patient was advised to avoid all strenuous activities, including lifting and twisting. I recommended using a cold compress for the first 48 hours, followed by warm compresses to relieve muscle tension. A prescription for methocarbamol (Robaxin) was provided for up to 14 days, to be used as needed for muscle spasm. He was counseled regarding the risk of sedation and advised not to operate any motor vehicle until he is aware of how the medication affects him. If the X-ray is normal and symptoms begin to improve, I recommended initiating physical therapy to support recovery and improve core/back stability. In the meantime, I encouraged gentle home mobility and advised against prolonged bed rest. [id number]-[id number] topical lidocaine patches may also be used for additional localized pain relief. The patient was advised to follow a gradual return to activity and to avoid any lifting or strenuous exercise at this time. I will follow up with him in 8 weeks. Red flag symptoms were discussed, including: -Numbness or tingling -Leg weakness -Loss of bowel or bladder control -Pain radiating down the legs -Loss of sensation in the lower extremities The patient understands to seek immediate medical attention if any of these occur. shahana Not available 02/09/2025 11:10:57 05/16/2025 05/16/2025 Musculoskeletal (Back/Hip Pain): -No current complaints; symptoms have improved with rest and Robaxin. -Continue to avoid strenuous activity and follow conservative measures as needed. -No further intervention required at this time unless symptoms recur. -Follow orthopedics recommendations as planned. Hypotension: -Mildly low BP today; patient asymptomatic. -Continue monitoring with oil well services dispatcher as currently established. -No medication changes at this time plan per patient's oil well services dispatcher. Follow-Up: -Return to clinic as needed or for routine follow-up. -Patient advised to report any recurrence or worsening of symptoms. shahana Not available 05/16/2025 12:36:21 06/11/2025 06/11/2025 Tx for pneumonia -Start Augmentin (full dose, CrCl >30) plus Z-Wes. -Supportive care: Tylenol 1 g q6h (max 3 g/24h), throat lozenges, saltwater gargles, hydration, rest, humidifier, saline nasal mist. -Tessalon Perles for cough. GERD/Heartburn -Start Pepcid 40 mg daily before meals. -Lifestyle modifications: elevate head of bed, avoid dietary triggers. -If symptoms persist, consider escalation to PPI; if ongoing, refer to GI. Follow-up -Reassess in 10 days for lung sounds and reflux symptoms. shahana Not available 06/11/2025 18:08:30 Plan of Treatment Reminders Order Date Submit Date Provider Last Modified By Organization Details Last Modified Time Details Appointments None record ed. Lab CMP, serum or plasma 2024 025 ROGER [facility] (Centralized Electronic Ordering - All Locations), Patient Can Go To The Location Of Their Choice, [address] 08:07:43 PSA, serum or plasma - Screen ing 2024 025 ROGER [facility], [address], [place], [address], 11:01:36 magnes ium, serum or plasma 2024 025 ROGER [facility], [address], [address], [place], [address], 11:01:36 CBC w/ auto diff 2024 025 ROGER [facility] (Centralized Electronic Ordering - All Locations), Patient Can Go To The Location Of Their Choice, 08:07:44 TSH + free T4, serum 2024 025 ROGER [facility] (Centralized Electronic Ordering - All Locations), Patient Can Go To The Location Of Their Choice, [address] 08:07:43 unlist ed lab - thyroi d antibo dies 2024 025 ROGER [facility] (Centralized Electronic Ordering - All Locations), Patient Can Go To The Location Of Their Choice, [address] 08:07:44 lipid panel, serum 2024 025 [email or web address] [facility], [address], [address], [place], [address], 10:05:39 rapid influe nza virus A + B and SARS CoV + SARS CoV 2 Ag panel, IA, upper respir atory specim en 2024 025 ROGER In-Office Order, Internal Use Only DO Not Attach Compendium DO Not Attach Compendium, Do Not Delete/merge, [id number] 14:34:37 Referral genera ragini ochoa n referr al 2024 025 gil Brown MD, [address], [place], [address], 11:21:26 orthop edic foot/a nkle surgeo n referr al 2024 [facility], [address], [place], [address], 15:59:06 physic al therap ist referr al - Please see for LBP 2024 025 [email or web address] Not available 11:29:38 Procedures None record ed. Surgeries None record ed. Imaging XR, ankle, 3 or more view 2024 [facility], [address] [place], [address], 08:14:45 XR, lumbos acral spine, 2 or 3 view 2024 025 ROGER Not available 20:31:21 Medication Orders valacy clovir 1 gram tablet 2024 [facility]85310, [address] [place] [address], [id number], 11:01:32 amoxic illin 875 mg-pot assium clavul anate 125 mg tablet 2024 025 [facility] #48898, [address] [place] [address], [id number], 5 05:02:15 Zithro max Z-Wes 250 mg tablet 2024 025 [facility] #38648, [address] [place] [address], [id number], 5 09:28:58 benzon atate 200 mg capsul e 2024 025 [facility] #47094, [address], [place], [id number], 05:02:02 famoti dine 40 mg tablet 2024 025 [facility] #82370, [address], [place], [id number], 14:41:20 methoc arbamo l 1,000 mg tablet 2024 025 [facility] #52090, [address], [place], [id number], 05:01:32 Patient TargetsNo targets recorded. Patient Instructions Encounter Date Encounter Id Patient Instructions Last Modified By Organization Details Last Modified Time 02/09/2025 [id number] low back pain: exercises ckokar Not available 02/09/2025 09:50:38 05/16/2025 [id number] low blood pressure: care instructions ckokar Not available 05/16/2025 12:36:36 06/11/2025 [id number] Indigestion (Dyspepsia): Care Instructions ckokar Not available 06/11/2025 14:41:04 08/21/2025 [id number] When You Want to Lose Weight: Care Instructions ckokar Not available 08/21/2025 11:01:16 Prostate Cancer Screening ckokar Not available 08/21/2025 11:01:16 high blood pressure: care instructions ckokar Not available 08/21/2025 11:01:17 learning about high blood pressure ckokar Not available 08/21/2025 11:01:17 polycythemia: care instructions ckokar Not available 08/21/2025 11:01:16 Well Visit 50 to 65: Care Instructions ckokar Not available 08/21/2025 11:01:17 body mass index: care instructions ckokar Not available 08/21/2025 11:01:17 learning about healthy weight ckokar Not available 08/21/2025 11:01:17 Reason for Referral Physical Therapist Referral for Injury of back of trunk Please see for LBP Referring Physician: Artemio Billy [facility], Encounter Date: 02/09/2025 Orthopedic Foot/ankle Surgeo n Referral for Acute ankle pain Referring Physician: Artemio Billy [facility], Encounter Date: 07/02/2025 General Surgeon Referral for Lipoma of back Referring Physician: Artemio Billy [facility], Encounter Date: 08/21/2025 Results Created Date Observation Date Name Description Value Unit Range Abnormal Flag Note LastModifiedBy Organization Detail LastModifiedTime 06/11/2006/11/2025 rapid influ cindy virus A + B and SARS CoV + SARS CoV 2 Ag panel , [place], upper respi rator y speci men Unknown Analyte negati ve Not Available In-Office Order Internal Use Only DO Not Attach Compendium DO Not Attach Compendium, Do Not Delete/merge, [id number] 06/11/2025 14:00:59 06/11/2006/11/2025 rapid influ cindy virus A + B and SARS CoV + SARS CoV 2 Ag panel , IA, upper respi rator y speci men Unknown Analyte negati ve Not Available In-Office Order Internal Use Only DO Not Attach Compendium DO Not Attach Compendium, Do Not Delete/merge, [id number] 06/11/2025 14:00:59 06/11/2006/11/2025 rapid influ cindy virus A + B and SARS CoV + SARS CoV 2 Ag panel , IA, upper respi rator y speci men Unknown Analyte negati ve Not Available In-Office Order Internal Use Only DO Not Attach Compendium DO Not Attach Compendium, Do Not Delete/merge, [id number] 06/11/2025 14:00:59 08/27/2008/27/2025 CMP14 (REFL EX HGB A1C) glucose 77 mg/dL 70-99 normal Not Available [facility] ([facility]) [address], [place], [address], 08/28/2025 08:07:43 08/27/2008/27/2025 CMP14 (REFL EX HGB A1C) BUN 37 mg/dL 6-24 above high normal Not Available [facility] ([facility]) [address] [place], [address], 08/28/2025 08:07:43 08/27/20 25 08/27/2025 CMP14 (REFL EX HGB A1C) creatinine 1.56 mg/dL 0.76-1 .27 above high normal Not Available [facility] ([facility]) [address] [place], [address], 08/28/2025 08:07:43 08/27/20 25 08/27/2025 CMP14 (REFL EX HGB A1C) eGFR 52 mL/mi n/1.7 3 >59 below low normal Not Available [facility] ([facility]) [address], [place], [address], 08/28/2025 08:07:43 08/27/20 25 08/27/2025 CMP14 (REFL EX HGB A1C) BUN/creatini ne ratio 24 9-20 above high normal Not Available [facility] ([facility]) [address], [place], [address], 08/28/2025 08:07:43 08/27/20 25 08/27/2025 CMP14 (REFL EX HGB A1C) sodium 137 mmol/ L 134-14 4 normal Not Available [facility] ([facility]) [address] [place], [address], 08/28/2025 08:07:43 08/27/20 25 08/27/2025 CMP14 (REFL EX HGB A1C) potassium 4.7 mmol/ L 3.5-5. 2 normal Not Available [facility] ([facility]) [address] [place], [address], 08/28/2025 08:07:43 08/27/20 25 08/27/2025 CMP14 (REFL EX HGB A1C) chloride 102 mmol/ L 96-106 normal Not Available [facility] ([facility]) [address], [place], [address], 08/28/2025 08:07:43 08/27/2008/27/2025 CMP14 (REFL EX HGB A1C) carbon dioxide, total 26 mmol/ L 20-29 normal Not Available [facility] ([facility]) [address], [place], [address], 08/28/2025 08:07:43 08/27/20 25 08/27/2025 CMP14 (REFL EX HGB A1C) calcium 10.2 mg/dL 8.7-10 .2 normal Not Available [facility] ([facility]) [address], [place], [address], 08/28/2025 08:07:43 08/27/2008/27/2025 CMP14 (REFL EX HGB A1C) protein, total 6.6 g/dL 6.0-8. 5 normal Not Available [facility] ([facility]) [address], [place], [address], 08/28/2025 08:07:43 08/27/2008/27/2025 CMP14 (REFL EX HGB A1C) albumin 4.1 g/dL 3.8-4. 9 normal Not Available [facility] ([facility]) [address], [place], [address], 08/28/2025 08:07:43 08/27/2008/27/2025 CMP14 (REFL EX HGB A1C) globulin, total 2.5 g/dL 1.5-4. 5 Not Available [facility] ([facility]) [address] [place], [address], 08/28/2025 08:07:43 08/27/20 25 08/27/2025 CMP14 (REFL EX HGB A1C) bilirubin, total 0.4 mg/dL 0.0-1. 2 normal Not Available [facility] ([facility]) [address] [place], [address], 08/28/2025 08:07:43 08/27/20 25 08/27/2025 CMP14 (REFL EX HGB A1C) alkaline phosphatase 56 IU/L 47-123 normal Not Available [facility] ([facility]) [address] [place], [address], 08/28/2025 08:07:43 08/27/2008/27/2025 CMP14 (REFL EX HGB A1C) AST (SGOT) 57 IU/L 0-40 above high normal Not Available [facility] ([facility]) [address] [place], [address], 08/28/2025 08:07:43 08/27/2008/27/2025 CMP14 (REFL EX HGB A1C) ALT (SGPT) 66 IU/L 0-44 above high normal Not Available [facility] ([facility]) [address] [place], [address], 08/28/2025 08:07:43 08/27/2008/27/2025 TSH+F REE T4 TSH 0.492 uIU/m L 0.450- 4.500 normal Not Available [facility] ([facility]) [address] [place], [address], 08/28/2025 08:07:43 08/27/2008/27/2025 TSH+F REE T4 T4,free(dire ct) 1.12 NG/dL 0.82-1 .77 normal Not Available [facility] ([facility]) [address] [place], [address], 08/28/2025 08:07:43 08/27/20 25 08/27/2025 CBC WITH DIFFE RENTI AL/PL ATELE T WBC 6.9 x10e3 /uL 3.4-10 .8 normal Not Available [facility] ([facility]) [address] [place], [address], 08/28/2025 08:07:44 08/27/20 25 08/27/2025 CBC WITH DIFFE RENTI AL/PL ATELE T RBC 6.57 x10e6 /uL 4.14-5 .80 above high normal Not Available [facility] ([facility]) [address], [place], [address], 08/28/2025 08:07:44 08/27/20 25 08/27/2025 CBC WITH DIFFE RENTI AL/PL ATELE T hemoglobin 17.1 g/dL 13.0-1 7.7 normal Not Available [facility] ([facility]) [address], [place], [address], 08/28/2025 08:07:44 08/27/20 25 08/27/2025 CBC WITH DIFFE RENTI AL/PL ATELE T hematocrit 55.1 % 37.5-5 1.0 above high normal Not Available [facility] ([facility]) [address], [place], [address], 08/28/2025 08:07:44 08/27/20 25 08/27/2025 CBC WITH DIFFE RENTI AL/PL ATELE T MCV 84 fL 79-97 normal Not Available [facility] ([facility]) [address] [place], [address], 08/28/2025 08:07:44 08/27/20 25 08/27/2025 CBC WITH DIFFE RENTI AL/PL ATELE T MCH 26.0 pg 26.6-3 3.0 below low normal Not Available [facility] ([facility]) [address] [place], [address], 08/28/2025 08:07:44 08/27/20 25 08/27/2025 CBC WITH DIFFE RENTI AL/PL ATELE T MCHC 31.0 g/dL 31.5-3 5.7 below low normal Not Available [facility] ([facility]) [address], [place], [address], 08/28/2025 08:07:44 08/27/20 25 08/27/2025 CBC WITH DIFFE RENTI AL/PL ATELE T RDW 14.3 % 11.6-1 5.4 Not Available [facility] ([facility]) [address], [place], [address], 08/28/2025 08:07:44 08/27/20 25 08/27/2025 CBC WITH DIFFE RENTI AL/PL ATELE T platelets 307 x10e3 /uL 150-45 0 normal Not Available [facility] ([facility]) [address], [place], [address], 08/28/2025 08:07:44 08/27/20 25 08/27/2025 CBC WITH DIFFE RENTI AL/PL ATELE T neutrophils 79 % not estab. normal Not Available [facility] ([facility]) [address], [place], [address], 08/28/2025 08:07:44 08/27/20 25 08/27/2025 CBC WITH DIFFE RENTI AL/PL ATELE T lymphs 8 % not estab. normal Not Available [facility] ([facility]) [address], [place], [address], 08/28/2025 08:07:44 08/27/20 25 08/27/2025 CBC WITH DIFFE RENTI AL/PL ATELE T monocytes 6 % not estab. normal Not Available [facility] ([facility]) [address], [place], [address], 08/28/2025 08:07:44 08/27/20 25 08/27/2025 CBC WITH DIFFE RENTI AL/PL ATELE T eos 6 % not estab. normal Not Available [facility] ([facility]) [address], [place], [address], 08/28/2025 08:07:44 08/27/20 25 08/27/2025 CBC WITH DIFFE RENTI AL/PL ATELE T basos 1 % not estab. normal Not Available [facility] ([facility]) [address], [place], [address], 08/28/2025 08:07:44 08/27/20 25 08/27/2025 CBC WITH DIFFE RENTI AL/PL ATELE T immature cells CRAFT COORDINATOR Not Available [facility] ([facility]) [address] [place], [address], 08/28/2025 08:07:44 08/27/20 25 08/27/2025 CBC WITH DIFFE RENTI AL/PL ATELE T neutrophils (absolute) 5.5 x10e3 /uL 1.4-7. 0 normal Not Available [facility] ([facility]) [address] [place], [address], 08/28/2025 08:07:44 08/27/20 25 08/27/2025 CBC WITH DIFFE RENTI AL/PL ATELE T lymphs (absolute) 0.6 x10e3 /uL 0.7-3. 1 below low normal Not Available [facility] ([facility]) [address] [place], [address], 08/28/2025 08:07:44 08/27/20 25 08/27/2025 CBC WITH DIFFE RENTI AL/PL ATELE T monocytes(ab solute) 0.4 x10e3 /uL 0.1-0. 9 normal Not Available [facility] ([facility]) [address] [place], [address], 08/28/2025 08:07:44 08/27/20 25 08/27/2025 CBC WITH DIFFE RENTI AL/PL ATELE T eos (absolute) 0.4 x10e3 /uL 0.0-0. 4 normal Not Available [facility] ([facility]) [address] [facility] [place], [address], 08/28/2025 08:07:44 08/27/20 25 08/27/2025 CBC WITH DIFFE RENTI AL/PL ATELE T baso (absolute) 0.0 x10e3 /uL 0.0-0. 2 normal Not Available [facility] ([facility]) [address], [place], [address], 08/28/2025 08:07:44 08/27/20 25 08/27/2025 CBC WITH DIFFE RENTI AL/PL ATELE T immature granulocytes 0 % not estab. Not Available [facility] ([facility]) [address], [place], [address], 08/28/2025 08:07:44 08/27/20 25 08/27/2025 CBC WITH DIFFE RENTI AL/PL ATELE T immature grans (abs) 0.0 x10e3 /uL 0.0-0. 1 Not Available [facility] ([facility]) [address], [place], [address], 08/28/2025 08:07:44 08/27/20 25 08/27/2025 CBC WITH DIFFE RENTI AL/PL ATELE T NRBC CRAFT COORDINATOR Not Available [facility] ([facility]) [address], [place], [address], 08/28/2025 08:07:44 08/27/20 25 08/27/2025 CBC WITH DIFFE RENTI AL/PL ATELE T hematology comments: CRAFT COORDINATOR Not Available [facility] ([facility]) [address], [place], [address], 08/28/2025 08:07:44 08/27/20 25 08/27/2025 THYRO ID ANTIB ODIES thyroid peroxidase (tpo) Ab 11 IU/mL 0-34 normal Not Available [facility] ([facility]) [address], [place], [address], 08/28/2025 08:07:44 08/27/2008/28/2025 THYRO ID ANTIB ODIES thyroglobuli n antibody <1.0 IU/mL 0.0-0. 9 Thyro globu carley Antib melvina measu red by [facility] It shoul d be noted that the prese nce of thyro globu carley antib odies may not be patho genic nor diagn ostic , espec ially at very low level s. The assay manuf actur er has found that four perce nt of indiv idual s witho ut evide nce of thyro id disea se or autoi mmuni ty will have posit thong TgAb level s up to 4 IU/mL . Not Available [facility] ([facility]) [address], [place], [address], 08/28/2025 08:07:44 02/10/2002/09/2025 XR, lumba r spine Lumbar Spine 2 or 3 Views Reason : injury of lower back COMPAR ELENA: None. FINDIN GS: No bone lesion s or fractu res. Status post fusion at the L5-S1 level. Facet arthro mane at L5-S1. Endpla te spurri ng at L2-L3 and L3-L4 and L4-L5. Normal soft tissue s. IMPRES ADAMS: No acute abnorm ality. WSN: [id number] Orderi ng Physic alma: June Billy Dictat ed By: Husam Dan MD Dictat ed Date/T abraham: 7:10 pm Review ed By: Husam Dan MD Signed By: Husam Dan MD Signed Date/T abraham: 7:10 pm Transc ribed By: DUC Transc ribed Date/T abraham: 7:10 pm Patien t Class[facility] [address] , [place], [address], 02/24/2025 09:22:13 02/10/2002/09/2025 XR, lumbo sacra l spine , 2 or 3 view No observ ation record ed. ckocharla [facility] [address] [place], [address], 02/10/2025 15:26:58 05/05/20 25 05/04/2025 elect forrest dhillongr am No observ ation record ed. [facility] [address] [place], [address], 05/05/2025 15:01:50 07/03/20 25 07/02/2025 XR, ankle , 3 or more view Ankle Min 3 Views Right Reason : pain in right ankle COMPAR ELENA: None. FINDIN GS: 3 views right ankle demons trate no acute fractu re or disloc ation. There is cortic al irregu larity within the distal tibia- fibula joint likely degene rative and possib ly relate d to prior trauma . The ankle mortis e is intact . Vascul ar calcif icatio n. IMPRES ADAMS: No acute osseou s abnorm ality. Degene rative change s. If clinic al sympto ms persis t consid er right ankle [facility] assess . WSN: [id number] Orderi ng Physic alma: June Billy ai Dictat ed By: Pb Julien MD Dictat ed Date/T abraham: 8:11 am Review ed By: Pb Julien MD Signed By: Pb Julien MD Signed Date/T abraham: 8:11 am Transc ribed By: DUC Transc ribed Date/T abraham: 8:06 am Patien t Class: Outpat ient [facility] (Outpt Imaging) [address] [facility], [place], [address], 07/04/2025 23:33:08 07/03/20 25 07/03/2025 XR, ankle , 3 or more view No observ ation record ed. [email or web address] [facility] [address] [place], [address], 07/09/2025 12:28:20 Result Notes Documentation Provider Name and Address Organization Details Recorded Time Xr, Lumbar Spine : Lumbar Spine 2 or 3 Views Reason: injury of lower back COMPARISON: None. FINDINGS: No bone lesions or fractures. Status post fusion at the L5-S1 level. Facet arthropathy at L5-S1. Endplate spurring at L2-L3 and L3-L4 and L4-L5. Normal soft tissues. IMPRESSION: No acute abnormality. WSN: [id number] Ordering Physician: Artemio Billy Dictated By: Husam Dan MD Dictated Date/Time: 02/09/25 7:10 pm Reviewed By: Husam Dan MD Signed By: Husam Dan MD Signed Date/Time: 02/09/25 7:10 pm Transcribed By: DUC Transcribed Date/Time: 02/09/25 7:10 pm Patient Class: Outpatient [facility] 02/24/2025 09:22:13 Xr, Ankle, 3 Or More View : Ankle Min 3 Views Right Reason: pain in right ankle COMPARISON: None. FINDINGS: 3 views right ankle demonstrate no acute fracture or dislocation. There is cortical irregularity within the distal tibia-fibula joint likely degenerative and possibly related to prior trauma. The ankle mortise is intact. Vascular calcification. IMPRESSION: No acute osseous abnormality. Degenerative changes. If clinical symptoms persist consider right ankle MRI to further assess. WSN: [id number] Ordering Physician: Artemio Billy Dictated By: Pb Claudio MD Dictated Date/Time: 07/03/25 8:11 am Reviewed By: Pb Claudio MD Signed By: Pb Claudio MD Signed Date/Time: 07/03/25 8:11 am Transcribed By: DUC Transcribed Date/Time: 07/03/25 8:06 am Patient Class: Outpatient Artemio Billy MD [address] [address], [place], [address], [facility] 07/03/2025 08:29:41 Problems Name Problem SNOMED Code Status Onset Date Resolution Date Notes Provider Name and Address Organization Details Recorded Time Factor V Leiden mutation [id number] Active Gilma bartlett [place] null, [facility] 4 10:12:05 Obstructive sleep apnea syndrome 34110078 Active 2023 Artemio Billy MD [address], [place], [phone], [facility] 4 07:27:21 Gastroesoph ageal reflux disease without esophagitis [id number] Completed 202310/26/2023 Artemio Billy MD [address], [place], [address], [facility] 4 10:38:36 Bipolar disorder [id number] Completed 202310/26/2023 Artemio Billy MD [address], [place], [address], [facility] 4 10:38:19 Venous varices 277555533 Active 2023 Artemio Billy MD [address], [place], [address], [facility] 4 07:31:46 Right bundle branch block 90178457 Active 2023 Artemio Billy MD [address], [place], [address], [facility] 4 07:32:04 Obesity 667938632 Active 2023 Artemio Billy MD [address], [place], [address], [facility] 4 07:32:14 Body mass index 30+ - obesity 736740695 Active 2023 Artemio Billy MD [address], [place], [address], [facility] 4 07:32:22 Essential hypertensio n 01267224 Completed 202310/26/2023 Artemio Billy MD [address], [place], [address], [facility] 4 10:38:51 Hyperlipide dov 16609126 Active 2023 Artemio Billy MD [address], [place], [address], [facility] 4 07:32:40 Testicular hypofunctio n 580655520 Active 2023 Artemio Billy MD [address], [place], [address], [facility] 4 07:32:54 Umbilical hernia 398077400 Completed 202308/21/2025 Artemio Billy MD [address], [place], [address], [facility] 5 11:08:21 Congestive heart failure 42335152 Active 2023 Artemio Billy MD [address], [place], [address], [facility] 4 10:36:56 Atrial fibrillatio n 89232937 Active 2023 Artemio Billy MD [address], [place], [address], [facility] 4 10:37:08 History of pulmonary embolus 613316125 Active 2023 Artemio Billy MD [address], [place], [address], [facility] 4 10:38:04 Mixed anxiety and depressive disorder 207335862 Active 2023 Artemio Billy MD [address], [place], [address], [facility] 4 10:39:40 Generalized anxiety disorder 33066466 Active 2023 Artemio Billy MD [address], [place], [address], [facility] 4 14:09:02 Major depressive disorder 997166286 Active 2023 Artemio Billy MD [address], [place], [address], [facility] 4 14:09:18 Chronic kidney disease stage 2 704005248 Active 2023 Artemio Billy MD [address], [place], [address], [facility] 4 17:09:44 Herpes labialis 6349360 Active 2023 Artemio Billy MD [address], [place], [address], [facility] 4 16:23:00 Dependence on continuous positive airway pressure ventilation 910472654 Active 2024 Artemio Billy MD [address], [place], [address], [facility] 5 09:21:14 Cardiomyopa thy 68893725 Active 2024 Artemio Billy MD [address], [place], [address], [facility] 5 10:56:20 History of repair of umbilical hernia 904547116 Active 2024 Artemio Billy MD [address], [place], [address], [facility] 5 11:08:17 Problem Notes None recorded. Procedures Surgical History Date Name Laterality Status Provider Name and Address Organization Details Recorded Time 08/06/20 polysomnography completed Helen Marmolejo [facility] 10/22/2023 08:47:17 primary repair of umbilical hernia completed Gilma knox MA [facility] 10/26/2023 10:18:07 lumbar spinal fusion completed Gilam knox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
--- OUTSIDE RECORDS SUMMARY | 2025-10-15 15:02 | XMS_ITS | Encounter Summary ---
Author Organization [facility] Address [address] [place] [address] Phone Care Team Providers Care Contact Lens Lathe Operator Name Role Phone Artemio Plaza MD Primary Care Provider [phone] Encounter Details Date Type Department Care Team (Late st Contact Info) Description 06/06/2024 Procedure Pass [facility] Endoscopy Admitting Dept Virtual Department [address] [place] [address] Social History Tobacco Use Types Packs/Day Years [...] on filedocumented in this encounter Care Teams Contact Lens Lathe Operator Relationship Specialty Start Date End Date Artemio Plaza MD [address] [phone] PCP - General Family Medicine 10/27/23 documented as of this encounter Additional Source Comments The information contained in this document represents components of the legal health record. It is not the complete legal health record.[facility]
--- OUTSIDE RECORDS SUMMARY | 2025-10-15 15:02 | XMS_ITS | Patient Health Record ---
Author Organization [facility] Mati ari[place] Address [address] [place] [address] Care Team Providers Care Offset Assistant Press Operator Name Role Phone Artemio Plaza Primary Care Provider Bhavana Pennington Unavailable [phone] Allergies No Known Allergies Reason For Referral [...] Referring Provider Last Name Bola Referred Organization [facility] Referred Provider Bhavana Lopez Referred Address [address] [place], [place],[address], Referred Provider Specialty Podiatry Referral Priority Routine [...] Status Risk Notes Problem Acquired hallux valgus (30252806) Hallux valgus (acquired), right foot (M20.11) Active confirmed Problem Acquired hammer toe of right foot ([id number]) Other hammer toe(s) (acquired), right foot (M20.41) Active confirmed Encounters Encounter Location Date Provider Diagnosis [facility] [address] [place] [address] 11/01/2024 Bhavana Lopez Plan Of Treatment Pending Test Test Name Order Date X ray : Foot, right 3V 11/23/2022 Insurance Providers Payer Name Payer Address Payer Phone Subscriber Number Group Number Insured Name Patient Relationship to Insured Coverage Start Date Coverage End Date [facility] [address] [place] [address] [phone] [id number] Sandeep Victor Self - patient is the insured Medical (General) History Medical History History ICD Code Broken bones Chicken pox Bone implants/screws Surgical History Surgery Date(Month/Year) L 5 S1 Fusion C4 disc replacement 11/11/22 C3 C4 disc replacement /fusion
--- OUTSIDE RECORDS SUMMARY | 2025-10-15 15:02 | XMS_ITS | Encounter Summary ---
Author Organization [facility] Address [address] [place] [id number] Phone Care Team Providers Care Math Tutor Name Role Phone Lorenzo Dawkins MD Primary Care Provider Unknown, Unknown Primary Care Provider Artemio Kinney MD Primary Care Provider [phone] Encounter Details Date Type Department Care Team (Late st Contact Info) Description 09/06/2023 Procedure Pass [facility], Ct Scan - [address] [address] Social History Tobacco Use Types Packs/Day Years [...] on filedocumented in this encounter Care Teams Math Tutor Relationship Specialty Start Date End Date Lorenzo Dawkins MD [address] [place] [address] [place] [address] PCP - General Internal Medicine 08/24/23 10/20/23 Unknown, Unknown, MD PCP - General 10/21/23 10/26/23 Artemio Plaza MD [address] [phone] PCP - General Family Medicine 10/27/23 documented as of this encounter Additional Source Comments The information contained in this document represents components of the legal health record. It is not the complete legal health record.[facility]
--- OUTSIDE RECORDS SUMMARY | 2025-10-15 15:02 | XMS_ITS | Encounter Summary ---
Author Organization [facility] Address [address] [place] [address] Phone Care Team Providers Care Agriculturist Name Role Phone Artemio Plaza MD Primary Care Provider [phone] Encounter Details Date Type Department Care Team (Late Contact Info) Description 08/29/2025 Documentation Only [facility] [address] [place] [address] Martin Minor [place] [address] [place] [phone] Social History Tobacco Use Types Packs/Day Years [...] Visit [facility] [address] [place] [address] Juan Pablo Chery [address] [place] [address] documented as of this encounter Visit Diagnoses Not on filedocumented in this encounter Care Teams Agriculturist Relationship Specialty Start Date End Date Artemio Plaza MD [address] [phone] PCP - General Family Medicine 01/01/25 documented as of this encounter
--- OUTSIDE RECORDS SUMMARY | 2025-10-15 15:02 | XMS_ITS | Continuity of Care Document ---
Author Organization [facility], Main Office Address [address] [place] [address] Care Team Providers Care Rodent Exterminator Name Role Phone ARTEMIO BILLY Primary Care Provider MIRIAM HEDRICK Manager Loan HILTON HERNANDEZ [facility] dudley MISHA GIBBS General Surgeon YOSI PEREZ Berry Grower Assessment No assessment recorded. Plan of Treatment Reminders Order Date Submit Date Provider Last Modified By Organization Details Last Modified Time Details Appointments None record ed. Lab CMP, serum or plasma 2024 025 ROGER [facility] (Centralized Electronic Ordering - All Locations), Patient Can Go To The Location Of Their Choice, [address] 08:07:43 PSA, serum or plasma - Screen ing 2024 025 ROGER [facility], [address], [place] [address], [place], [address], 5 11:01:36 magnes ium, serum or plasma 2024 025 ROGER [facility], [address], [place] [address], [place], [address], 5 11:01:36 CBC w/ auto diff 2024 025 ROGER [facility] (Centralized Electronic Ordering - All Locations), Patient Can Go To The Location Of Their Choice, [address] 08:07:44 TSH + free T4, serum 2024 025 ROGER [facility] (Centralized Electronic Ordering - All Locations), Patient Can Go To The Location Of Their Choice, [address] 08:07:43 unlist ed lab - thyroi d antibo dies 2024 025 ROGER [facility] (Centralized Electronic Ordering - All Locations), Patient Can Go To The Location Of Their Choice, [address] 08:07:44 lipid panel, serum 2024 025 [email or web address] [facility], [address] [facility], [facility] [place], [address], 10:05:39 Referral erlinda ochoa n referr al 2024 gil Brown MD, [address], [facility] [address], [place], [address], 11:21:26 Procedures None record ed. Surgeries None record ed. Imaging None record ed. Medication Orders valacy clovir 1 gram tablet 2024 [id number], [address], [place], [id number], 11:01:32 Patient TargetsNo targets recorded. Patient Instructions Encounter Date Encounter Id Patient Instructions Last Modified By Organization Details Last Modified Time 08/21/2025 [id number] When You Want to Lose Weight: Care [...] Not available 08/21/2025 11:01:17 Reason for Referral General Surgeon Referral for Lipoma of back Referring Physician: Artemio Billy, Family Medicine, Encounter Date: 08/21/2025 Results Created Date Observation Date Name Description Value Unit Range Abnormal Flag Note LastModifiedBy Organization Detail LastModifiedTime 08/27/2008/27/2025 CMP14 (REFL EX HGB A1C) glucose 77 mg/dL 70-99 normal Not Available [facility] ([facility]) [address] [place], [address], 08/28/2025 08:07:43 08/27/2008/27/2025 CMP14 (REFL EX HGB A1C) BUN 37 mg/dL 6-24 above high normal Not Available [facility] ([facility]) [address] [place], [address], 08/28/2025 08:07:43 08/27/20 25 08/27/2025 CMP14 (REFL EX HGB A1C) creatinine 1.56 mg/dL 0.76-1 .27 above high normal Not Available [facility] ([facility]) [address] [place], [address], 08/28/2025 08:07:43 08/27/20 25 08/27/2025 CMP14 (REFL EX HGB A1C) eGFR 52 mL/mi n/1.7 3 >59 below low normal Not Available [facility] ([facility]) [address] [place], [address], 08/28/2025 08:07:43 08/27/20 25 08/27/2025 CMP14 (REFL EX HGB A1C) BUN/creatini ne ratio 24 9-20 above high normal Not Available [facility] ([facility]) [address] [place], [address], 08/28/2025 08:07:43 08/27/2008/27/2025 CMP14 (REFL EX HGB A1C) sodium 137 mmol/ L 134-14 4 normal Not Available [facility] ([facility]) [address] [place], [address], 08/28/2025 08:07:43 08/27/2008/27/2025 CMP14 (REFL EX HGB A1C) potassium 4.7 mmol/ L 3.5-5. 2 normal Not Available [facility] ([facility]) [address] [place], [address], 08/28/2025 08:07:43 08/27/2008/27/2025 CMP14 (REFL EX HGB A1C) chloride 102 mmol/ L 96-106 normal Not Available [facility] ([facility]) [address] [place], [address], 08/28/2025 08:07:43 08/27/2008/27/2025 CMP14 (REFL EX HGB A1C) carbon dioxide, total 26 mmol/ L 20-29 normal Not Available [facility] ([facility]) [address] [place], [address], 08/28/2025 08:07:43 08/27/20 25 08/27/2025 CMP14 (REFL EX HGB A1C) calcium 10.2 mg/dL 8.7-10 .2 normal Not Available [facility] ([facility]) [address] [place], [address], 08/28/2025 08:07:43 08/27/2008/27/2025 CMP14 (REFL EX HGB A1C) protein, total 6.6 g/dL 6.0-8. 5 normal Not Available [facility] ([facility]) [address] [place], [address], 08/28/2025 08:07:43 08/27/2008/27/2025 CMP14 (REFL EX HGB A1C) albumin 4.1 g/dL 3.8-4. 9 normal Not Available [facility] ([facility]) [address] [place], [address], 08/28/2025 08:07:43 08/27/20 25 08/27/2025 CMP14 (REFL EX HGB A1C) globulin, total 2.5 g/dL 1.5-4. 5 Not Available [facility] ([facility]) [address] [place], [address], 08/28/2025 08:07:43 08/27/2008/27/2025 CMP14 (REFL EX HGB A1C) bilirubin, total 0.4 mg/dL 0.0-1. 2 normal Not Available [facility] ([facility]) [address] [place], [address], 08/28/2025 08:07:43 08/27/20 25 08/27/2025 CMP14 (REFL EX HGB A1C) alkaline phosphatase 56 IU/L 47-123 normal Not Available [facility] ([facility]) [address] [place], [address], 08/28/2025 08:07:43 08/27/20 25 08/27/2025 CMP14 (REFL EX HGB A1C) AST (SGOT) 57 IU/L 0-40 above high normal Not Available [facility] ([facility]) [address] [place], [address], 08/28/2025 08:07:43 08/27/2008/27/2025 CMP14 (REFL EX HGB A1C) ALT (SGPT) 66 IU/L 0-44 above high normal Not Available [facility] ([facility]) [address] [place], [address], 08/28/2025 08:07:43 08/27/20 25 08/27/2025 TSH+F REE T4 TSH 0.492 uIU/m L 0.450- 4.500 normal Not Available [facility] ([facility]) [address] [place], [address], 08/28/2025 08:07:43 08/27/20 25 08/27/2025 TSH+F REE T4 T4,free(dire ct) 1.12 NG/dL 0.82-1 .77 normal Not Available [facility] ([facility]) [address] [place], [address], 08/28/2025 08:07:43 08/27/20 25 08/27/2025 CBC WITH DIFFE RENTI AL/PL ATELE T WBC 6.9 x10e3 /uL 3.4-10 .8 normal Not Available [facility] ([facility]) [address] [place], [address], 08/28/2025 08:07:44 08/27/20 25 08/27/2025 CBC WITH DIFFE RENTI AL/PL ATELE T RBC 6.57 x10e6 /uL 4.14-5 .80 above high normal Not Available [facility] ([facility]) [address] [place], [address], 08/28/2025 08:07:44 08/27/20 25 08/27/2025 CBC WITH DIFFE RENTI AL/PL ATELE T hemoglobin 17.1 g/dL 13.0-1 7.7 normal Not Available [facility] ([facility]) [address] [place], [address], 08/28/2025 08:07:44 08/27/20 25 08/27/2025 CBC WITH DIFFE RENTI AL/PL ATELE T hematocrit 55.1 % 37.5-5 1.0 above high normal Not Available [facility] ([facility]) [address] [place], [address], 08/28/2025 08:07:44 11/10/08/27/2025 CBC WITH DIFFE RENTI AL/PL ATELE T MCV 84 fL 79-97 normal Not Available [facility] ([facility]) [address] [place], [address], 08/28/2025 08:07:44 08/27/20 25 08/27/2025 CBC WITH DIFFE RENTI AL/PL ATELE T MCH 26.0 pg 26.6-3 3.0 below low normal Not Available [facility] ([facility]) [address] [facility], [place], [address], 08/28/2025 08:07:44 08/27/20 25 08/27/2025 CBC WITH DIFFE RENTI AL/PL ATELE T MCHC 31.0 g/dL 31.5-3 5.7 below low normal Not Available [facility] ([facility]) [address] [place], [address], 08/28/2025 08:07:44 08/27/20 25 08/27/2025 CBC WITH DIFFE RENTI AL/PL ATELE T RDW 14.3 % 11.6-1 5.4 Not Available [facility] ([facility]) [address] [place], [address], 08/28/2025 08:07:44 08/27/20 25 08/27/2025 CBC WITH DIFFE RENTI AL/PL ATELE T platelets 307 x10e3 /uL 150-45 0 normal Not Available [facility] ([facility]) [address] [place], [address], 08/28/2025 08:07:44 08/27/20 25 08/27/2025 CBC WITH DIFFE RENTI AL/PL ATELE T neutrophils 79 % not estab. normal Not Available [facility] ([facility]) [address] [place], [address], 08/28/2025 08:07:44 08/27/20 25 08/27/2025 CBC WITH DIFFE RENTI AL/PL ATELE T lymphs 8 % not estab. normal Not Available [facility] ([facility]) [address] [place], [address], 08/28/2025 08:07:44 08/27/20 25 08/27/2025 CBC WITH DIFFE RENTI AL/PL ATELE T monocytes 6 % not estab. normal Not Available [facility] ([facility]) [address] [facility], [place], [address], 08/28/2025 08:07:44 08/27/20 25 08/27/2025 CBC WITH DIFFE RENTI AL/PL ATELE T eos 6 % not estab. normal Not Available [facility] ([facility]) [address] [facility], [place], [address], 08/28/2025 08:07:44 08/27/20 25 08/27/2025 CBC WITH DIFFE RENTI AL/PL ATELE T basos 1 % not estab. normal Not Available [facility] ([facility]) [address] [place], [address], 08/28/2025 08:07:44 08/27/20 25 08/27/2025 CBC WITH DIFFE RENTI AL/PL ATELE T immature cells GRINDER CHIPPER Not Available [facility] ([facility]) [address] [place], [address], 08/28/2025 08:07:44 08/27/20 25 08/27/2025 CBC WITH DIFFE RENTI AL/PL ATELE T neutrophils (absolute) 5.5 x10e3 /uL 1.4-7. 0 normal Not Available [facility] ([facility]) [address] [place], [address], 08/28/2025 08:07:44 08/27/20 25 08/27/2025 CBC WITH DIFFE RENTI AL/PL ATELE T lymphs (absolute) 0.6 x10e3 /uL 0.7-3. 1 below low normal Not Available [facility] ([facility]) [address] [facility], [place], [address], 08/28/2025 08:07:44 08/27/20 25 08/27/2025 CBC WITH DIFFE RENTI AL/PL ATELE T monocytes(ab solute) 0.4 x10e3 /uL 0.1-0. 9 normal Not Available [facility] ([facility]) [address] [facility], [place], [address], 08/28/2025 08:07:44 08/27/20 25 08/27/2025 CBC WITH DIFFE RENTI AL/PL ATELE T eos (absolute) 0.4 x10e3 /uL 0.0-0. 4 normal Not Available [facility] ([facility]) [address] [facility], [place], [address], 08/28/2025 08:07:44 08/27/20 25 08/27/2025 CBC WITH DIFFE RENTI AL/PL ATELE T baso (absolute) 0.0 x10e3 /uL 0.0-0. 2 normal Not Available [facility] ([facility]) [address] [facility], [place], [address], 08/28/2025 08:07:44 08/27/20 25 08/27/2025 CBC WITH DIFFE RENTI AL/PL ATELE T immature granulocytes 0 % not estab. Not Available [facility] ([facility]) [address] [facility], [place], [address], 08/28/2025 08:07:44 08/27/20 25 08/27/2025 CBC WITH DIFFE RENTI AL/PL ATELE T immature grans (abs) 0.0 x10e3 /uL 0.0-0. 1 Not Available [facility] ([facility]) [address] [facility], [place], [address], 08/28/2025 08:07:44 08/27/20 25 08/27/2025 CBC WITH DIFFE RENTI AL/PL ATELE T NRBC GRINDER CHIPPER Not Available [facility] ([facility]) [address] [facility], [place], [address], 08/28/2025 08:07:44 08/27/20 25 08/27/2025 CBC WITH DIFFE RENTI AL/PL ATELE T hematology comments: GRINDER CHIPPER Not Available [facility] ([facility]) [address] [facility], [place], [address], 08/28/2025 08:07:44 08/27/20 25 08/27/2025 THYRO ID ANTIB ODIES thyroid peroxidase (tpo) Ab 11 IU/mL 0-34 normal Not Available [facility] ([facility]) [address] [facility], [place], [address], 08/28/2025 08:07:44 08/27/20 25 08/28/2025 THYRO ID ANTIB ODIES thyroglobuli n antibody <1.0 IU/mL 0.0-0. 9 Thyro globu carley Antib melvina measu red by Ottoniel fuentes Coult er Metho dolog y It shoul d [...] to 4 IU/mL . Not Available [facility] ([facility]) [address] [facility], [place], [address], 08/28/2025 08:07:44 Result Notes None recorded. Problems Name Problem SNOMED Code Status Onset Date Resolution Date Notes Provider Name and Address Organization Details Recorded Time Factor V Leiden mutation 879507631 Active KERRIE Hudson [facility] [place] 4 10:12:05 Obstructive sleep apnea syndrome 60213775 Active 2023 Artemio Billy MD [address], [place], [address], [facility] 4 07:27:21 Gastroesoph ageal reflux disease without esophagitis 251999110 Completed 202310/26/2023 Artemio Billy MD [address], [place], [address], [facility] 4 10:38:36 Bipolar disorder 48318679 Completed 202310/26/2023 Artemio Billy MD [address], [place], [address], [facility] 4 10:38:19 Venous varices 584375588 Active 2023 Artemio Billy MD [address], [place], [address], [facility] 4 07:31:46 Right bundle branch block 55376494 Active 2023 Artemio Billy MD [address], [place], [address], [facility] 4 07:32:04 Obesity 985275787 Active 2023 Artemio Billy MD [address], [place], [address], [facility] 4 07:32:14 Body mass index 30+ - obesity 485140819 Active 2023 Artemio Billy MD [address], [place], [address], [facility] 4 07:32:22 Essential hypertensio n 64801965 Completed 202310/26/2023 Artemio Billy MD [address], [place], [address], [facility] 4 10:38:51 Hyperlipide dov 62317313 Active 2023 Artemio Billy MD [address], [place], [address], [facility] 4 07:32:40 Testicular hypofunctio n 423515587 Active 2023 Artemio Billy MD [address], [place], [address], [facility] 4 07:32:54 Umbilical hernia 547549604 Completed 202308/21/2025 Artemio Billy MD [address], [place], [address], [facility] 5 11:08:21 Congestive heart failure 99252209 Active 2023 Artemio Billy MD [address], [place], [address], [facility] 4 10:36:56 Atrial fibrillatio n 02002108 Active 2023 Artemio Billy MD [address], [place], [address], [facility] 4 10:37:08 History of pulmonary embolus 178380683 Active 2023 Artemio Billy MD [address], [place], [address], [facility] 4 10:38:04 Mixed anxiety and depressive disorder 107450227 Active 2023 Artemio Billy MD [address], [place], [address], [facility] 4 10:39:40 Generalized anxiety disorder 72163959 Active 2023 Artemio Billy MD [address], [place], [address], [facility] 4 14:09:02 Major depressive disorder 934490045 Active 2023 Artemio Billy MD [address], [place], [address], [facility] 4 14:09:18 Chronic kidney disease stage 2 753065378 Active 2023 Artemio Billy MD [address], [place], [address], [facility] 4 17:09:44 Herpes labialis 1292260 Active 2023 Artemio Billy MD [address], [place], [address], [facility] 4 16:23:00 Dependence on continuous positive airway pressure ventilation 147825236 Active 2024 Artemio Billy MD [address], [place], [address], [facility] 5 09:21:14 Cardiomyopa thy 79279203 Active 2024 Artemio Billy MD [address], [place], [address], [facility] 5 10:56:20 History of repair of umbilical hernia 186389308 Active 2024 Artemio Billy MD [address], [place], [address], [facility] 5 11:08:17 Problem Notes None recorded. Procedures Surgical History Date Name Laterality Status Provider Name and Address Organization Details Recorded Time 08/06/20 polysomnography completed Helen Marmolejo [facility] 10/22/2023 08:47:17 primary repair of umbilical hernia completed Gilma knox MA [facility] 10/26/2023 10:18:07 lumbar spinal fusion completed Gilma knox MA [facility] 10/26/2023 10:18:24 surgical procedure on cervical spine completed Gilma knox MA [facility] 10/26/2023 10:18:33 Imaging Results None recorded. Procedure [...] and Address Organization Details Last Updated DateTime 177.8 cm 33.4 kg/m2 070358. 02 g 91 /min 96 % 98.3 [degF] 95/54 mm[Hg] Gilma bartlett MA [facility] [place] 10:38:29 Social History Question Answer Notes LastModified by Organizat ion Details LastModified Time Tobacco Smoking Status 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 Information not available 10/26/2023 What is your [...] 50 mcg/0.25mL dose 021 completed KERRIE Sweet MA [facility] 11/14/2024 09:03:49 COVID-19, mRNA, LNP-S, PF, 100 mcg/0.5mL dose or 50 mcg/0.25mL dose 021 completed Helen Bateman KERRIE estrellita, [facility] 11/14/2024 09:03:49 COVID-19, mRNA, LNP-S, PF, 100 mcg/0.5mL dose or 50 mcg/0.25mL dose 021 completed KERRIE Sweet, [facility] 11/14/2024 09:03:49 zoster recombinant 024 completed KERRIE Sweet, [facility] 11/14/2024 09:03:49 Pneumococcal conjugate PCV20, polysaccharide [id number] conjugate, adjuvant, PF 024 completed KERRIE Sweet, [facility] 11/14/2024 09:03:49 Tdap 024 completed KERRIE Sweet, [facility] 11/14/2024 09:03:49 Influenza, split virus, trivalent, preservative 013 completed KERRIE Sweet, [facility] 11/14/2024 09:03:49 Pneumococcal conjugate PCV20, polysaccharide [id number] conjugate, adjuvant, PF 024 completed Not Available [facility] 08/21/2025 10:19:04 zoster recombinant 024 completed Not Available [facility] 08/21/2025 10:19:04 Tdap 024 completed Not Available [facility] 08/21/2025 10:19:04 Influenza, split virus, quadrivalent, PF 024 cancelled patient objection Artemio Billy MD [address], [address], [facility] 10/26/2023 11:28:15 Past Encounters Encounter ID Performer Location Encounter Start Date Encounter Closed Date Diagnosis/Indication Diagnosis SNOMED-CT Code Diagnosis ICD10 Code Diagnosis IMO Codes Diagnosis Note [id number] Artemio Billy MD Main Office [address] [address] 08/21/2025 10:17:54 08/21/2025 11:21:26 Adult health examination 538300827 Z00.00 Patient was counseled on healthy diet, exercise and nutrition due to Body mass index is 33.4 kg/m . Last PSADate: 11/07/24Res ult: 1.5Plan: ordered on T. Last Colonoscop y:Date: 06/06/24Res ult: no polypsPlan : GI recall 10 yrs Vaccines:T dAP: 10/27/23Zos ter rec: 10/27/23, reminded second [id number]: 10/27/23Inf luenza: Declined, understand riskCovid: 10/30/20, 11/27/20, 09/10/21, encourage to discuss mRNA vaccine with his cardiologi st due to his cardiac hx, maybe consider novavax.RS V: Discussed but declined. Routine labs today Immunizati on status reviewed. Will screen based on risk factors. Regular dental and ophtho care advised as well as seat belt and sunscreen use. Distracted driving discussed. Medication reconciled . Varicella vaccination 68 906554 Z23 Fatigue 37814546 R53.83 Z00.00 R73.01 Hyperlipidemia 41254816 E78.5 Z00.00 Essential hypertension 97826375 I10 Testicular hypofunction 158878100 E29.1 Gets injection and functional medicine. Secondary polycythemia 46295816 D75.1 Nocturia 179044157 R35.1 Obesity 583439341 E66.9 Weight confounded by muscle mass. Body mass index 30+ - obesity 834915730 Z68.30 Subclinica l hypothyroidism 78712469 E03.8 33033 Influenza vaccination declined 552210925 Z28.21 78589816 Herpes labialis 8864656 B00.1 refill today. Lipoma of back 438910709 D17.1 [id number] Health Concerns Section Related Observation LastModified by Organization Detai ls LastModified Time None Recorded Concern Status LastModified by Organization Details LastModified Time None Recorded Payers Encounter Date Sequence Insurance Name Policy Number Policy Vanegas Covered Member ID Vanegas Member ID Guarantor Name 08/21/2025 1 [place] [facility] [place] [place] [id number] Sandeep Victor [id number] Sandeep Victor Notes Date Note Type Note Provider Name and Address Organization Details Recorded Time 08/21/2025 text/html Generic HPI TemplateReported by Patient Here for wellness visit. Reviewed chronic medications and medical problems. Discussed screening guidelines as well as goals for fitness and weight management. Artemio Billy MD [address] [address], [place], [address], [facility] 08/21/2025 11:15:17
--- OUTSIDE RECORDS SUMMARY | 2025-10-15 15:02 | XMS_ITS | Clinical Summary ---
Author Organization [facility] Address [address] [place] [address] Phone Care Team Providers Care Director Of Direct Marketing Name Role Phone Artemio Plaza MD Primary Care Provider [phone] Allergies No known active allergies Medications FARXIGA [...] Velázquez MD - 06/06/2024 10:03 AM EDT [facility] Patient Name: Ru Kayleigh Attending MD:: SUKI VELÁZQUEZ MD, Procedure Date: 06/06/2024 10:03 AM Date of : 1970 Age: 53 Admit Type: Outpatient Gender: Male Room: [facility] Referring MD: Artemio Plaza Exam Type: Colonoscopy [...] monitored continuously. The Olympus adult variable colonoscope [id number] #6 was introduced through the anus and [...] 10:03 AM Procedure Code(s): --- Professional --- 49640, Colonoscopy, flexible; diagnostic, including collection of specimen(s) by brushing or washing, when performed (separateprocedure) --- Technical --- 00251, Colonoscopy, flexible; diagnostic, including collection of specimen(s) [...] or abscess without bleeding CPT copyright 2021 [employer]. All rights reserved. The codes documented in this report are preliminary and upon auto care center manager reviewmay be revised to meet current compliance requirements. Procedure Date: 06/06/2024 10:03:[address] [place] [address] Artemio Plaza MD GI PROCEDURE ORDERABLES Final Result from Last 3 Months or Most Recently Relevant to Health Maintenance [place] [address] [address] [place] [address] [place] [address] [facility] Care Teams Director Of Direct Marketing Relationship Specialty Start Date End Date Artemio Plaza MD [address] [address] PCP - General Family Medicine 10/27/23 Additional Source Comments The information contained in this document represents components of the legal health record. It is not the complete legal health record.[facility]
--- OUTSIDE RECORDS SUMMARY | 2025-10-15 15:02 | XMS_ITS | Encounter Summary ---
Author Organization [facility] Address [address] [place] [address] Phone Care Team Providers Care Pharmacist Hospital Name Role Phone Artemio Plaza MD Primary Care Provider [phone] Encounter Details Date Type Department Care Team (Late st Contact Info) Description 02/16/2025 Documentation Only [facility] [address] [place] [id number] Lyn Becker Social History Tobacco Use Types [...] Visit [facility] [address] [place] [address] Juan Pablo Chery DO [address] [place] [address] [place] [id number] documented as of this encounter Visit Diagnoses Not on filedocumented in this encounter Care Teams Pharmacist Hospital Relationship Specialty Start Date End Date Artemio Plaza MD [address] [phone] PCP - General Family Medicine 01/01/25 documented as of this encounter
--- OUTSIDE RECORDS SUMMARY | 2025-10-15 15:02 | XMS_ITS | Clinical Summary ---
Author Organization [facility] it Address [address] [place] [address] Care Team Providers Care Type Rolling Machine Operator Name Role Phone Artemio Plaza MD Primary Care Provider [phone] Medical History Medical History Date Comments CKD [...] Depression Screening 10/18/2024 COVID-19 Vaccine (1 - 2024-2 6 season) 2025 Influenza Vaccine (#1) 2025 HIB [...] Documents on File Type Date Recorded Patient Manager Library Expl anation Health Care Decision (hx) 09/18/2023 NIKKI JAQUEZ DIRECTIVE Care Teams Type Rolling Machine Operator Relationship Specialty Start Date End Date Artemio Plaza MD [address] [phone] PCP - General 03/20/24
== END 2025-10-15 13:06 | disposition home or self-care (01) ==
LOC: HO.BBR 13:05
PROVIDERS: PCP Family Medicine; Visit Provider Physician Assistant
DX: D75.1 Secondary polycythemia (principal)
CPT/HCPCS: 85018; 99195